=== PATIENT | female | born 1955 | race Caucasian/White ===

== ENCOUNTER 2020-12-01 11:06 | Outpatient (REF) | payer MEDICARE, SELFPAY ==
--- NOTE | ~2020-12-01 | XR_ITS ---
EXAMINATION: XR CHEST CLINICAL INFORMATION: Cough. Left chest pain. Evaluate for lesion. COMPARISON: Previous chest x-ray most recent April 2019 TECHNIQUE: 2 views of the chest were obtained. FINDINGS: The cardiac and mediastinal contours are normal. The lungs are clear. There is no pleural effusion or pneumothorax. There are degenerative changes of the thoracic spine. XR/XR chest 2V IMPRESSION: No evidence for acute disease in the chest.
[2020-12-01 11:52] LABS: MANUAL DIFF FLAG NO
[2020-12-01 12:10] LABS: Basophils Percent Auto 0.7 % (0-2); Eosinophils Absolute Auto 0.2 X10*3/uL (0.0-0.4); Hematocrit 41.2 % (37-47); Hemoglobin 13.5 g/dl (12.0-16.0); Imm Gran Abs Auto 0.01 X10*3/uL (0.00-0.03); Imm Gran Pct Auto 0.2 % (0.0-0.4); Lymphocytes Absolute Auto 1.9 X10*3/uL (1.2-4.9); Lymphocytes Percent Auto 31.1 % (20-40); Mean Corpuscular HGB Conc 32.8 g/dl (31.0-35.0); Mean Corpuscular Volume 94.7 fL (80-98); Mean Platelet Volume 9.8 fL (9.4-12.3); Monocytes Absolute Auto 0.5 X10*3/uL (0.1-1.2); Monocytes Percent Auto 7.9 % (2-11); Neutrophils Absolute Auto 3.4 X10*3/uL (2.0-8.3); Neutrophils Percent Auto 57.1 % (45-73); Platelet Count 232 X10*3/uL (160-400); Red Blood Count 4.35 X10*6/uL (4.20-5.50); Red Cell Distribution Width 12.3 % (11.0-16.0); White Blood Count 5.9 X10*3/uL (4.8-10.8)
[2020-12-01 12:24] LABS: Alanine Aminotransferase 16 U/L (0-31); Albumin Level 4.3 g/dL (3.5-5.0); Alkaline Phosphatase 58 U/L (39-117); Anion Gap 10 (12-20); Aspartate Amino Transferase 20 U/L (5-31); Bilirubin Total 0.4 mg/dL (0.0-1.0); Blood Urea Nitrogen 13 mg/dL (9-16); C Reactive Protein 0.11 mg/dL (< or = 0.50); Calcium 8.9 mg/dL (8.4-10.2); Carbon Dioxide 29 mmol/L (22-29); Chloride 105 mmol/L (96-108); Estimated Glomerular Filt Rate 54; Glucose Random 92 mg/dL (60-115); Potassium 4.8 mmol/L (3.3-5.1); Sodium 139 mmol/L (135-145); Total Protein 6.4 g/dL (6.5-8.0)
== END 2020-12-01 11:07 | disposition home or self-care (01) ==
LOC: HO.LAB 11:06
PROVIDERS: PCP Internal Medicine; Visit Provider Internal Medicine
DX: R05 Cough (principal); J44.9 Chronic obstructive pulmonary disease, unspecified; N18.9 Chronic kidney disease, unspecified
CPT/HCPCS: 36415; 71046; 80053; 82550; 85025; 86140

== ENCOUNTER 2021-03-11 11:31 | Outpatient (REF) | payer MEDICARE, SELFPAY ==
[2021-03-11 13:48] LABS: Anion Gap 12 (12-20); Blood Urea Nitrogen 12 mg/dL (9-16); Carbon Dioxide 29 mmol/L (22-29); Chloride 105 mmol/L (96-108); Estimated Glomerular Filt Rate > 60; Glucose Random 71 mg/dL (60-115); Potassium 4.6 mmol/L (3.3-5.1); Sodium 141 mmol/L (135-145)
[2021-03-11 14:11] LABS: Vitamin D 25-OH Total 35.1 ng/mL (>30)
== END 2021-03-11 11:32 | disposition home or self-care (01) ==
LOC: HO.10HDL 11:31
PROVIDERS: PCP Internal Medicine; Visit Provider Internal Medicine
DX: J44.9 Chronic obstructive pulmonary disease, unspecified (principal); N18.9 Chronic kidney disease, unspecified; M85.80 Other specified disorders of bone density and structure, unspecified site
CPT/HCPCS: 36415; 80048; 82306

== ENCOUNTER 2021-04-26 10:28 | Outpatient (REF) | payer MEDICARE, SELFPAY ==
--- NOTE | ~2021-04-26 | MM_ITS ---
EXAMINATION: MM SCREENING DIGITAL BREAST TOMOSYNTHESIS, BILATERAL CLINICAL INFORMATION: Screening. Asymptomatic. The lifetime risk of breast cancer based on the Tyrer-Cuzick Model is 8%. COMPARISON: Mammography: 04/04/2020, 07/03/2018, 01/18/2017 TECHNIQUE: Digital breast tomosynthesis is performed in both the craniocaudal and mediolateral oblique views along with computer-aided detection (CAD). Synthesized 2D images are generated from the tomosynthesis. FINDINGS: The breasts are heterogeneously dense, which may obscure small masses (ACR BI-RADS breast composition Category c). There are no significant masses, abnormal calcifications, or other abnormalities. Parenchymal pattern is similar to prior studies. The axilla and skin contours are unremarkable. MM/MM tomosynthesis screening BI IMPRESSION: No mammographic evidence of malignancy. ASSESSMENT: BI-RADS 1: Negative RECOMMENDATION: Routine annual mammography screening. This patient's information was entered into a reminder system with a target due date for their next mammogram.
== END 2021-04-26 10:29 | disposition home or self-care (01) ==
LOC: HO.MAMMO 10:28
PROVIDERS: PCP Internal Medicine; Visit Provider Internal Medicine
DX: Z12.31 Encounter for screening mammogram for malignant neoplasm of breast (principal)
CPT/HCPCS: 77063; 77067

== ENCOUNTER 2021-05-20 11:51 | Outpatient (REF) | payer MEDICARE, SELFPAY ==
[2021-05-20 13:28] LABS: MANUAL DIFF FLAG NO
[2021-05-20 13:35] LABS: Basophils Percent Auto 0.3 % (0-2); Eosinophils Absolute Auto 0.1 X10*3/uL (0.0-0.4); Eosinophils Percent Auto 1.6 % (0-4); Hematocrit 41.4 % (37-47); Hemoglobin 13.2 g/dl (12.0-16.0); Imm Gran Abs Auto 0.03 X10*3/uL (0.00-0.03); Imm Gran Pct Auto 0.3 % (0.0-0.4); Lymphocytes Absolute Auto 1.8 X10*3/uL (1.2-4.9); Lymphocytes Percent Auto 20.4 % (20-40); Mean Corpuscular HGB Conc 31.9 g/dl (31.0-35.0); Mean Corpuscular Hemoglobin 31.1 pg (27.0-33.0); Mean Corpuscular Volume 97.6 fL (80-98); Mean Platelet Volume 9.5 fL (9.4-12.3); Monocytes Absolute Auto 0.7 X10*3/uL (0.1-1.2); Monocytes Percent Auto 7.7 % (2-11); Neutrophils Absolute Auto 6.2 X10*3/uL (2.0-8.3); Neutrophils Percent Auto 69.7 % (45-73); Platelet Count 201 X10*3/uL (160-400); Red Blood Count 4.24 X10*6/uL (4.20-5.50); Red Cell Distribution Width 13.2 % (11.0-16.0)
[2021-05-20 14:09] LABS: Alanine Aminotransferase 22 U/L (0-31); Albumin Level 4.2 g/dL (3.5-5.0); Alkaline Phosphatase 61 U/L (39-117); Anion Gap 12 (12-20); Aspartate Amino Transferase 24 U/L (5-31); Bilirubin Total 0.4 mg/dL (0.0-1.0); Blood Urea Nitrogen 14 mg/dL (9-16); Calcium 9.3 mg/dL (8.4-10.2); Carbon Dioxide 31 mmol/L (22-29); Chloride 103 mmol/L (96-108); Estimated Glomerular Filt Rate > 60; Glucose Random 53 mg/dL (60-115); Potassium 4.5 mmol/L (3.3-5.1); Sodium 141 mmol/L (135-145); Total Protein 6.4 g/dL (6.5-8.0)
== END 2021-05-20 11:52 | disposition home or self-care (01) ==
LOC: HO.10HDL 11:51
PROVIDERS: PCP Internal Medicine; Visit Provider Internal Medicine
DX: J44.9 Chronic obstructive pulmonary disease, unspecified (principal); N18.9 Chronic kidney disease, unspecified
CPT/HCPCS: 36415; 80053; 85025

== ENCOUNTER 2021-11-11 10:57 | Outpatient (REF) | payer MEDICARE, SELFPAY ==
[2021-11-11 13:59] LABS: MANUAL DIFF FLAG NO
[2021-11-11 14:05] LABS: Basophils Percent Auto 0.3 % (0-2); Eosinophils Absolute Auto 0.1 X10*3/uL (0.0-0.4); Eosinophils Percent Auto 0.6 % (0-4); Hematocrit 42.8 % (37.0-47.0); Imm Gran Abs Auto 0.03 X10*3/uL (0.00-0.03); Imm Gran Pct Auto 0.3 % (0.0-0.4); Lymphocytes Absolute Auto 1.5 X10*3/uL (1.2-4.9); Lymphocytes Percent Auto 13.9 % (20-40); Mean Corpuscular HGB Conc 32.7 g/dl (31.0-35.0); Mean Corpuscular Hemoglobin 32.9 pg (27.0-33.0); Mean Corpuscular Volume 100.7 fL (80.0-98.0); Mean Platelet Volume 9.7 fL (9.4-12.3); Monocytes Absolute Auto 0.7 X10*3/uL (0.1-1.2); Monocytes Percent Auto 6.3 % (2-11); Neutrophils Absolute Auto 8.4 x10*3/uL (2.0-8.3); Neutrophils Percent Auto 78.6 % (45-73); Platelet Count 233 X10*3/uL (160-400); Red Blood Count 4.25 X10*6/uL (4.20-5.50); Red Cell Distribution Width 13.2 % (11.0-16.0); White Blood Count 10.6 X10*3/uL (4.8-10.8)
[2021-11-11 14:38] LABS: Anion Gap 12 (12-20); Blood Urea Nitrogen 15 mg/dL (9-16); Calcium 9.4 mg/dL (8.4-10.2); Carbon Dioxide 28 mmol/L (22-29); Chloride 104 mmol/L (96-108); Estimated Glomerular Filt Rate 59; Free T4 (Free Thyroxine) 0.99 ng/dL (0.71-1.85); Glucose Random 166 mg/dL (60-115); Potassium 4.2 mmol/L (3.3-5.1); Sodium 140 mmol/L (135-145); Thyroid Stimulating Hormone 1.27 uIU/mL (0.32-4.0)
[2021-11-11 14:41] LABS: Vitamin B12 > 2000 pg/mL (200-900)
== END 2021-11-11 10:58 | disposition home or self-care (01) ==
LOC: HO.10HDL 10:57
PROVIDERS: Visit Provider Internal Medicine
DX: Z01.818 Encounter for other preprocedural examination (principal); R53.83 Other fatigue; J44.9 Chronic obstructive pulmonary disease, unspecified
CPT/HCPCS: 36415; 80048; 82306; 82607; 84439; 84443; 85025

== ENCOUNTER 2021-11-24 11:07 | Outpatient (REF) | payer MEDICARE, SELFPAY ==
[2021-11-24 14:15] LABS: Estimated Average Glucose 111 mg/dL; Hemoglobin A1c % 5.5 %
[2021-11-24 14:25] LABS: Alanine Aminotransferase 19 U/L (0-31); Albumin Level 4.5 g/dL (3.5-5.0); Alkaline Phosphatase 54 U/L (39-117); Anion Gap 11 (12-20); Aspartate Amino Transferase 26 U/L (5-31); Bilirubin Total 0.4 mg/dL (0.0-1.0); Blood Urea Nitrogen 16 mg/dL (9-16); C Reactive Protein 0.04 mg/dL (< or = 0.50); Calcium 9.5 mg/dL (8.4-10.2); Carbon Dioxide 29 mmol/L (22-29); Chloride 103 mmol/L (96-108); Estimated Glomerular Filt Rate > 60; Glucose Random 76 mg/dL (60-115); Potassium 4.4 mmol/L (3.3-5.1); Sodium 139 mmol/L (135-145); Total Protein 6.8 g/dL (6.5-8.0)
== END 2021-11-24 11:08 | disposition home or self-care (01) ==
LOC: HO.10HDL 11:07
PROVIDERS: Visit Provider Internal Medicine
DX: R53.83 Other fatigue (principal); J44.9 Chronic obstructive pulmonary disease, unspecified; R73.9 Hyperglycemia, unspecified
CPT/HCPCS: 36415; 80053; 83036; 86140

== ENCOUNTER 2022-02-07 10:09 | Outpatient (REF) | payer MEDICARE, SELFPAY ==
--- NOTE | ~2022-02-07 | XR_ITS ---
EXAMINATION: XR CHEST CLINICAL INFORMATION: COPD COMPARISON: Previous chest x-ray November 2020 TECHNIQUE: 2 views of the chest were obtained. FINDINGS: The cardiac and mediastinal contours are stable. The lungs are clear. There is no pleural effusion or pneumothorax. There are degenerative changes of the spine. XR/XR chest 2V IMPRESSION: No evidence for acute disease in the chest.
== END 2022-02-07 10:10 | disposition home or self-care (01) ==
LOC: HO.XRAY 10:09
PROVIDERS: PCP Internal Medicine; Visit Provider Internal Medicine
DX: R53.83 Other fatigue (principal); J44.9 Chronic obstructive pulmonary disease, unspecified; Z72.0 Tobacco use
CPT/HCPCS: 71046

== ENCOUNTER 2022-04-26 12:04 | Outpatient (REF) | payer MEDICARE, SELFPAY ==
[2022-04-26 13:41] LABS: MANUAL DIFF FLAG NO
[2022-04-26 13:44] LABS: Basophils Absolute Auto 0.1 X10*3/uL (0.0-0.2); Basophils Percent Auto 0.7 % (0-2); Eosinophils Absolute Auto 0.1 X10*3/uL (0.0-0.4); Eosinophils Percent Auto 0.7 % (0-4); Hematocrit 42.2 % (37.0-47.0); Hemoglobin 13.9 g/dl (12.0-16.0); Imm Gran Abs Auto 0.02 X10*3/uL (0.00-0.03); Imm Gran Pct Auto 0.3 % (0.0-0.4); Lymphocytes Absolute Auto 1.8 X10*3/uL (1.2-4.9); Lymphocytes Percent Auto 24.2 % (20-40); Mean Corpuscular HGB Conc 32.9 g/dl (31.0-35.0); Mean Platelet Volume 9.5 fL (9.4-12.3); Monocytes Absolute Auto 0.5 X10*3/uL (0.1-1.2); Monocytes Percent Auto 6.8 % (2-11); Neutrophils Percent Auto 67.3 % (45-73); Platelet Count 181 X10*3/uL (160-400); Red Blood Count 4.35 X10*6/uL (4.20-5.50); White Blood Count 7.4 X10*3/uL (4.8-10.8)
[2022-04-26 14:14] LABS: Alanine Aminotransferase 16 U/L (0-31); Albumin Level 4.2 g/dL (3.5-5.0); Alkaline Phosphatase 54 U/L (39-117); Anion Gap 11 (12-20); Aspartate Amino Transferase 20 U/L (5-31); Bilirubin Total 0.3 mg/dL (0.0-1.0); Blood Urea Nitrogen 15 mg/dL (9-16); C Reactive Protein 0.15 mg/dL (< or = 0.50); Carbon Dioxide 29 mmol/L (22-29); Chloride 105 mmol/L (96-108); Estimated Glomerular Filt Rate > 60; Glucose Random 71 mg/dL (60-115); Potassium 4.8 mmol/L (3.3-5.1); Sodium 140 mmol/L (135-145); Total Protein 6.4 g/dL (6.5-8.0)
[2022-04-26 14:30] LABS: Thyroid Stimulating Hormone 1.07 uIU/mL (0.32-4.0)
== END 2022-04-26 12:05 | disposition home or self-care (01) ==
LOC: HO.10HDL 12:04
PROVIDERS: Visit Provider Internal Medicine
DX: R53.83 Other fatigue (principal); J44.9 Chronic obstructive pulmonary disease, unspecified; R25.1 Tremor, unspecified
CPT/HCPCS: 36415; 80053; 84439; 84443; 85025; 86140

== ENCOUNTER 2022-05-02 09:31 | Outpatient (REF) | payer MEDICARE, SELFPAY ==
--- NOTE | ~2022-05-02 | MM_ITS ---
EXAMINATION: MM SCREENING DIGITAL BREAST TOMOSYNTHESIS, BILATERAL CLINICAL INFORMATION: Screening. Asymptomatic. The lifetime risk of breast cancer based on the Tyrer-Cuzick Model is 10%. COMPARISON: Mammography: 04/26/2021, 04/04/2020, 07/03/2018 TECHNIQUE: Digital breast tomosynthesis is performed in both the craniocaudal and mediolateral oblique views along with computer-aided detection (CAD). Synthesized 2D images are generated from the tomosynthesis. FINDINGS: The breasts are heterogeneously dense, which may obscure small masses (ACR BI-RADS breast composition Category c). There are no significant masses, abnormal calcifications, or other abnormalities. Parenchymal pattern is similar to prior studies. There is no developing density or architectural abnormality. The axilla and skin contours are unremarkable. No significant changes. MM/MM tomosynthesis screening BI IMPRESSION: No mammographic evidence of malignancy. ASSESSMENT: BI-RADS 1: Negative RECOMMENDATION: Routine annual mammography screening. This patient's information was entered into a reminder system with a target due date for their next mammogram.
== END 2022-05-02 09:32 | disposition home or self-care (01) ==
LOC: HO.MAMMO 09:31
PROVIDERS: PCP Internal Medicine; Visit Provider Internal Medicine
DX: Z12.31 Encounter for screening mammogram for malignant neoplasm of breast (principal)
CPT/HCPCS: 77063; 77067

== ENCOUNTER 2022-07-14 11:16 | Outpatient (REF) | payer MEDICARE, SELFPAY ==
[2022-07-14 13:30] LABS: MANUAL DIFF FLAG NO
[2022-07-14 13:34] LABS: Basophils Percent Auto 0.4 % (0-2); Eosinophils Absolute Auto 0.1 X10*3/uL (0.0-0.4); Eosinophils Percent Auto 1.4 % (0-4); Hemoglobin 13.8 g/dl (12.0-16.0); Imm Gran Abs Auto 0.02 X10*3/uL (0.00-0.03); Imm Gran Pct Auto 0.3 % (0.0-0.4); Lymphocytes Absolute Auto 1.3 X10*3/uL (1.2-4.9); Lymphocytes Percent Auto 19.3 % (20-40); Mean Corpuscular HGB Conc 32.9 g/dl (31.0-35.0); Mean Corpuscular Hemoglobin 30.7 pg (27.0-33.0); Mean Corpuscular Volume 93.3 fL (80.0-98.0); Monocytes Absolute Auto 0.6 X10*3/uL (0.1-1.2); Monocytes Percent Auto 8.9 % (2-11); Neutrophils Absolute Auto 4.8 x10*3/uL (2.0-8.3); Neutrophils Percent Auto 69.7 % (45-73); Platelet Count 214 X10*3/uL (160-400); Red Cell Distribution Width 12.2 % (11.0-16.0)
[2022-07-14 14:38] LABS: Vitamin B12 > 2000 pg/mL (200-900)
== END 2022-07-14 11:17 | disposition home or self-care (01) ==
LOC: HO.10HDL 11:16
PROVIDERS: Visit Provider Internal Medicine Medical Oncology
DX: R74.8 Abnormal levels of other serum enzymes (principal)
CPT/HCPCS: 36415; 82607; 85025

== ENCOUNTER 2022-08-24 11:30 | Outpatient (REF) | payer MEDICARE, SELFPAY ==
--- NOTE | ~2022-08-24 | XR_ITS ---
EXAMINATION: XR CHEST CLINICAL INFORMATION: Shortness of breath, COPD COMPARISON: Chest radiographs 02/07/2022, 12/01/2020 TECHNIQUE: 2 views of the chest were obtained. FINDINGS: There is subtle fullness left hilum with subsegmental atelectasis anterior left upper lobe and fine perihilar reticulonodular opacities representing change from prior exams. No effusion. The costophrenic sulci are clear. The heart is normal in size. The vascularity is normal. Right lung is unremarkable. Right hilum and visualized mediastinal contours are unremarkable. No acute bony abnormality. XR/XR chest 2V IMPRESSION: 1. Subsegmental atelectasis anterior left upper lobe with subtle fullness left hilum. 2. Fine perihilar reticulonodular opacities representing change from prior exams. No effusion. 3. Recommend CT chest with contrast for further evaluation.
== END 2022-08-24 11:31 | disposition home or self-care (01) ==
LOC: HO.XRAY 11:30
PROVIDERS: PCP Internal Medicine; Visit Provider Internal Medicine
DX: J44.9 Chronic obstructive pulmonary disease, unspecified (principal); R06.02 Shortness of breath
CPT/HCPCS: 71046

== ENCOUNTER 2022-09-06 14:10 | Outpatient (REF) | payer MEDICARE, SELFPAY ==
[2022-09-06 15:03] LABS: Anion Gap 15 (12-20); Blood Urea Nitrogen 12 mg/dL (9-16); Calcium 9.4 mg/dL (8.4-10.2); Carbon Dioxide 28 mmol/L (22-29); Chloride 98 mmol/L (96-108); Estimated Glomerular Filt Rate > 60; Glucose Random 190 mg/dL (60-115); Potassium 4.3 mmol/L (3.3-5.1); Sodium 137 mmol/L (135-145)
== END 2022-09-06 14:11 | disposition home or self-care (01) ==
LOC: HO.LAB 14:10
PROVIDERS: PCP Internal Medicine; Referring Provider Internal Medicine Medical Oncology; Visit Provider Internal Medicine
DX: J44.9 Chronic obstructive pulmonary disease, unspecified (principal)
CPT/HCPCS: 36415; 80048

== ENCOUNTER 2022-09-07 12:15 | Outpatient (REF) | payer MEDICARE, SELFPAY ==
[2022-09-07 13:38] LABS: Hematocrit 40.9 % (37.0-47.0); Mean Corpuscular HGB Conc 31.8 g/dl (31.0-35.0); Mean Corpuscular Hemoglobin 29.4 pg (27.0-33.0); Mean Corpuscular Volume 92.5 fL (80.0-98.0); Mean Platelet Volume 9.6 fL (9.4-12.3); NRBC Pct Auto 0.2 /100WBC (0.0-0.2); Platelet Count 229 X10*3/uL (160-400); Red Blood Count 4.42 X10*6/uL (4.20-5.50); Red Cell Distribution Width 12.3 % (11.0-16.0); White Blood Count 18.7 X10*3/uL (4.8-10.8)
[2022-09-07 14:06] LABS: Atypical Lymph Absolute Manual 0.2 x10*3/uL; Atypical Lymphs Percent Manual 1 % (0-6); Band Neutrophils Percent 8 % (3-5); Basophils Abs Manual 0.2 X10*3/uL (0.0-0.2); Basophils Percent Manual 1 % (0-2); Lymphocytes Absolute Manual 1.3 X10*3/uL (1.2-4.9); Lymphocytes Percent Manual 7 % (20-40); Metamyelocytes Absolute 0.4 X10*3/uL; Metamyelocytes Percent 2 %; Monocytes Absolute Manual 0.6 X10*3/uL (0.1-1.2); Monocytes Percent Manual 3 % (2-11); Neutrophils Absolute Manual 16.1 X10*3/uL (2.0-8.3); Neutrophils Percent Manual 78 % (45-73)
[2022-09-07 14:07] LABS: Platelet Estimate NORMAL (NORMAL); Platelet Morphology Comment NORMAL; RBC Morphology NORMAL
[2022-09-07 14:11] LABS: Alanine Aminotransferase 23 U/L (0-31); Albumin Level 3.4 g/dL (3.5-5.0); Alkaline Phosphatase 66 U/L (39-117); Anion Gap 15 (12-20); Aspartate Amino Transferase 50 U/L (5-31); Bilirubin Total 0.4 mg/dL (0.0-1.0); Blood Urea Nitrogen 13 mg/dL (9-16); C Reactive Protein 16.31 mg/dL (< or = 0.50); Calcium 9.6 mg/dL (8.4-10.2); Carbon Dioxide 30 mmol/L (22-29); Chloride 97 mmol/L (96-108); Estimated Glomerular Filt Rate > 60; Free T4 (Free Thyroxine) 1.05 ng/dL (0.71-1.85); Glucose Random 89 mg/dL (60-115); Lipase 18 U/L (8-78); Potassium 4.3 mmol/L (3.3-5.1); Sodium 138 mmol/L (135-145); Thyroid Stimulating Hormone 0.85 uIU/mL (0.32-4.0)
== END 2022-09-07 12:16 | disposition home or self-care (01) ==
LOC: HO.10HDL 12:15
PROVIDERS: Visit Provider Internal Medicine
DX: R53.83 Other fatigue (principal); J44.9 Chronic obstructive pulmonary disease, unspecified; K21.9 Gastro-esophageal reflux disease without esophagitis; R63.4 Abnormal weight loss
CPT/HCPCS: 36415; 80053; 83690; 84439; 84443; 85007; 85027; 86140

== ENCOUNTER 2022-09-07 12:45 | Outpatient (REF) | payer MEDICARE, SELFPAY ==
--- NOTE | ~2022-09-07 | CT_ITS ---
EXAMINATION: CT CHEST WITHOUT AND WITH CONTRAST CLINICAL INFORMATION: Shortness of breath, abnormal chest x-ray and fullness of the left hilum. COMPARISON: None. TECHNIQUE: Multidetector volumetric CT imaging of the chest was obtained before and after the administration of 50 mL of Omnipaque 350 intravenous contrast without immediate adverse reactions. Axial MIP volume rendering provided. Sagittal and coronal reformatted images were obtained. This CT examination was performed using dose optimization techniques as appropriate, variously including the following: *Automated exposure control *Adjustment of mA and/or kV according to patient size (this includes techniques or standardized protocols for targeted exams where dose is matched to indication/reason for exam; i.e. extremities or head) *Use of iterative reconstruction technique DLP: 140 mGy-cm FINDINGS: The exam is limited due to lack of IV contrast. TERRAZZO ROLLER: Well-inflated lungs. There is mild haziness in the left upper lungs. LUNGS: There is bilateral emphysematous changes of both lungs. There is a dense left upper lobe consolidation/atelectasis with slight ipsilateral mediastinal shift. The left upper lobe bronchus has a soft tissue mass or debris and is best visualized on axial image 24/4 through 26/4. An Intrabronchial lesion is suspected. No metastatic pulmonary nodules visualized. There is plate-like atelectasis in the right upper lobe medially. MEDIASTINUM: The heart size and the great vessels are normal caliber. The thyroid lobes are symmetric and normal. The central trachea and the right bronchus are widely patent. The left proximal bronchus is patent. There is calcification of left mid bronchus with soft tissue mass or secretions. There is abnormal subcarinal soft tissue mass/lymph node measuring 2.6 x 3.8 cm. Prominent left hilar lymph nodes are seen. CORONARY ARTERY CALCIFICATION: None visualized on this study. PLEURA: Tiny left pleural effusion is noted. No pleural calcification or pneumothorax seen. AXILLA: Small shotty lymph nodes in the axilla, nonspecific. The chest wall is unremarkable. UPPER ABDOMEN: Visualized liver, spleen, pancreas and bilateral adrenal glands are unremarkable. OSSEOUS STRUCTURES: No aggressive lytic or sclerotic process seen. There is moderate ventral spondylosis in the mid and lower dorsal spine. CT/CT chest wo/w IV con IMPRESSION: Large left upper lobe consolidation/atelectasis most likely secondary to obstructive mass, lesion or debris in the left upper lobe bronchus. There is abnormal left hilar and mediastinal adenopathy. Recommend bronchoscopy for further evaluation. Diffuse emphysema without any underlying metastatic lung nodules. Minimal plate-like atelectasis of the right upper lobe. Fleischner guidelines were followed.
[2022-09-07] MEDS: iohexoL 350 MG/ML 100 ML INFUS..BTL IV (13:35)
== END 2022-09-07 12:46 | disposition home or self-care (01) ==
LOC: HO.CT 12:45
PROVIDERS: PCP Internal Medicine; Visit Provider Internal Medicine
DX: R06.02 Shortness of breath (principal); R94.31 Abnormal electrocardiogram [ECG] [EKG]
CPT/HCPCS: 71270; Q9967

== ENCOUNTER → 2022-09-09 08:16 | Outpatient (BNVA) | payer MEDICARE, SELFPAY | PROVIDERS: PCP Internal Medicine; Visit Provider Surgery | DX: J98.11 Atelectasis (principal); R59.0 Localized enlarged lymph nodes | CPT/HCPCS: 99202 ==

== ENCOUNTER 2022-09-12 09:22 | Day surgery (SDC) | payer MEDICARE, SELFPAY ==
[2022-09-12] VITALS (11 sets, daily range): BP systolic 92–126; BP diastolic 56–81; PULSE 90–114; RESP 18–23; TEMP 36.7–37.3; O2SAT 87–95; BMI 21.9
--- NOTE | 2022-09-12 08:18 | MHC.SHP ---
Pre-Procedural Eval Section A Date of Service: 09/12/22 The patient is an INPATIENT: No The History & Physical has been completed within 30 days and I have reviewed it.: No Section B Chief Complaint: Pneumonia, unspecified organism Details of Present Illness: 67-year-old woman current smoker currently smoking 4-5 cigarettes per day but previously was 1-1 and half packs per day starting at age 14 presented to her primary care with progressively worsening shortness of breath. A chest x-ray was done which showed a mass versus collapse of the left upper lobe and this was followed quite appropriately with a CT scan of the chest which was reviewed interpreted by me directly and discussed at our multidisciplinary conference. This CT scan was done on 09/07/2022 which shows a totally obstructed left upper lobe with the left upper lobe bronchus obstructed at the origin with either mass or mucus/foreign body. In addition, there is significant mediastinal lymphadenopathy including AP window, prevascular, and subcarinal lymph nodes all measuring up to 2 cm in size. Relevant Family History (Specify if Yes): No Relevant Social History: Tobacco Use Present Medications: see Short Stay Collaborative assessment Medical History: No relevant PMH History of Previous Operations: No relevant previous surgery Allergies: Allergies Allergy/AdvReac Type Severity Reaction Status Date / Time Penicillins [PENICILLINS] Allergy Unknown UNKNOWN Unverified 09/09/22 08:48 Review of Systems Sugical H&P ROS: Negative: Constitution, Cardiovascular, Neurological, Psychiatric, Hem-Onc, Allergic/Immunologic, Gastrointestinal, Musculoskeletal and Integumentary and Yes, Specify: Respiratory (cough, Dyspnea) Exam Surgical H&P Exam: Normal: HEENT, Normal: Heart, Normal: Extremities, Normal: Abdomen, Normal: Skin and Normal: Neurological and Significant Findings: Lungs (dimished) Plan Diagnosis/Plan: Change (EBUS and bronchoscopy) I have reviewed the history and physical and performed a pertinent physical examination on my patient. No changes have occurred unless specified.
[2022-09-12] MEDS: Albuterol Sulfate (0.083%) 2.5 MG/3 ML VIAL.NEB INHALE (10:30)
--- NOTE | 2022-09-12 11:15 | HO.ANESPROP2 ---
HPI - Anesthesia Eval Consult details Narrative: 67 F for EBUS and broncoscopy PMFSH Active Problems Active Problems: All Active Problems (Updated 09/12/22 @ 09:42 by Senait Flores RN) Collapse of left lung (Acute) Mediastinal lymphadenopathy (Acute) Past Medical History Medical History (Updated 09/12/22 @ 11:18 by Senait Flores RN) Anxiety COPD (chronic obstructive pulmonary disease) Depression Hip pain, right Family History Family history of problems with anesthesia: No Surgical History Surgical History (Updated 09/12/22 @ 09:40 by Senait Flores RN) History of colonoscopy Hx of tonsillectomy History of Problems with Anesthesia: No Social History Social History Patient Tobacco Use Status: Current everyday Tobacco user Tobacco use type: Cigarette Cigarette Packs Per Day: 0.5 Cigarettes Per Day: 4 Years Smoked: 50 Use of substances other than those prescribed or required for medical reasons: No Substance Use Type Other:: former percocet Are you DNR?: No Advance Directives: No Advance Directives Information Provided: Yes Meds Allergies Allergy/AdvReac Type Severity Reaction Status Date / Time Penicillins [PENICILLINS] Allergy Unknown Rash Verified 09/12/22 09:38 bee pollen [bee stings] Allergy Anaphylaxis Verified 09/12/22 09:38 Home Medications Medication Instructions Recorded Confirmed Last Taken Type alprazolam 0.25 mg tablet (Xanax) 0.25 mg PO BID PRN Anxiety 09/09/22 09/12/22 09/12/22 01:30 History buspirone 10 mg tablet 10 mg PO DAILY 09/09/22 09/12/22 09/12/22 06:30 History clonidine HCl 0.1 mg tablet 0.05 mg PO BID 09/09/22 09/12/22 Unknown History fluoxetine 20 mg capsule 20 mg PO BID 09/09/22 09/12/22 09/12/22 06:30 History fluticasone 250 mcg-salmeterol 50 1 inh inhalation BID 09/09/22 09/12/22 09/12/22 06:30 History mcg/dose blistr powdr for inhalation (Wixela Inhub) methadone 5 mg tablet 5 mg PO DAILY 09/09/22 09/12/22 09/12/22 07:30 History albuterol sulfate 2.5 mg/3 mL 1 vial inhalation Q4H PRN 09/12/22 09/12/22 Unknown History (0.083 %) solution for nebulization Shortness Of Breath Or Wheezing Exam Exam Date and Time: September 12, 2022 1115 Height,Weight and Vital Signs: Height 5 ft Weight 50.802 kg Last Vital Signs Temp 98.9 F 09/12/22 09:54 Pulse 96 09/12/22 09:54 Resp 20 09/12/22 09:54 BP 126/72 09/12/22 09:54 Pulse Ox 87 L 09/12/22 09:54 O2 Del Method 09/12/22 09:54 Airway Mallampati Class: III TM Dist: >3cm Denture: Upper and Lower Loose/Missing/Broken Teeth: Yes Heart: S1,S2 Lungs: diminished breath sounds Assessment and Plan Assessment Anesthesia Assessment: Anesthesia Plan Discussed and Chart Reviewed Final Anesthetic Review Family History of Problems with Anesthesia: No History of Problems with Anesthesia: No NPO: Yes ASA Class: III (urgent ) Final Preanesthetic Review: Meds/Allgs Chart Reviewed, Consent Obtained/Reviewed and Anes Risks/Benef Reviewed Patient Risk: High Procedure Risk: Intermediate Anesthetic Plan Anesthetic Plan: GA Disposition: Standard PACU
--- NOTE | 2022-09-12 13:33 | PM.OP ---
Brief Operative Note Date of Service: 09/12/22 Pre-op diagnosis: atelectasis, lymphadenopathy Post-op diagnosis: other (lung cancer, post obstructive pneumonia) Procedure: EBUS with TBNA, bronchoscopy with biopsy Implants: Surgeon: Pb Levine MD Anesthesia: GETA Was an Field Marketing Specialist used for this Procedure?: No Estimated blood loss (mL): 1 Pathology: other (DARLENE biopsy, stsation 7 tbna) Condition: stable Disposition: same day
--- NOTE | 2022-09-20 03:26 | OP_ITS ---
SURGEON: Pb Levine MD PREOPERATIVE DIAGNOSIS: POSTOPERATIVE DIAGNOSIS: PROCEDURE PERFORMED: Endobronchial ultrasound, bronchoscopy with transbronchial needle aspiration, bronchoscopy with biopsy. ESTIMATED BLOOD LOSS: COMPLICATIONS: ANESTHESIA: General endotracheal intubation. ASSISTANTS: SPECIMENS: PREOPERATIVE DIAGNOSES: Lymphadenopathy and atelectasis. POSTOPERATIVE DIAGNOSES: Lung cancer, postobstructive pneumonia, and lymphadenopathy. SURVEILLANCE SENSOR OPERATOR: None. DESCRIPTION OF PROCEDURE: After the patient was adequately sedated, the flexible digital bronchoscope was inserted over the ET tube to the level of the main briana. Using the endobronchial ultrasound, the lymph node stations were evaluated. The patient had a large station 7 lymph node. No significant paratracheal lymph node noted. Using ultrasound guidance, real-time transbronchial needle aspirations were collected. There were positive lymphocytes in the fluid, small cells suggesting good sampling. Although, malignancy could not be ruled in. After collecting 6 passes on the lymph node, EBUS was removed and replaced with the regular bronchoscope. The bronchoscope was navigated to the entire tracheobronchial tree. There was, however, what appeared to be a fungating mass obstructing the left upper lobe bronchus. It was also friable in nature. Please refer to . Using forceps, endobronchial biopsies were collected of the left upper lobe mass-like density. Specimens sent to pathology. Bronchial washings are also collected. The patient did have purulent secretions from the small opening of the left upper lobe. Those were rinsed and collected and sent to microbiology. Epinephrine was used with good hemostasis. No evidence of any bleeding afterwards. The patient was on oxygen prior to the procedure and she also required the same amount of oxygen after the procedure. The procedure completed. The total endoscopic time approximately half an hour. No apparent complications. INTERPRETATION: 1. Endobronchial ultrasound bronchoscopy with TBNA, 1 station, station 7. 2. Endobronchial biopsies of the left upper lobe. 3. Bronchial washings from the left upper lobe. Pb Levine MD MR/MODL / [id number]
== END 2022-09-12 15:46 | disposition home or self-care (01) ==
PROVIDERS: PCP Internal Medicine; Visit Provider Hospitalist
PROC: (CPT 31625; principal; 2022-09-12 11:00)
DX: C34.12 Malignant neoplasm of upper lobe, left bronchus or lung (principal); J98.11 Atelectasis; R59.0 Localized enlarged lymph nodes; J44.0 Chronic obstructive pulmonary disease with (acute) lower respiratory infection; J18.9 Pneumonia, unspecified organism; F17.210 Nicotine dependence, cigarettes, uncomplicated; Z79.51 Long term (current) use of inhaled steroids; Z79.899 Other long term (current) drug therapy; Z88.0 Allergy status to penicillin
CPT/HCPCS: 31625; 31652; 31623; 87070; 87077; 87186; 87205; 88112; 88172; 88173; 88177; 88305; 88341; 88342; J0171; J2250; J3010

== ENCOUNTER → 2022-09-14 10:18 | Outpatient (BNVA) | payer MEDICARE, SELFPAY | PROVIDERS: PCP Internal Medicine; Visit Provider Hospitalist | DX: C34.90 Malignant neoplasm of unspecified part of unspecified bronchus or lung (principal); J96.20 Acute and chronic respiratory failure, unspecified whether with hypoxia or hypercapnia; J18.9 Pneumonia, unspecified organism; J44.9 Chronic obstructive pulmonary disease, unspecified; J98.11 Atelectasis; R59.0 Localized enlarged lymph nodes; F17.210 Nicotine dependence, cigarettes, uncomplicated; Z99.81 Dependence on supplemental oxygen | CPT/HCPCS: 99202 ==

== ENCOUNTER 2022-09-20 09:36 | Outpatient (REF) | payer MEDICARE, SELFPAY ==
--- NOTE | ~2022-09-20 | XR_ITS ---
EXAMINATION: XR CHEST CLINICAL INFORMATION: Chest x-ray 08/24/[address] chest 09/07/2022 COMPARISON: None TECHNIQUE: 2 views of the chest were obtained. FINDINGS: The right lung is expanded and clear. There is haziness seen throughout the left lung with loss of left lung volume and mild upward tilting of left diaphragm. There is a soft tissue density/mass overlying the left hilar and suprahilar region more obvious in the present exam. Heart size is likely normal. Pulmonary vascularity is normal. No gross bony abnormality. XR/XR chest 2V IMPRESSION: 1. Left hilar and suprahilar soft tissue mass with loss of left lung volume and upward tilting of left diaphragm. 2. The right lung is expanded and clear. 3. No major change compared to previous chest x-ray 08/24/2022.
== END 2022-09-20 09:37 | disposition home or self-care (01) ==
LOC: HO.XRAY 09:36
PROVIDERS: Visit Provider Internal Medicine Medical Oncology
DX: J18.9 Pneumonia, unspecified organism (principal)
CPT/HCPCS: 71046

== ENCOUNTER 2022-10-05 11:52 | Outpatient (REF) | payer MEDICARE, SELFPAY | END 2022-10-05 11:53 | disposition home or self-care (01) | LOC: HO.CT 11:52 | PROVIDERS: PCP Internal Medicine; Visit Provider Internal Medicine | DX: Z13.89 Encounter for screening for other disorder (principal) ==

== ENCOUNTER 2022-10-06 11:49 | Outpatient (REF) | payer MEDICARE, SELFPAY ==
--- NOTE | ~2022-10-06 | CT_ITS ---
EXAMINATION: CT ABDOMEN AND PELVIS WITH CONTRAST CLINICAL INFORMATION: Staging small cell lung cancer. COMPARISON: 01/31/2017. TECHNIQUE: Multidetector volumetric images were obtained from the superior aspect of the liver through the pubic symphysis following administration 85 mL of Omnipaque 350 intravenous contrast. Sagittal and coronal reformatted images were obtained on the technologist's workstation. Oral contrast: Yes This CT examination was performed using dose optimization techniques as appropriate, variously including the following: *Automated exposure control *Adjustment of mA and/or kV according to patient size (this includes techniques or standardized protocols for targeted exams where dose is matched to indication/reason for exam; i.e. extremities or head) *Use of iterative reconstruction technique DLP: 190 mGy-cm FINDINGS: LUNG BASES: There are changes of centrilobular emphysema present. There is some bronchial wall thickening seen without bronchiectasis. There is some airspace consolidation seen within the lingula. No pleural or pericardial effusion. LIVER, GALLBLADDER, AND BILIARY TREE: There is a 3 mm low-density lesion seen within segment 2 of the liver. This may represent a cyst. No intrahepatic bile duct dilatation is present. The gallbladder is contracted and not well evaluated. There is a 3 mm calcification adjacent to the common bile duct. PANCREAS: There is some fatty atrophy of the head of the pancreas. About the junctions of the head and body of the pancreas is question of a 1.1 cm low-density lesion. No definite pancreatic duct dilatation distal to this is appreciated. No peripancreatic inflammatory changes seen. This could possibly represent a serous cystic neoplasm or a mucinous cystic neoplasm. SPLEEN: Unremarkable. ADRENAL GLANDS: Unremarkable. KIDNEYS AND URETERS: The kidneys are normal in size, shape, and attenuation. No hydronephrosis, hydroureter, or calculi seen. No perinephric stranding. There is a 6 mm low-density lesions seen within the interpolar region of the left kidney, which may be cystic or solid in nature. There is a 4 mm low-density lesion seen within the posterior interpolar region of the right kidney, which was noted on previous ultrasound study of 01/31/2017. BLADDER: Unremarkable. GASTROINTESTINAL TRACT: No dilated loops of large or small bowel are evident. No free air or free fluid is seen. The appendix is not identified. No pericolonic inflammatory changes seen. ABDOMINAL WALL: No significant hernia is appreciated. LYMPH NODES: No lymphadenopathy is appreciated. VASCULAR: Unremarkable. Portal vein is patent. Hepatic veins are patent. Visceral vessels are patent. No abdominal aortic aneurysm. PELVIC VISCERA: Unremarkable. OSSEOUS STRUCTURES: No suspicious destructive bony lesion identified. There is degenerative disc disease seen L4-S1 with grade 1 spondylolisthesis L4-L5. There is a grade 1 spondylolisthesis at the L1-L2 level with some disc space disease seen in the lower thoracic spine. CT/CT abdomen pelvis w IV con IMPRESSION: Question pancreatic lesion, which may be related to a serous cystic neoplasm or mucinous cystic neoplasm. Small low-density lesions within the liver and kidneys as described with right renal abnormality identified on previous ultrasound study of 01/31/2017. These may represent small cysts but are too small to definitely characterize and continued follow-up is recommended. Fleischner guidelines were followed.
[2022-10-06] MEDS: iohexoL 350 MG/ML 100 ML INFUS..BTL 85 ML IV (15:10)
[2022-10-06] MEDS: Barium Sulfate Oral (Mocha) 450 ML ORAL.SUSP 900 ML PO (15:11)
== END 2022-10-06 11:50 | disposition home or self-care (01) ==
LOC: HO.CT 11:49
PROVIDERS: PCP Internal Medicine; Visit Provider Internal Medicine
DX: C34.90 Malignant neoplasm of unspecified part of unspecified bronchus or lung (principal)
CPT/HCPCS: 74177; Q9967

== ENCOUNTER 2022-10-13 09:40 | Outpatient (RCR) | payer MEDICARE, SELFPAY ==
[2022-09-20 08:41] VITALS: BP 155/88; PULSE 110; RESP 14; TEMP 36.2; O2SAT 94
--- NOTE | 2022-09-20 08:48 | PM.HEMONCCN ---
Subjective - Subjective Chief complaint: Consult for: Small cell carcinoma of the lung. Patient: new to practice Consult date: 09/20/22 Requesting Physician: Rosana. Primary Care Provider: Festus Quinones MD Medical Summary: DIAGNOSIS: SMALL CELL LUNG CANCER. HPI - Consult Narrative Reason for consult: Consult for: Small cell carcinoma of the lung. Narrative: Isabella Luz is a 67 year old lady, referred by Dr. Quinones on account of recent diagnosis of small cell carcinoma of the lung. She tells me she has been fatigued for a couple of years now. She has history of COPD. A couple of weeks ago she went to [facility] and complained about her pulmonary symptoms. She was prescribed a nebulizer. It did not work too well. Subsequently a chest x-ray was ordered which revealed: 1. Subsegmental atelectasis anterior left upper lobe with subtle fullness left hilum. 2. Fine perihilar reticulonodular opacities representing change from prior exams. No effusion. 3. Recommend CT chest with contrast for further evaluation. CT scan of the chest from 09/07: Large left upper lobe consolidation/atelectasis most likely secondary to obstructive mass, lesion or debris in the left upper lobe bronchus. There is abnormal left hilar and mediastinal adenopathy. Recommend bronchoscopy for further evaluation. Diffuse emphysema without any underlying metastatic lung nodules. Minimal plate-like atelectasis of the right upper lobe. She has significant mediastinal lymph nodes measuring 3-4 cm in size. In addition to that she had endobronchial disease primarily in the distal left mainstem bronchus. She underwent endobronchial ultrasound bronchoscopy with bronchoscopy. The patient did undergo EBUS transbronchial needle aspiration biopsies. Findings consistent with small cell lung cancer. She also had positive cultures for strep pneumo. The patient has a postobstructive pneumonia. She was started on antibiotics and also given prednisone. She also was placed on 3 3 L of oxygen. The patient is having hard time with her breathing. I did recommend she get admitted to the hospital for postobstructive pneumonia and acute on chronic respiratory failure. However, the patient does not want to stay in the hospital she wants to go home. FAMILY HISTORY: No known malignancy. 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 She is . Has no children. She smoked a pack-a-day for 40 years. She used to drink heavily in the past. ROS: She does feel rather fatigued. Denies fever nor chills. Appetite is not so good. She has lost weight. No headache no dizziness. She has chest pain in the mid chest over sternum. She complains of shortness of breath. She has had a cough. It hurts in the mid chest upon coughing. She has yellow some phlegm. Denies any abdominal pain nausea vomiting heartburn indigestion. Bowels are working without any gross blood in it. Denies any dysuria or hematuria. She has back pain. In she sprained her SI ligament periods since then she gets back pain from time to time. She denies any focal weakness. She does complain of depression. She has been on fluoxetine for 6 years. Denies any skin rashes no pruritus. Review of Systems - Constitutional Reports system reviewed and no additional complaints, except as documented, Reports fatigue, Reports weakness, Reports weight loss, Denies fever(s) - Eyes Reports system reviewed and no additional complaints, except as documented, Denies blurry vision - ENT Reports system reviewed and no additional complaints, except as documented - Cardiovascular Reports system reviewed and no additional complaints, except as documented, Reports chest pain, Reports chest pain at rest, Reports shortness of breath - Respiratory Reports no additional respiratory complaints, Reports chest congestion, Reports cough, Reports wheezing, Denies hemoptysis - Gastrointestinal Reports system reviewed and no additional complaints, except as documented, Denies abdominal pain, Denies nausea - Genitourinary Reports no additional female genitourinary complaints - Musculoskeletal Reports system reviewed and no additional complaints, except as documented - Integumentary/Breasts Skin/Breast: Reports no additional skin complaints - Neurologic Reports system reviewed and no additional complaints, except as documented - Psychiatric Reports system reviewed and no additional complaints, except as documented - Endocrine Reports no additional endocrine complaints - Hematologic/Lymphatic Reports system reviewed and no additional complaints, except as documented - Allergic/Immunologic Reports system reviewed and no additional complaints, except as documented Oncology Screenings - ECOG Performance Status ECOG Performance Status: 0 [facility] Medical History: Medical History (Last Reviewed 10/20/22 @ 13:14 by TRIPP Miller) Anxiety COPD (chronic obstructive pulmonary disease) COPD (chronic obstructive pulmonary disease) Depression Hip pain, right Nicotine dependence, cigarettes, uncomplicated Osteopenia Onset Date: ~2015 Pneumonia Small cell lung cancer Onset Date: ~2021 Family History: Family History (Last Reviewed 10/20/22 @ 13:14 by TRIPP Miller) Other No family history of cancer Surgical History: Surgical History (Last Reviewed 10/20/22 @ 13:14 by TRIPP Miller) H/O tooth extraction History of bronchoscopy History of colonoscopy History of tonsillectomy Social History: Social History (Last Reviewed 10/20/22 @ 13:14 by TRIPP Miller) Living Situation History: Household Members: Spouse Housing: House Housing Other:: mobile home Are you a primary critical care specialist to a significant other at home: No Do you presently have visiting nurse or other home services: Do you presently have visiting nurse or other home services comment: unknown Tobacco History: Patient Tobacco Use Status: Never used Tobacco Tobacco use type: Cigarette Years Smoked: 50 Occupation Assessmet: [email or web address] service: No Current occupational status: retired Home Medications and Allergies Home Medications Medication Instructions Recorded Confirmed Type alprazolam 0.25 mg tablet (Xanax) 0.25 mg PO BID PRN Anxiety 09/09/22 10/20/22 History buspirone 10 mg tablet 10 mg PO BID 09/09/22 10/20/22 History clonidine HCl 0.1 mg tablet 0.1 mg PO QID 09/09/22 10/20/22 History fluoxetine 20 mg capsule 20 mg PO DAILY 09/09/22 10/20/22 History fluticasone 250 mcg-salmeterol 50 1 inh inhalation BID 09/09/22 10/20/22 History mcg/dose blistr powdr for inhalation (Wixela Inhub) methadone 5 mg tablet 5 mg PO DAILY 09/09/22 10/13/22 History albuterol sulfate 2.5 mg/3 mL 1 vial inhalation Q4H PRN 09/12/22 10/20/22 History (0.083 %) solution for nebulization Shortness Of Breath Or Wheezing Oxygen Home Use 09/14/22 10/13/22 History albuterol sulfate 90 mcg/actuation 2 puff inhalation Q6H PRN 09/14/22 10/20/22 History aerosol inhaler (ProAir HFA) Shortness Of Breath Or Wheezing nebulizers 09/14/22 10/13/22 History prochlorperazine maleate 10 mg 10 mg PO BID PRN Nausea And 09/14/22 10/20/22 History tablet Vomiting ascorbic acid (vitamin C) 500 mg 500 mg PO DAILY 10/20/22 10/20/22 History tablet (Vitamin C) cholecalciferol (vitamin D3) 25 25 mcg PO DAILY 10/20/22 10/20/22 History mcg (1,000 unit) tablet (Vitamin D3) magnesium oxide 250 mg PO DAILY 10/20/22 10/20/22 History omega 1-anr-bro-fish oil 1,000 mg 1 cap PO DAILY 10/20/22 10/20/22 History (120 mg-180 mg) capsule (Fish Oil) vitamin E 400 unit tablet 180 mg PO DAILY 10/20/22 10/20/22 History Allergies Allergy/AdvReac Type Severity Reaction Status Date / Time Penicillins [PENICILLINS] Allergy Unknown Rash Verified 10/17/22 10:39 bee pollen [bee stings] Allergy Anaphylaxis Verified 10/17/22 10:39 Physical Exam Vital signs: Vital Signs Temp 97.1 F 09/20/22 08:41 Pulse 110 H 09/20/22 08:41 Resp 14 09/20/22 08:41 BP 155/88 H 09/20/22 08:41 Pulse Ox 94 09/20/22 08:41 O2 Del Method 09/20/22 08:41 Intake & Output 09/19/22 09/20/22 09/20/22 18:59 06:59 18:59 Other: Weight 46.6 kg [place] Weight in Grams 08302 Weight 46.6 kg - Constitutional Present: moderate distress - Routine HEENT Exam Head: Present: normal inspection, normocephalic Eye: Present: normal appearance ENT: Present: mucous membranes moist - Routine Respiratory Exam Present: decreased breath sounds, prolonged expiratory phase - Routine Cardiovascular Exam Cardiovascular: Present: S1, S2 - Routine Abdominal Exam Present: normal bowel sounds, nontender. Absent: organomegaly - Routine Extremities Exam Present: nontender Hem/Onc Consult Result - Labs CBC & Chem 7: 10/13/22 10:37 10/13/22 10:37 Assessment and Plan Patient Active problem list reviewed?: Yes (1) Small cell lung cancer Status: Acute Assessment and plan: This is a pleasant 67-year-old lady with 40 pack years of smoking, with recent diagnosis of small cell carcinoma of the lung. She had symptoms of easy fatigability, anorexia weight loss chest pain and shortness of breath. CT scan of the chest from 09/07: Large left upper lobe consolidation/atelectasis most likely secondary to obstructive mass, lesion or debris in the left upper lobe bronchus. There is abnormal left hilar and mediastinal adenopathy. Recommend bronchoscopy for further evaluation. Diffuse emphysema without any underlying metastatic lung nodules. Minimal plate-like atelectasis of the right upper lobe. She has significant mediastinal lymph nodes measuring 3-4 cm in size. In addition to that she had endobronchial disease primarily in the distal left mainstem bronchus. She underwent endobronchial ultrasound bronchoscopy with bronchoscopy. The patient did undergo EBUS transbronchial needle aspiration biopsies. Findings consistent with small cell lung cancer. She also had positive cultures for strep pneumo. She was diagnosed with postobstructive pneumonia. She was started on antibiotics and also given prednisone. She also was placed on 3 3 L of oxygen. Transbronchial biopsy of the left upper lobe: Small cell carcinoma of the lung. FNA of station 7 lymph node: Small cell carcinoma. Bronchial washings were positive for small cell carcinoma. PLAN: To proceed with with the staging workup. Will proceed with a PET scan for initial staging. Get MRI of the brain, since small cell travels frequently to the brain. Will check baseline labs. Will get her chest x-ray to follow-up on the pneumonia. Will make further treatment decisions based upon the staging workup. Will treat with Carboplatin/Etoposide/Atezolizumab, for extensive stage disease. Meanwhile, she was advised to use oxygen 24/7. All her and her 's questions were answered to their satisfaction. She will return in a couple of weeks for a follow-up. Thanks, CC: - Time Spent With Patient Time Spent with Patient (in minutes): 30
[2022-09-20 09:48] LABS: Hemoglobin 12.1 g/dl (12.0-16.0); Mean Corpuscular HGB Conc 32.7 g/dl (31.0-35.0); Mean Corpuscular Hemoglobin 29.7 pg (27.0-33.0); Mean Corpuscular Volume 90.7 fL (80.0-98.0); Mean Platelet Volume 9.5 fL (9.4-12.3); NRBC Pct Auto 0.6 /100WBC (0.0-0.2); Platelet Count 158 X10*3/uL (160-400); Red Blood Count 4.08 X10*6/uL (4.20-5.50); Red Cell Distribution Width 12.7 % (11.0-16.0); White Blood Count 19.4 X10*3/uL (4.8-10.8)
[2022-09-20 10:22] LABS: Alanine Aminotransferase 33 U/L (0-31); Albumin Level 3.5 g/dL (3.5-5.0); Alkaline Phosphatase 155 U/L (39-117); Anion Gap 16 (12-20); Aspartate Amino Transferase 100 U/L (5-31); Blood Urea Nitrogen 22 mg/dL (9-16); Calcium 9.7 mg/dL (8.4-10.2); Carbon Dioxide 27 mmol/L (22-29); Chloride 102 mmol/L (96-108); Creatinine Clr Calc Pharmacy 43.9; Estimated Glomerular Filt Rate > 60; Glucose Random 99 mg/dL (60-115); Potassium 4.3 mmol/L (3.3-5.1); Sodium 141 mmol/L (135-145); Total Protein 6.1 g/dL (6.5-8.0)
[2022-09-20 10:36] LABS: Bilirubin Total 0.4 mg/dL (0.0-1.0); Lactate Dehydrogenase 2045 U/L (122-220)
--- NOTE | 2022-09-20 10:38 | MHC.HEMONC ---
I met with patient following her Consultation with Dr Greene for newly diagnosed lung cancer. She was accompanied by her . Patient is on continuous O2. She has a longstanding history of back pain and is on methadone. She has been seen by Kade Levine and Rosana. EBUS was done, path pending. Dr Greene had labs drawn today and she will be scheduled for PET and brain MRI. She is claustrophobic and so I have requested open MRI be scheduled. Namita has both orders. Pt will be having CXR today and she will f/u with Dr Phillips in [address] Greene is on vacation.
[2022-09-20 10:39] LABS: Band Neutrophils Percent 12 % (3-5); Lymphocytes Absolute Manual 2.3 X10*3/uL (1.2-4.9); Lymphocytes Percent Manual 12 % (20-40); Metamyelocytes Absolute 0.4 X10*3/uL; Metamyelocytes Percent 2 %; Monocytes Absolute Manual 0.2 X10*3/uL (0.1-1.2); Monocytes Percent Manual 1 % (2-11); Myelocytes Absolute 0.6 X10*/uL; Myelocytes Percent 3 %; Neutrophils Absolute Manual 15.9 X10*3/uL (2.0-8.3); Neutrophils Percent Manual 70 % (45-73)
[2022-09-20 10:40] LABS: Platelet Estimate NORMAL (NORMAL); Platelet Morphology Comment NORMAL; RBC Morphology NORMAL
--- NOTE | 2022-09-20 12:10 | MHC.HEMONCMA ---
Pt was in for consult. Clinical summary reviewed and updated, VSS. Labs were drawn. Pt to return in 2 weeks. Pet scan was given to Namita, MRI was placed in [place].
--- NOTE | 2022-09-29 12:15 | HO.HEMONCSCH ---
Appt request info. for open MRI faxed to [facility] in [place]
[2022-10-04 08:48] VITALS: BP 122/70; PULSE 97; RESP 16; TEMP 36.3; O2SAT 97
--- NOTE | 2022-10-04 08:48 | MHC.HEMONC ---
Addendum entered by Anita Quevedo RN 10/04/22 08:50: MRI of brain is at [facility] not PET. Original Note: PET is at open [facility] ([facility]) on 10/11/22 at 11 a.m.
--- NOTE | 2022-10-04 08:54 | MHC.HEMONC ---
Nicole given order for PET.
[2022-10-04 09:06] LABS: Hematocrit 31.5 % (37.0-47.0); Mean Corpuscular HGB Conc 31.7 g/dl (31.0-35.0); Mean Corpuscular Hemoglobin 29.2 pg (27.0-33.0); Mean Corpuscular Volume 92.1 fL (80.0-98.0); Mean Platelet Volume 9.8 fL (9.4-12.3); Red Blood Count 3.42 X10*6/uL (4.20-5.50); Red Cell Distribution Width 13.1 % (11.0-16.0); White Blood Count 11.2 X10*3/uL (4.8-10.8)
[2022-10-04 09:10] LABS: NRBC Pct Auto 3.5 /100WBC (0.0-0.2)
[2022-10-04 09:24] LABS: Alanine Aminotransferase 45 U/L (0-31); Albumin Level 3.2 g/dL (3.5-5.0); Alkaline Phosphatase 185 U/L (39-117); Anion Gap 15 (12-20); Aspartate Amino Transferase 82 U/L (5-31); Bilirubin Total 0.7 mg/dL (0.0-1.0); Blood Urea Nitrogen 23 mg/dL (9-16); Calcium 9.6 mg/dL (8.4-10.2); Carbon Dioxide 31 mmol/L (22-29); Chloride 100 mmol/L (96-108); Creatinine Clr Calc Pharmacy 44.4; Estimated Glomerular Filt Rate > 60; Glucose Random 114 mg/dL (60-115); Lactate Dehydrogenase 1552 U/L (122-220); Potassium 4.5 mmol/L (3.3-5.1); Sodium 141 mmol/L (135-145); Total Protein 5.4 g/dL (6.5-8.0)
--- NOTE | 2022-10-04 09:27 | PM.HEMONCPN ---
Medical Summary - Medical Summary Date of Service: 10/04/22 Chief complaint: Follow-up Medical Summary: DIAGNOSIS: SMALL CELL LUNG CANCER. CT scan of the chest from 09/07/22: Large left upper lobe consolidation/atelectasis most likely secondary to obstructive mass, lesion or debris in the left upper lobe bronchus. There is abnormal left hilar and mediastinal adenopathy. Recommend bronchoscopy for further evaluation. Diffuse emphysema without any underlying metastatic lung nodules. Minimal plate-like atelectasis of the right upper lobe. She has significant mediastinal lymph nodes measuring 3-4 cm in size. In addition to that she had endobronchial disease primarily in the distal left mainstem bronchus. She underwent endobronchial ultrasound bronchoscopy with bronchoscopy. The patient did undergo EBUS transbronchial needle aspiration biopsies. Findings consistent with small cell lung cancer. She also had positive cultures for strep pneumo. The patient has a postobstructive pneumonia. She was started on antibiotics and also given prednisone. Interval History Interval history: Patient is here in follow-up, she is accompanied by her . She continues to gradually decline in overall health although she is able to perform some activities of daily living. She needs help bathing and cooking. She is able to walk short distances. She is using oxygen. Unfortunately, she has not yet had any of her scans. Her appetite remains poor, she is trying to eat. She denies fever, chills, chest pain or hemoptysis. She is chronically short of breath. Review of Systems - Constitutional Reports as per HPI, Reports fatigue, Reports poor appetite, Reports weakness, Reports weight loss - Cardiovascular Reports no additional cardiovascular complaints - Respiratory Reports no additional respiratory complaints - Neurologic Reports no additional neurologic complaints, Reports weakness ON LICENSE OF [facility] Medical History: Medical History (Last Reviewed 10/04/22 @ 08:51 by Ariana Pedroza) Anxiety COPD (chronic obstructive pulmonary disease) COPD (chronic obstructive pulmonary disease) Depression Hip pain, right Nicotine dependence, cigarettes, uncomplicated Osteopenia Onset Date: ~2015 Pneumonia Small cell lung cancer Onset Date: ~2021 Family History: Family History (Last Reviewed 10/04/22 @ 08:51 by Ariana Pedroza) Other No family history of cancer Surgical History: Surgical History (Last Reviewed 10/04/22 @ 08:51 by Ariana Pedroza) H/O tooth extraction History of bronchoscopy History of colonoscopy History of tonsillectomy Social History: Social History (Last Reviewed 10/04/22 @ 08:51 by Ariana Pedroza) Living Situation History: Household Members: Spouse Housing: Other Housing Other:: mobile home Are you a primary respiratory care technician to a significant other at home: No Do you presently have visiting nurse or other home services: No Alcohol History Details: 1. How often do you have a drink containing alcohol?: a. Never Tobacco History: Patient Tobacco Use Status: Current everyday Tobacco Tobacco use type: Cigarette Years Smoked: 50 Substance Use History: Use of substances other than those prescribed or required for medical reasons: No Domestic Abuse History: Have you been hit, kicked, punched, or otherwise hurt by someone within the past year? If so, by whom?: No Do you feel safe in your current relationship?: Yes Homicidal Assessment: Do you have thoughts of harming others: None Do you have a plan to hurt others: No Plan Do you have the means to hurt others: No Nutrition Assessment: Recently lost weight without trying: No Eating poorly because of decreased appetite: Yes Occupation Assessmet: service: No Current occupational status: retired Oncology Screenings - ECOG Performance Status ECOG Performance Status: 2 Home Medications and Allergies Home Medications Medication Instructions Recorded Confirmed Type alprazolam 0.25 mg tablet (Xanax) 0.25 mg PO BID PRN Anxiety 09/09/22 10/04/22 History buspirone 10 mg tablet 10 mg PO DAILY 09/09/22 10/04/22 History clonidine HCl 0.1 mg tablet 0.05 mg PO BID 09/09/22 10/04/22 History fluoxetine 20 mg capsule 20 mg PO BID 09/09/22 10/04/22 History fluticasone 250 mcg-salmeterol 50 1 inh inhalation BID 09/09/22 10/04/22 History mcg/dose blistr powdr for inhalation (Wixela Inhub) methadone 5 mg tablet 5 mg PO DAILY 09/09/22 10/04/22 History albuterol sulfate 2.5 mg/3 mL 1 vial inhalation Q4H PRN 09/12/22 10/04/22 History (0.083 %) solution for nebulization Shortness Of Breath Or Wheezing Oxygen Home Use 09/14/22 10/04/22 History albuterol sulfate 90 mcg/actuation 2 puff inhalation Q6H PRN 09/14/22 10/04/22 History aerosol inhaler (ProAir HFA) Shortness Of Breath Or Wheezing nebulizers 09/14/22 10/04/22 History prochlorperazine maleate 10 mg 10 mg PO DAILY 09/14/22 10/04/22 History tablet Allergies Allergy/AdvReac Type Severity Reaction Status Date / Time Penicillins [PENICILLINS] Allergy Unknown Rash Verified 09/20/22 08:48 bee pollen [bee stings] Allergy Anaphylaxis Verified 09/20/22 08:48 Exam Vital signs: Vital Signs Temp 97.4 F 10/04/22 08:48 Pulse 97 10/04/22 08:48 Resp 16 10/04/22 08:48 BP 122/70 10/04/22 08:48 Pulse Ox 97 10/04/22 08:48 O2 Del Method 10/04/22 08:48 Weight 46.6 kg BMI result Body Mass Index 20.0 - Constitutional Present: moderate distress - Routine HEENT Exam Head: Present: normal inspection, normocephalic - Routine Respiratory Exam Present: decreased breath sounds, prolonged expiratory phase - Routine Cardiovascular Exam Cardiovascular: Present: S1, S2 - Routine Abdominal Exam Present: normal bowel sounds, nontender. Absent: organomegaly - Routine Extremities Exam Present: nontender Data - Labs CBC & Chem 7: 10/04/22 08:42 10/04/22 08:42 Labs: 09/20/22 09:35 Complete Blood Count Man Dif Stat Comprehensive Met. Panel Stat LDH [Lactate Dehydrogenase] Routine 10/04/22 08:42 Comprehensive Met. Panel Routine LDH [Lactate Dehydrogenase] Routine Laboratory Last Values WBC 11.2 X10*3/uL (4.8-10.8) H 10/04/22 08:42 RBC 3.42 X10*6/uL (4.20-5.50) L 10/04/22 08:42 Hgb 10.0 g/dl (12.0-16.0) L 10/04/22 08:42 Hct 31.5 % (37.0-47.0) L 10/04/22 08:42 MCV 92.1 fL (80.0-98.0) 10/04/22 08:42 MCH 29.2 pg (27.0-33.0) 10/04/22 08:42 MCHC 31.7 g/dl (31.0-35.0) 10/04/22 08:42 RDW 13.1 % (11.0-16.0) 10/04/22 08:42 Plt Count 158 X10*3/uL (160-400) L D 09/20/22 09:35 MPV 9.8 fL (9.4-12.3) 10/04/22 08:42 Immature Gran % (Auto) Cancelled 10/04/22 08:42 Neut % (Auto) Cancelled 10/04/22 08:42 Lymph % (Auto) Cancelled 10/04/22 08:42 [place] % (Auto) Cancelled 10/04/22 08:42 Eos % (Auto) Cancelled 10/04/22 08:42 Baso % (Auto) Cancelled 10/04/22 08:42 Lymph # (Auto) Cancelled 10/04/22 08:42 [place] # (Auto) Cancelled 10/04/22 08:42 Eos # (Auto) Cancelled 10/04/22 08:42 Baso # (Auto) Cancelled 10/04/22 08:42 Abs Immat Gran (auto) Cancelled 10/04/22 08:42 Absolute Neuts (auto) Cancelled 10/04/22 08:42 Absolute Nucleated RBC 0.390 X10*3/uL (0.0-0.012) H 10/04/22 08:42 Nucleated RBC % (auto) 3.5 /100WBC (0.0-0.2) H 10/04/22 08:42 Neutrophils % (Manual) 70 % (45-73) 09/20/22 09:35 Band Neutrophils % 12 % (3-5) H 09/20/22 09:35 Lymphocytes % (Manual) 12 % (20-40) L 09/20/22 09:35 Monocytes % (Manual) 1 % (2-11) L 09/20/22 09:35 Metamyelocytes % 2 % 09/20/22 09:35 Myelocytes % 3 % 09/20/22 09:35 Abs Neuts (Manual) 15.9 X10*3/uL (2.0-8.3) H 09/20/22 09:35 Lymphocytes # (Manual) 2.3 X10*3/uL (1.2-4.9) 09/20/22 09:35 Monocytes # (Manual) 0.2 X10*3/uL (0.1-1.2) 09/20/22 09:35 Metamyelocytes # 0.4 X10*3/uL 09/20/22 09:35 Myelocytes # 0.6 X10*/uL 09/20/22 09:35 Platelet Estimate NORMAL (NORMAL) 09/20/22 09:35 Plt Morphology Comment NORMAL 09/20/22 09:35 RBC Morphology NORMAL 09/20/22 09:35 Sodium 141 mmol/L (135-145) 10/04/22 08:42 Potassium 4.5 mmol/L (3.3-5.1) 10/04/22 08:42 Chloride 100 mmol/L (96-108) 10/04/22 08:42 Carbon Dioxide 31 mmol/L (22-29) H 10/04/22 08:42 Anion Gap 15 (12-20) 10/04/22 08:42 BUN 23 mg/dL (9-16) H 10/04/22 08:42 Creatinine 0.87 mg/dL (0.5-1.4) 10/04/22 08:42 Estim Creat Clear Calc 44.4 10/04/22 08:42 Estimated GFR > 60 10/04/22 08:42 Random Glucose 114 mg/dL (60-115) 10/04/22 08:42 Calcium 9.6 mg/dL (8.4-10.2) 10/04/22 08:42 Total Bilirubin 0.7 mg/dL (0.0-1.0) 10/04/22 08:42 AST 82 U/L (5-31) H 10/04/22 08:42 ALT 45 U/L (0-31) H 10/04/22 08:42 Alkaline Phosphatase 185 U/L (39-117) H 10/04/22 08:42 Lactate Dehydrogenase 1552 U/L (122-220) H 10/04/22 08:42 Total Protein 5.4 g/dL (6.5-8.0) L 10/04/22 08:42 Albumin 3.2 g/dL (3.5-5.0) L 10/04/22 08:42 Assessment and Plan Patient Active problem list reviewed?: Yes (1) Small cell lung cancer Status: Acute Assessment and plan: This is a pleasant 67-year-old lady with probable extensive stage small cell carcinoma of the lung. Transbronchial biopsy of the left upper lobe: Small cell carcinoma of the lung. FNA of station 7 lymph node:Small cell carcinoma. Bronchial washings were positive for small cell carcinoma. She has extensive involvement of mediastinal lymph nodes. She had staging MRI and PET scan ordered but could not be performed yet. She has a waiting for insurance prior authorization for PET-CT and brain MRI has been scheduled for next week, she needs open MRI. LDH is quite elevated. I discussed chemotherapy which is the primary treatment of small cell lung cancer. For extensive stage disease, combination chemotherapy with carboplatin, etoposide and atezolizumab was discussed. Possible side effects such as hair loss, gastrointestinal side effects cytopenias and risk of infection were discussed. When patient heard about hair loss, she began to say that she would absolutely not receive any chemotherapy that would cause hair loss. She will discuss this with Dr. Greene next week. In the meantime, I have ordered CT abdomen/ pelvis with contrast urgently for this week since PET-CT has not been approved yet. - Time Spent With Patient Time Spent with Patient (in minutes): 25
[2022-10-04 09:36] LABS: Band Neutrophils Percent 5 % (3-5); Lymphocytes Absolute Manual 2.8 X10*3/uL (1.2-4.9); Lymphocytes Percent Manual 25 % (20-40); Monocytes Absolute Manual 0.2 X10*3/uL (0.1-1.2); Monocytes Percent Manual 2 % (2-11); Neutrophils Absolute Manual 8.2 X10*3/uL (2.0-8.3); Neutrophils Percent Manual 68 % (45-73)
[2022-10-04 09:37] LABS: Nucleated Red Blood Cells 3 /100WBC (0-0)
[2022-10-04 09:38] LABS: RBC Morphology NOTED
[2022-10-04 09:39] LABS: Hypochromasia 1+ (5-14) /OIF; Ovalocytes 1+ (5-14) /OIF
[2022-10-04 09:41] LABS: Platelet Estimate DECREASED (NORMAL); Platelet Morphology Comment NORMAL
[2022-10-04 09:42] LABS: Platelet Count 83 X10*3/uL (160-400)
--- NOTE | 2022-10-04 10:39 | MHC.HEMONCMA ---
patient seen today for small cell ca of lung, VSS, labs, ct ab/pelvis with con ordered and stat, doing auth phillip, follow up TBD.
--- NOTE | 2022-10-04 11:59 | MHC.HEMONCMA ---
Entered stat ct abd/pelvis with con in [place] and porsche to auth.
--- NOTE | 2022-10-04 13:31 | HO.HEMONCPA ---
RECEIVED STAT PA ORDER FROM ANNIA FOR ([id number]) CT ABDOMEN PELVIS W/IV CON .PA HAS BEEN APPROVED CASE#[id number] AUTH#[id number] DOS-10/04/22 TO 12/03/22 . I NOTIFIED ANNIA AND MORGAN OF THIS PA WELL .
--- NOTE | 2022-10-04 13:36 | HO.HEMONCPA ---
PA FOR PET CT IS REQUIRED (41545) PA HAS BEEN APPROVED . AUTH#[id number] DOS -10/04/22 TO 12/03/22 REP NAME : JIM Sanches
--- NOTE | 2022-10-04 13:46 | MHC.HEMONC ---
I met with patient and her following appt with Dr Phillips (covering Dr Greene). Patient is still awaiting appt for PET. Has MRI on 10/11 at [facility] ([facility]). Nicole got auth for PET and this will be scheduled. I attempted to do education on Atezolizumab, Carboplatin, Etoposide per Dr Phillips based on the fact we know what her path is but patient was adamant she does not want chemo if it causes hair loss. Her was upset saying so you want to ? . I informed her about places to get wigs and that this was the treatment for small cell and that it was a very aggressive cancer and that we really need to start lauren to give her the best chances of controlling her cancer. She said no . I did review the medications and plan and told her to call me today after she talked with her at home. Later in the afternoon her left message saying she said yes to the treatment and to book it. Whe I asked to speak to her, she said no - I do not want it . I told her it is her decision and she appears to understand all of the implications. I also advised there would be a whole process that would have to ensue for any legal changes to her competency. They will call back with decision. I have informed Dr Phillips.
--- NOTE | 2022-10-04 14:44 | MHC.HEMONCMA ---
informed patient and of ct abd/pelvis with con for 10/05/22 at 2:30 but arrive at 12:15 to register, drink contrast at 12:30, nothing to eat or drink after 11am. they are both in agreement.
--- NOTE | 2022-10-05 08:07 | HO.HEMONCPA ---
SENT CLINICAL INFORMATION TO [facility] , AWAITING APPT DATE & TIME.
--- NOTE | 2022-10-05 15:21 | MHC.HEMONCMA ---
Ct Dept called office to let us know that patient arrived for CT abd/pelvis and drank 1 contrast dye and left, did not want to stay for duration of testing.
--- NOTE | 2022-10-11 13:16 | MHC.HEMONC ---
I gave Namita information for PA. Pt is to start c1d1 Atezolizumab/Carbo/Etoposide on Monday10/17/22. Pt is aware of 9 am appt.
--- NOTE | 2022-10-12 14:43 | HO.HEMONCPA ---
NO PA REQUIRED FOR CARBOPLATIN,ETOPOSIDE & EMEND PER [facility] CS REP CRYSTAL.M. CALL REF #[id number] ON 10/12/22 at 2:47pm EST. PA FOR Atezolizumab APPROVED FOR 9 visits. AUTH#[id number]. DOS 10/17/22 to 04/14/2023 PA FOR NEULASTA APPROVED FOR 6 VISITS. AUTH# [id number]. DOS -10/17/22 to 02/13/23 ALL DOCUMENTS SCANNED IN THE CHART.
--- NOTE | 2022-10-12 17:08 | MHC.HEMONC ---
Nurse took t/c from Sharifa at [facility], to report a critical MRI result of intracranial bleed from pt's MRI performed yesterday, on 10/11/22. Nurse requested copy of report by fax, showed to covering provider Dr. Phillips, who said no immediate intervention needed at this time, but to have pt book appt to meet w/ Dr. Jc HARRIS tomorrow morning, also to have pt hold any ASA or blood thinners. Nurse called pt, spoke w/ she and her , confirmed they understood not to take any aspirin, and pt does not take any blood thinners. Nurse rescheduled pt's Oncology appt to be tomorrow morning, 10/13/22 at 09:30. Nurse left copy of MRI report for scanning.
[2022-10-13 09:45] VITALS: BP 160/80; PULSE 121; RESP 14; TEMP 36.6; O2SAT 96; BMI 18.8
[2022-10-13 10:44] LABS: Hematocrit 26.2 % (37.0-47.0); Hemoglobin 8.6 g/dl (12.0-16.0); Mean Corpuscular HGB Conc 32.8 g/dl (31.0-35.0); Mean Corpuscular Hemoglobin 29.4 pg (27.0-33.0); Mean Corpuscular Volume 89.4 fL (80.0-98.0); Mean Platelet Volume 9.7 fL (9.4-12.3); Red Blood Count 2.93 X10*6/uL (4.20-5.50); Red Cell Distribution Width 13.6 % (11.0-16.0); White Blood Count 12.7 X10*3/uL (4.8-10.8)
[2022-10-13 10:47] LABS: NRBC Pct Auto 3.2 /100WBC (0.0-0.2); Platelet Count 62 X10*3/uL (160-400)
[2022-10-13 11:06] LABS: Alanine Aminotransferase 81 U/L (0-31); Albumin Level 3.6 g/dL (3.5-5.0); Alkaline Phosphatase 158 U/L (39-117); Anion Gap 15 (12-20); Aspartate Amino Transferase 166 U/L (5-31); Bilirubin Total 1.1 mg/dL (0.0-1.0); Blood Urea Nitrogen 24 mg/dL (9-16); Calcium 9.1 mg/dL (8.4-10.2); Carbon Dioxide 31 mmol/L (22-29); Chloride 103 mmol/L (96-108); Creatinine Clr Calc Pharmacy 44.7; Estimated Glomerular Filt Rate > 60; Glucose Random 105 mg/dL (60-115); Potassium 3.6 mmol/L (3.3-5.1); Sodium 145 mmol/L (135-145); Total Protein 5.6 g/dL (6.5-8.0)
[2022-10-13 11:11] LABS: Band Neutrophils Percent 10 % (3-5); Lymphocytes Absolute Manual 2.8 X10*3/uL (1.2-4.9); Lymphocytes Percent Manual 22 % (20-40); Monocytes Absolute Manual 0.4 X10*3/uL (0.1-1.2); Monocytes Percent Manual 3 % (2-11); Neutrophils Absolute Manual 9.5 X10*3/uL (2.0-8.3); Neutrophils Percent Manual 65 % (45-73); Nucleated Red Blood Cells 3 /100WBC (0-0)
[2022-10-13 11:18] LABS: Acanthocytes 1+ (0-2) /OIF; Ovalocytes 1+ (5-14) /OIF; Platelet Estimate DECREASED (NORMAL); Platelet Morphology Comment NORMAL; RBC Morphology NOTED; Schistocytes 1+ (0-2) /OIF
[2022-10-13 11:19] LABS: Basophilic Stippling 1+ (0-2) /OIF; Macrocytosis 1+ (5-14) /OIF; Polychromasia 1+ (0-2) /OIF
--- NOTE | 2022-10-13 11:55 | HE.ONCSEC ---
PATIENT IS SCHEDULED FOR PET CT 10/18/22 AT 9:15AM
--- NOTE | 2022-10-13 14:51 | HO.HEMONCPA ---
JUST RECIEVED A STAT MRI ORDER FROM ANNIA THE [facility] , I CALLED PTS INSURANCE AND OBTAINED PA . PA HAS BEEN APPROVED [facility]#[id number] DOS-10/13/22 TO 12/12/22 REFERENCE-GREGORIO Sanches REF#[id number] . I WILL NOTIFY ANNIA OF THE APPROVAL .
--- NOTE | 2022-10-13 14:58 | HO.HEMONCPA ---
I PUT INFORMATION IN ORDER HISTOPATHOLOGY TECHNICIAN , ANNIA WILL CALL MRI
--- NOTE | 2022-10-13 15:21 | MHC.HEMONC ---
Pt called and notified of date of first chemotherapy treatment on 10/19/22
--- NOTE | 2022-10-13 15:27 | MHC.HEMONCMA ---
Pt was in for follow up. Clinical summary reviewed and updated, VSS. Labs were drawn. Pt to return in 1 week.
[2022-10-13 20:03] LABS: Lactate Dehydrogenase 1813 U/L (122-220)
[2022-10-14 09:08] LABS: HBc Num1 0.42 S/CO (0.00-0.79); HBsAGNum1 0.29 S/CO (0.00-0.99); Hepatitis B Core Antibody Nonreactive (Nonreactive); Hepatitis B Surface Antigen Negative (Negative); ~Hepatitis B Surface Antibody NONREACTIVE (Nonreactive)
--- NOTE | 2022-10-14 09:53 | HO.HEMONCPA ---
TRIPP GAMINO APPROVED for 6 DOSES. AUTH# [id number]. DOS- 10/17/22 to 02/13/2023. DOCUMENT SCANNED IN THE CHART.
--- NOTE | 2022-10-17 11:37 | HO.HEMONCPA ---
JUST RECIEVED FAX FROM [facility] PT CANCELLED PET CT
--- NOTE | 2022-10-17 14:41 | MHC.HEMONC ---
PET will be calling pt with time for tomorrow as I spoke with her and she is willing to have it. She does seem confused as to what is going on. I repeated the plan to her.
[2022-10-18 08:54] LABS: Carbohydrate Antigen 19-9 22 U/mL (<34)
--- NOTE | 2022-10-19 11:30 | MHC.HEMONC ---
Pt called to say that pt was unable to come for treatment today because he couldn't get her going . I inquired further and it sounds like she is confused (I could hear her in the background). They were yelling back and forth. She said she wanted chemo but tomorrow. I explained it is a three day treatment. According to her , she is not really presenting new symptoms but her legs are weak. She said her stomach hurt. She is eating. I advised that she could come in late today but must be before 10 am. He said he would try to bring her. I re-called him at 11 am and he said she's not coming but will come for 1 pm tomorrow. I scheduled pt f/u with Dr Greene at 10:30 and canceled chemo for today, and Monday. It does not appear that the patient wants or could tolerate treatment and they do need help in the home. Will discuss with Dr Greene tomorrow and see what we could do to help the patient. Her is aware that he could have her transported to ER if her condition changes.
== END 2022-10-25 | disposition home or self-care (01) ==
LOC: HO.ONC 09:40
PROVIDERS: PCP Internal Medicine; Referring Provider Hospitalist; Visit Provider Internal Medicine Medical Oncology
DX: C34.12 Malignant neoplasm of upper lobe, left bronchus or lung (principal); C77.9 Secondary and unspecified malignant neoplasm of lymph node, unspecified; K86.89 Other specified diseases of pancreas; J44.9 Chronic obstructive pulmonary disease, unspecified; F17.210 Nicotine dependence, cigarettes, uncomplicated; Z99.81 Dependence on supplemental oxygen
CPT/HCPCS: 36415; 80053; 83615; 85007; 85027; 86301; 86704; 86706; 87340; 99204; 99215

== ENCOUNTER 2022-10-14 08:00 | Outpatient (REF) | payer MEDICARE, SELFPAY ==
--- NOTE | ~2022-10-14 | MR_ITS ---
EXAMINATION: MR ABDOMEN WITHOUT AND WITH CONTRAST CLINICAL INFORMATION: Pancreatic head mass seen on the CT of the abdomen. COMPARISON: CT from 10/06/2022 TECHNIQUE: MR abdomen was performed without and with use of 5 mL intravenous Gadavist gadolinium contrast. Postcontrast images are performed in multiphase dynamic sequences. Imaging was performed in 3 planes. FINDINGS: Motion limited examination. LUNG BASES: The visualized lung bases are unremarkable. LIVER, GALLBLADDER, AND BILIARY TREE: The liver is normal in size, smooth in contour, and normal in signal. No biliary ductal dilatation. There are 2 T2 bright lesion posteriorly in the right lobe of the liver measuring up to 0.8 cm. These are non the [id number] of the postcontrast imaging, as this was a pancreatic protocol study. These are not seen on the previous CT.. The gallbladder is unremarkable with no evidence of gallbladder wall thickening, or obvious pericholecystic inflammatory changes. PANCREAS: The pancreatic parenchyma is somewhat atrophic. The MRCP sequence is suboptimal due to motion. There is a T2 bright 1.1 cm lesion in the region of the pancreatic neck. No pancreatic ductal dilatation. No additional pancreatic lesion identified. SPLEEN: Normal. ADRENAL GLANDS: Normal. KIDNEYS AND URETERS: The kidneys are normal in size, shape, and enhance symmetrically. No hydronephrosis. No perinephric stranding. GASTROINTESTINAL TRACT: No bowel obstruction. No ascites or fluid collection. ABDOMINAL WALL: No significant hernia is appreciated. LYMPH NODES: No lymphadenopathy. VASCULAR: Unremarkable. OSSEOUS STRUCTURES: Marrow signal normal. Degenerative change throughout the spine. MR/MR abdomen wo/w con IMPRESSION: 1. Motion limited examination. 2. T2 bright 1.1 cm lesion in the region of the pancreatic neck. No pancreatic ductal dilatation. This may represent a small cyst or side branch IPMN. This likely corresponds to the finding on prior CT. Given the limitations of this study, consider follow-up pancreatic protocol CT in 6-12 months. 3. Two T2 bright lesion in the right lobe of the liver measuring up to 0.8 cm. These are non the [id number] of the postcontrast imaging, as this was a pancreatic protocol study. These are not seen on the previous CT. It is possible these are artifactual given the limitations of this study. Attention can be given on follow-up.
== END 2022-10-14 08:01 | disposition home or self-care (01) ==
LOC: HO.MRI 08:00
PROVIDERS: Visit Provider Internal Medicine Medical Oncology
DX: K86.89 Other specified diseases of pancreas (principal)
CPT/HCPCS: 74183; A9585

== ENCOUNTER → 2022-10-17 10:29 | Outpatient (BNVA) | payer MEDICARE, SELFPAY | PROVIDERS: PCP Internal Medicine; Visit Provider Hospitalist | DX: J96.20 Acute and chronic respiratory failure, unspecified whether with hypoxia or hypercapnia (principal); C34.90 Malignant neoplasm of unspecified part of unspecified bronchus or lung; J18.9 Pneumonia, unspecified organism; J44.9 Chronic obstructive pulmonary disease, unspecified; J98.11 Atelectasis; R59.0 Localized enlarged lymph nodes; F17.210 Nicotine dependence, cigarettes, uncomplicated | CPT/HCPCS: 99212 ==

== ENCOUNTER 2022-10-19 22:09 | Inpatient (IN) | payer MEDICARE, SELFPAY ==
--- NOTE | ~2022-10-19 | XR_ITS ---
EXAMINATION: XR CHEST CLINICAL INFORMATION: Shortness of breath. Small cell lung cancer. COMPARISON: Chest x-ray 09/20/2022 TECHNIQUE: Frontal view of the chest was obtained. FINDINGS: Interval development of complete opacification of the left hemithorax. There is significant volume loss left hemithorax with leftward mediastinal and tracheal shift and some suspected elevation left hemidiaphragm. The right lung is mildly hyperexpanded and appears clear. Limited assessment of the cardiomediastinal silhouette. No evidence of pulmonary edema in the right lung. No acute osseous injury identified. XR/XR chest 1V IMPRESSION: 1. Interval complete opacification left hemithorax with significant volume loss suggesting a large component of atelectasis. The patient's left hilar lung mass as well as the mediastinum are obscured. 2. Cannot exclude superimposed postobstructive pneumonia or component of pleural fluid.
--- NOTE | ~2022-10-19 | CT_ITS ---
EXAMINATION: CT ANGIOGRAM OF THE CHEST WITH AND WITHOUT CONTRAST (CT PULMONARY ANGIOGRAM FOR PE) CLINICAL INFORMATION: Reason for Exam hypoxic COMPARISON: 09/07/2022. Chest radiograph from 23 TECHNIQUE: Prior to contrast administration, noncontrast localization images were obtained. Subsequently, multidetector volumetric imaging was performed from the thoracic inlet to below the diaphragms following the administration of 65 mL Omnipaque 350 intravenous contrast. No contrast reaction reported Sagittal, coronal, and MIP oblique sagittal reformatted images were obtained on the CT workstation, uploaded to PACS, and reviewed. This CT examination was performed using dose optimization techniques as appropriate, variously including the following: *Automated exposure control *Adjustment of mA and/or kV according to patient size (this includes techniques or standardized protocols for targeted exams where dose is matched to indication/reason for exam; i.e. extremities or head) *Use of iterative reconstruction technique Total exam dose-length product 166 mGy-cm FINDINGS: QUALITY OF STUDY/CONTRAST BOLUS: Satisfactory. PULMONARY ARTERIES: No central or segmental pulmonary emboli. THORACIC AORTA: No aneurysm or dissection. LUNG: Left mainstem bronchus occlusion. This is progressive from 09/07/2022. Complete collapse of the left lung with small associated pleural effusion. There is severe emphysema throughout the right lung. Dependent atelectasis along the fissure. No right-sided nodule identified. No pneumothorax. MEDIASTINUM: Normal heart size. No pericardial effusion. Leftward shift of the mediastinum due to the volume loss. Prominent mediastinal lymph nodes. For instance there is an AP window node measuring 1.1 cm. Precarinal node measures 1.7 cm. Subcarinal node measures 2.6 cm . This lymphadenopathy is increased from previous.. No evidence of septal bowing or right heart strain. CORONARY ARTERY CALCIFICATION: None visualized on this study. CHEST WALL/AXILLA: No axillary or internal mammary lymphadenopathy. OSSEOUS STRUCTURES: No acute or suspicious osseous abnormality. Degenerative changes throughout the spine. UPPER ABDOMEN: Unremarkable. No reflux of contrast into the hepatic veins to suggest elevated right heart pressures. CT/CT angio chest PE protocol IMPRESSION: 1. No pulmonary embolism. 2. Complete collapse of the left lung. Left mainstem bronchus occlusion. This is progressive from 09/07/2022. Underlying mass cannot be evaluated with this appearance. 3. Mediastinal lymphadenopathy, increased from previous, consistent with metastatic disease. VTE: negative
--- NOTE | ~2022-10-19 | CT_ITS ---
EXAMINATION: CT HEAD WITHOUT CONTRAST CLINICAL INFORMATION: Altered mental status. History of small cell lung cancer. COMPARISON: None. TECHNIQUE: Contiguous axial imaging was performed from the skull base to vertex without intravenous contrast. This CT examination was performed using dose optimization techniques as appropriate, variously including the following: * Automated exposure control * Adjustment of mA and/or kV according to patient size (this includes techniques or standardized protocols for targeted exams where dose is matched to indication/reason for exam; i.e. extremities or head) Use of iterative reconstruction technique DLP: 608 mGy-cm. FINDINGS: There is no evidence of acute intracranial hemorrhage or territorial infarction. No abnormal mass effect or midline shift is seen. Chavez to white matter differentiation is well preserved. No extra-axial fluid collections are identified. No hydrocephalus. No significant volume loss. There is no abnormal attenuation within the brain parenchyma. The osseous structures and soft tissues are normal. The mastoid air cells and visualized portions of the paranasal sinuses are well aerated. CT/CT head/brain wo IV con IMPRESSION: No acute intracranial pathology.
[2022-10-19 22:21] VITALS: BP 117/82; BP 119/81; PULSE 98; RESP 12; TEMP 36.8; O2SAT 94; O2SAT 95; BMI 18.8
--- NOTE | 2022-10-19 22:24 | ECG_ITS ---
Test Reason : AMS Blood Pressure : / mmHG Vent. Rate : 089 BPM Atrial Rate : 089 BPM P-R Int : 108 ms QRS Dur : 064 ms QT Int : 340 ms P-R-T Axes : 069 016 083 degrees QTc Int : 413 ms Sinus rhythm with short DE Nonspecific T wave abnormality Abnormal ECG No previous ECGs available Referred By: Eli Cruz Electronically Signed By:Wally Martins
[2022-10-19] MEDS: Albuterol Sulfate (0.083%) 2.5 MG/3 ML VIAL.NEB 5 MG INHALE (22:43)
--- NOTE | 2022-10-19 22:44 | PC.NURSE ---
Patient is alert and oriented x1. Does not appear to be in pain. Patient skin is dry and warm. Pt is sleeping peacefully with the call seymour in reach. Safety maintained.
[2022-10-19 22:48] VITALS: PULSE 95; RESP 12; O2SAT 95
[2022-10-19 23:05] LABS: MANUAL DIFF FLAG NO
[2022-10-19 23:07] LABS: Basophils Absolute Auto 0.1 X10*3/uL (0.0-0.2); Basophils Percent Auto 0.5 % (0-2); Eosinophils Percent Auto 0.2 % (0-4); Hematocrit 24.7 % (37.0-47.0); Hemoglobin 7.9 g/dl (12.0-16.0); Imm Gran Abs Auto 0.45 X10*3/uL (0.00-0.03); Imm Gran Pct Auto 4.6 % (0.0-0.4); Lymphocytes Absolute Auto 2.2 X10*3/uL (1.2-4.9); Lymphocytes Percent Auto 22.6 % (20-40); Mean Corpuscular Hemoglobin 28.9 pg (27.0-33.0); Mean Corpuscular Volume 90.5 fL (80.0-98.0); Mean Platelet Volume 10.7 fL (9.4-12.3); Monocytes Absolute Auto 0.8 X10*3/uL (0.1-1.2); Monocytes Percent Auto 8.4 % (2-11); NRBC Pct Auto 2.5 /100WBC (0.0-0.2); Neutrophils Absolute Auto 6.2 x10*3/uL (2.0-8.3); Neutrophils Percent Auto 63.7 % (45-73); Red Blood Count 2.73 X10*6/uL (4.20-5.50); Red Cell Distribution Width 14.6 % (11.0-16.0); White Blood Count 9.7 X10*3/uL (4.8-10.8)
[2022-10-19 23:08] LABS: Platelet Count 39 X10*3/uL (160-400)
[2022-10-19 23:12] LABS: INTERNATIONAL NORM RATIO 1.4 (0.9-1.1); Prothrombin Time 16.7 SEC (10.0-13.1)
[2022-10-19 23:15] LABS: VBG Base Excess 19.1 mmol/L; VBG HCO3 43 mmol/L (22-26); VBG pCO2 52 mmHg; VBG pH 7.53 (7.32-7.43); VBG pO2 47 mmHg
[2022-10-19 23:17] LABS: Ammonia 47 umol/L (13-55)
[2022-10-19 23:24] LABS: Alanine Aminotransferase 98 U/L (0-31); Albumin Level 3.4 g/dL (3.5-5.0); Alkaline Phosphatase 166 U/L (39-117); Anion Gap 13 (12-20); Aspartate Amino Transferase 177 U/L (5-31); Bilirubin Direct 1.3 mg/dL (0.0-0.5); Bilirubin Total 2.2 mg/dL (0.0-1.0); Blood Urea Nitrogen 31 mg/dL (9-16); Calcium 9.2 mg/dL (8.4-10.2); Carbon Dioxide 36 mmol/L (22-29); Chloride 101 mmol/L (96-108); Creatinine Clr Calc Pharmacy 48.8; Estimated Glomerular Filt Rate > 60; Glucose Random 175 mg/dL (60-115); Magnesium 2.6 mg/dL (1.6-2.6); Potassium 3.1 mmol/L (3.3-5.1); Sodium 147 mmol/L (135-145); Total Protein 5.5 g/dL (6.5-8.0)
--- NOTE | 2022-10-19 23:24 | ED_ITS ---
HPI - General Adult General Chief complaint: Altered Mental Status Stated complaint: AMS Time Seen by Provider: 10/19/22 22:14 Source: patient and EMS Mode of arrival: EMS Limitations: altered mental status ([id number]) History of Present Illness HPI narrative: Patient comes to the emergency room via EMS from home. EMS reports that the patient's called because the patient has been a bit altered for the last 4 days. EMS reports that when they arrived to the [facility] resident, she was hypoxic, in the low 70s. However, EMS explains that patient is supposed to be on 4 L and she was on room air. Patient had an appointment with her full decator operator, Dr. Levine, 2 days ago. Patient was recently diagnosed with small cell lung cancer, patient is to start chemotherapy next week. Patient has an appointment with Oncology in 2 days. Also, patient was noted to be hypoxic in the clinic, patient was started on oxygen at 3 L. Patient was also diagnosed with postobstructive pneumonia, started on p.o. antibiotics and steroids. Dr. Levine asked the patient to come to the emergency room for admission to the hospital but patient declined. Over last 2 days, seems that she has been getting more confused and short of breath. When patient arrived to emergency room, she was on 3 L saturating 85%, oxygen was increased to 5 L, saturating in the low 90s. Related Data Home Medications Medication Instructions Recorded Confirmed alprazolam 0.25 mg tablet (Xanax) 0.25 mg PO BID PRN Anxiety 09/09/22 10/13/22 buspirone 10 mg tablet 10 mg PO DAILY 09/09/22 10/13/22 clonidine HCl 0.1 mg tablet 0.05 mg PO BID 09/09/22 10/13/22 fluoxetine 20 mg capsule 20 mg PO BID 09/09/22 10/13/22 fluticasone 250 mcg-salmeterol 50 1 inh inhalation BID 09/09/22 10/13/22 mcg/dose blistr powdr for inhalation (Wixela Inhub) methadone 5 mg tablet 5 mg PO DAILY 09/09/22 10/13/22 albuterol sulfate 2.5 mg/3 mL 1 vial inhalation Q4H PRN 09/12/22 10/13/22 (0.083 %) solution for nebulization Shortness Of Breath Or Wheezing Oxygen Home Use 09/14/22 10/13/22 albuterol sulfate 90 mcg/actuation 2 puff inhalation Q6H PRN 09/14/22 10/13/22 aerosol inhaler (ProAir HFA) Shortness Of Breath Or Wheezing nebulizers 09/14/22 10/13/22 prochlorperazine maleate 10 mg 10 mg PO DAILY 09/14/22 10/13/22 tablet Previous Rx's Medication Instructions Recorded doxycycline monohydrate 100 mg 100 mg PO BID 14 days #28 tabs 09/14/22 tablet dexamethasone 4 mg tablet 4 mg PO BID #60 tabs 10/13/22 ondansetron 8 mg disintegrating 8 mg PO Q8H PRN Nausea And 10/13/22 tablet Vomiting #50 tabs Allergies Allergy/AdvReac Type Severity Reaction Status Date / Time Penicillins [PENICILLINS] Allergy Unknown Rash Verified 10/17/22 10:39 bee pollen [bee stings] Allergy Anaphylaxis Verified 10/17/22 10:39 Review of Systems Review of Systems: Constitutional : No Weight loss, No Fever, No Chills, No Night Sweats, complaining of feeling very weak ENT/Mouth : No Hearing loss, No Ear Pain, No Nasal Congestion, No Sinus Pain, No Hoarseness, No sore throat, No Rhinorrhea, No Swallowing Difficulty Eyes: No Eye Pain, No Swelling, No Redness, No Foreign Body, No Discharge, No Vision Changes Cardiovascular : No Chest Pain, chronic dyspnea on exertion, no orthopnea, no palpitations Respiratory : No Cough, No Sputum, No Wheezing, No Smoke Exposure, complaining of feeling more short of breath than usual Gastrointestinal : No Nausea, No Vomiting, No Diarrhea, No Constipation, No abdominal Pain, No Hematochezia, No Melena Genitourinary : no irregular bleeding, No Dysuria, No Urinary Frequency, No Hematuria, No Urinary Incontinence, No Urgency, No Flank Pain, No Urinary Flow Changes, No Hesitancy Musculoskeletal : No joint pain, No Myalgias, No Joint Swelling Skin : No Skin Lesions, No rash Neuro : No Weakness, No Numbness, No Paresthesias, No Loss of Consciousness, No Dizziness, No Headache Psych : No Anxiety/Panic, No Depression, No SI/HI/AH/VH, No Social Issues, Heme/Lymph: No Bruising, No Bleeding,No Lymphadenopathy Endocrine : No Polyuria, No Polydipsia, No Temperature Intolerance [facility] Past Medical History Medical History Anxiety COPD (chronic obstructive pulmonary disease) COPD (chronic obstructive pulmonary disease) Depression Hip pain, right Nicotine dependence, cigarettes, uncomplicated Osteopenia (~2015) Pneumonia Small cell lung cancer (~2021) Surgical History H/O tooth extraction History of bronchoscopy History of colonoscopy History of tonsillectomy Family History Family History Other No family history of cancer Social History Social History Household Members: Spouse Housing: Other Housing Other:: mobile home Are you a primary care center manager to a significant other at home: No Do you presently have visiting nurse or other home services: No Patient Tobacco Use Status: Current everyday Tobacco user Tobacco use type: Cigarette Years Smoked: 50 Advance Directives: No service: No Current occupational status: retired Physical Exam ED Vital Signs: Vital Signs - 24 hr 10/19/22 22:21 10/19/22 22:48 10/20/22 01:29 Temperature 98.2 F Pulse Rate 98 95 115 H Respiratory Rate 12 12 20 Blood Pressure 119/81 130/82 Pulse Oximetry 95 45 L Oxygen Delivery Method Nasal Cannula High Flow Nasal Cannula Oxygen Flow Rate 60 Fraction of Inspired Oxygen 10/20/22 01:28 10/20/22 02:57 10/20/22 03:34 Temperature 98.8 F Pulse Rate 115 H 95 Respiratory Rate 24 H 123 H 22 H Blood Pressure 130/82 Pulse Oximetry 94 97 Oxygen Delivery Method High Flow Nasal Cannula Nasal Cannula Oxygen Flow Rate 60 Fraction of Inspired Oxygen 10/20/22 05:28 10/20/22 04:51 10/20/22 02:13 Temperature Pulse Rate 113 H 110 H 96 Respiratory Rate 16 23 H 20 Blood Pressure 124/67 139/79 122/80 Pulse Oximetry 93 90 L 93 Oxygen Delivery Method High Flow Nasal Cannula High Flow Nasal Cannula High Flow Nasal Cannula Oxygen Flow Rate 60 60 60 Fraction of Inspired Oxygen 45 45 10/20/22 02:57 10/20/22 03:13 10/20/22 03:28 Temperature Pulse Rate 95 86 96 Respiratory Rate 18 15 18 Blood Pressure 139/80 129/75 133/66 Pulse Oximetry 95 96 96 Oxygen Delivery Method High Flow Nasal Cannula High Flow Nasal Cannula High Flow Nasal Cannula Oxygen Flow Rate 60 60 60 Fraction of Inspired Oxygen 10/20/22 05:55 10/20/22 06:09 10/20/22 06:15 Temperature 98.8 F 98.9 F 98.8 F Pulse Rate 114 H 104 H 118 H Respiratory Rate 20 16 18 Blood Pressure 131/84 138/85 142/85 H Pulse Oximetry 95 Oxygen Delivery Method High Flow Nasal Cannula Oxygen Flow Rate 60 Fraction of Inspired Oxygen 45 10/20/22 06:18 Temperature Pulse Rate Respiratory Rate 16 Blood Pressure Pulse Oximetry Oxygen Delivery Method Oxygen Flow Rate Fraction of Inspired Oxygen BMI result Body Mass Index 18.8 Const Other: Appearance: Alert. Oriented X2, ill-appearing, cachectic Eyes: Pupils equal, round and reactive to light. ENT: Pharynx normal. Dry oropharynx Neck: Normal inspection. Neck supple. No lymph nodes noted. No crepitus CVS: Normal heart rate and rhythm. Pulses normal. Normal S1 and S2 Respiratory: Patient's oxygen saturation 85% on 2 L, increased to 5 L to oxygen jes at 92%. There were no breath sounds audible on the left side Abdomen: Soft and nontender. No rigidity. No distention. Skin: Skin warm and dry. Normal skin color. Normal skin turgor. Extremities: No lower extremity edema. No Lacerations. No Rash Neuro: Oriented X 3. No motor deficit. No sensory deficit. Moving all extremities. No slurred speech. CN 2 through 12 grossly intact Psych: calm, cooperative, normal affect Course Course Course Narrative: Patient is ill-appearing, Reviewing patient's medical records from pneumonia allergy from her appointment 2 days ago, given the size of the mass and the lung collapse, it is very difficult to assess if patient has postobstructive pneumonia. Patient treated empirically Patient is being giving IV fluids, Zosyn. All Of patient's labs and imaging pending I was informed by the patient's nurse at 03:37 that the antibiotic had not be given because patient has across reaction to penicillins. This order was entered at 22:30. Medications Administered Discontinued Medications Generic Name Dose Route Start Last Admin Trade Name Freq PRN Reason Stop Dose Admin Albuterol Sulfate 5 mg 10/19/22 22:30 10/19/22 22:43 Albuterol Sulfate (0.083%) 2.5 Mg/3 Ml Vial.Neb INHALE 10/19/22 22:31 5 mg ONCE ONE Administration Sodium Chloride 2,000 mls @ 999 mls/hr 10/19/22 22:24 10/20/22 05:23 Ns IVCONT 10/20/22 00:24 Infused .Q2H1M ONE Infusion Piperacillin Sod/Tazobactam 100 mls @ 200 mls/hr 10/19/22 22:30 10/19/22 23:52 Sod 4.5 gm/ Sodium Chloride IV 10/19/22 22:59 Not Given ONCE ONE Potassium Chloride 10 meq in 100 mls @ 100 mls/hr 10/20/22 00:45 10/20/22 04:50 Potassium Chloride/H20 IV 10/20/22 04:44 100 mls/hr Q1H ABEL Administration Levofloxacin 500 mg in 100 mls @ 100 mls/hr 10/20/22 03:38 10/20/22 04:00 Levaquin IV 10/20/22 04:37 100 mls/hr ONCE ONE Administration Iohexol 65 ml 10/20/22 03:46 10/20/22 03:47 Iohexol 350 Mg/Ml 100 Ml Infus..Btl IV 10/20/22 03:47 65 ml ONCE ONE Administration Methylprednisolone Sodium Succinate 125 mg 10/19/22 22:30 10/19/22 23:53 Methylprednisolone Sod Succ 125 Mg/2 Ml Vial IVPUSH 10/19/22 22:31 125 mg ONCE ONE Administration Morphine Sulfate 2 mg 10/20/22 05:51 10/20/22 06:18 Morphine Sulfate 2 Mg/Ml Cartridge IVPUSH 10/20/22 05:52 2 mg ONCE ONE Administration Protocol Potassium Chloride 40 meq 10/20/22 00:08 10/20/22 00:21 Potassium Chloride Packet 20 Meq Packet PO 10/20/22 00:09 40 meq ONCE ONE Administration Medical Decision Making Medical Decision Making MDM Narrative: Patient's x-ray shows complete opacification of the left hemithorax with signi ficant volume loss suggesting a large component of atelectasis Possible post obstructive pneumonia could not be ruled out. However, patient was already treated with IV fluids and antibiotics. -patient is very sick. I discussed code status with the patient's who is at the bedside, patient is to be full code. Patient's oxygen saturation droppes to 87-89% on 6L. We attempted CPAP not as r escue but to help with the atelectasis, but patient did not tolerate the CPAP mask. We will switch the patient to high-flow Head CT and CTA for pulmonary embolism are pending. Patient's LFTs are elevated which is new. Patient had an MRI 6 days ago, there was no abnormality in the liver or gallbladder. Patient has gradually been getting anemic for the last couple of months. Guaiac stool test is negative. Given the patient's significant deconditioning on symptoms, I unit of packed red blood cells would be beneficial for her. I discussed the risks versus benefits of a blood transfusion. Patient's was at bedside and had this conversation with him as well. The patient agreed to the blood transfusion. However, she is altered and unclear if she actually understood. The patient's is agreeable to the blood transfusion. By the time I came back with the blood transfusion consent, the patient had already left, patient is too confused to sign. Patient been taking for CT scans CT scan for pulmonary embolism negative for PE. As noted before, patient has complete collapse of the left lung/atelectasis. Likely postobstructive pneumonia. Head CT negative for masses. Patient's oxygen saturation remained in the high 80s on 5-6 L of oxygen. We attempted switching the patient to CPAP but the patient did not tolerated. Patient is now on high-flow, oxygen saturation in the mid to high 90s, tolerating high-flow well. Patient is at this time, 640am much more awake, alert, conversing with her nurses. Patient is still altered but she is doing much better than when patient 1st arrived to the emergency room I discussed the patient with Dr. Rothman, pt being admitted by the hospitalist service. Lab Data 10/19/22 22:58 10/19/22 22:58 Labs: Lab Results 10/19/22 10/19/22 10/19/22 Range/Units 22:58 22:58 22:58 WBC 9.7 (4.8-10.8) X10*3/uL RBC 2.73 L (4.20-5.50) X10*6/uL Hgb 7.9 L (12.0-16.0) g/dl Hct 24.7 L (37.0-47.0) % MCV 90.5 (80.0-98.0) fL MCH 28.9 (27.0-33.0) pg MCHC 32.0 (31.0-35.0) g/dl RDW 14.6 (11.0-16.0) % Plt Count 39 L D (160-400) X10*3/uL MPV 10.7 (9.4-12.3) fL Immature Gran % (Auto) 4.6 H (0.0-0.4) % Neut % (Auto) 63.7 (45-73) % Lymph % (Auto) 22.6 (20-40) % [place] % (Auto) 8.4 (2-11) % Eos % (Auto) 0.2 (0-4) % Baso % (Auto) 0.5 (0-2) % Lymph # (Auto) 2.2 (1.2-4.9) X10*3/uL [place] # (Auto) 0.8 (0.1-1.2) X10*3/uL Eos # (Auto) 0.0 (0.0-0.4) X10*3/uL Baso # (Auto) 0.1 (0.0-0.2) X10*3/uL Abs Immat Gran (auto) 0.45 H (0.00-0.03) X10*3/uL Absolute Neuts (auto) 6.2 (2.0-8.3) x10*3/uL Absolute Nucleated RBC 0.240 H (0.0-0.012) X10*3/uL Nucleated RBC % (auto) 2.5 H (0.0-0.2) /100WBC PT 16.7 H (10.0-13.1) SEC INR 1.4 H (0.9-1.1) VBG pH (7.32-7.43) VBG pCO2 mmHg VBG pO2 mmHg VBG HCO3 (22-26) mmol/L VBG O2 Saturation % VBG Base Excess mmol/L Sodium 147 H (135-145) mmol/L Potassium 3.1 L (3.3-5.1) mmol/L Chloride 101 (96-108) mmol/L Carbon Dioxide 36 H (22-29) mmol/L Anion Gap 13 (12-20) BUN 31 H (9-16) mg/dL Creatinine 0.79 (0.5-1.4) mg/dL Estim Creat Clear Calc 48.8 Estimated GFR > 60 Random Glucose 175 H (60-115) mg/dL Lactic Acid (0.5-2.0) mmol/L Lactic Acid F/U @ 2Hr (0.5-2.0) mmol/L Lactic Acid F/U @ 4Hr (0.5-2.0) mmol/L Calcium 9.2 (8.4-10.2) mg/dL Magnesium 2.6 (1.6-2.6) mg/dL Total Bilirubin 2.2 H (0.0-1.0) mg/dL Direct Bilirubin 1.3 H (0.0-0.5) mg/dL AST 177 H (5-31) U/L ALT 98 H (0-31) U/L Alkaline Phosphatase 166 H (39-117) U/L Ammonia (13-55) umol/L Troponin I High Sens (<3.5-17.0) ng/L B-Natriuretic Peptide (<100) pg/mL Total Protein 5.5 L (6.5-8.0) g/dL Albumin 3.4 L (3.5-5.0) g/dL TSH (0.32-4.0) uIU/mL Urine Color Urine Appearance Urine pH (5.0-9.0) Ur Specific [place] (1.005-1.025) Urine Protein (Neg-Trace) mg/dL Urine Glucose (UA) (Negative) mg/dL Urine Ketones (Negative) mg/dL Urine Blood (Negative) Urine Nitrite (Negative) Ur Leukocyte Esterase (Negative) Stool Occult Blood (NEGATIVE) Urine Opiates Screen (Not Detect) Urine Fentanyl Screen (Not Detect) Ur Barbiturates Screen (Not Detect) Ur Phencyclidine Scrn (Not Detect) Ur Amphetamines Screen (Not Detect) U Benzodiazepines Scrn (Not Detect) Urine Cocaine Screen (Not Detect) U Marijuana (THC) Screen (Not Detect) COVID-19 (RONNIE) (Negative) COVID-19 Clin Com Blood Type Antibody Screen Crossmatch 10/19/22 10/19/22 10/19/22 Range/Units 22:59 22:59 22:59 WBC (4.8-10.8) X10*3/uL RBC (4.20-5.50) X10*6/uL Hgb (12.0-16.0) g/dl Hct (37.0-47.0) % MCV (80.0-98.0) fL MCH (27.0-33.0) pg MCHC (31.0-35.0) g/dl RDW (11.0-16.0) % Plt Count (160-400) X10*3/uL MPV (9.4-12.3) fL Immature Gran % (Auto) (0.0-0.4) % Neut % (Auto) (45-73) % Lymph % (Auto) (20-40) % [place] % (Auto) (2-11) % Eos % (Auto) (0-4) % Baso % (Auto) (0-2) % Lymph # (Auto) (1.2-4.9) X10*3/uL [place] # (Auto) (0.1-1.2) X10*3/uL Eos # (Auto) (0.0-0.4) X10*3/uL Baso # (Auto) (0.0-0.2) X10*3/uL Abs Immat Gran (auto) (0.00-0.03) X10*3/uL Absolute Neuts (auto) (2.0-8.3) x10*3/uL Absolute Nucleated RBC (0.0-0.012) X10*3/uL Nucleated RBC % (auto) (0.0-0.2) /100WBC PT (10.0-13.1) SEC INR (0.9-1.1) VBG pH (7.32-7.43) VBG pCO2 mmHg VBG pO2 mmHg VBG HCO3 (22-26) mmol/L VBG O2 Saturation % VBG Base Excess mmol/L Sodium (135-145) mmol/L Potassium (3.3-5.1) mmol/L Chloride (96-108) mmol/L Carbon Dioxide (22-29) mmol/L Anion Gap (12-20) BUN (9-16) mg/dL Creatinine (0.5-1.4) mg/dL Estim Creat Clear Calc Estimated GFR Random Glucose (60-115) mg/dL Lactic Acid 2.5 H* (0.5-2.0) mmol/L Lactic Acid F/U @ 2Hr (0.5-2.0) mmol/L Lactic Acid F/U @ 4Hr (0.5-2.0) mmol/L Calcium (8.4-10.2) mg/dL Magnesium (1.6-2.6) mg/dL Total Bilirubin (0.0-1.0) mg/dL Direct Bilirubin (0.0-0.5) mg/dL AST (5-31) U/L ALT (0-31) U/L Alkaline Phosphatase (39-117) U/L Ammonia 47 (13-55) umol/L Troponin I High Sens 35.8 H (<3.5-17.0) ng/L B-Natriuretic Peptide (<100) pg/mL Total Protein (6.5-8.0) g/dL Albumin (3.5-5.0) g/dL TSH (0.32-4.0) uIU/mL Urine Color Urine Appearance Urine pH (5.0-9.0) Ur Specific [place] (1.005-1.025) Urine Protein (Neg-Trace) mg/dL Urine Glucose (UA) (Negative) mg/dL Urine Ketones (Negative) mg/dL Urine Blood (Negative) Urine Nitrite (Negative) Ur Leukocyte Esterase (Negative) Stool Occult Blood (NEGATIVE) Urine Opiates Screen (Not Detect) Urine Fentanyl Screen (Not Detect) Ur Barbiturates Screen (Not Detect) Ur Phencyclidine Scrn (Not Detect) Ur Amphetamines Screen (Not Detect) U Benzodiazepines Scrn (Not Detect) Urine Cocaine Screen (Not Detect) U Marijuana (THC) Screen (Not Detect) COVID-19 (RONNIE) (Negative) COVID-19 Clin Com Blood Type Antibody Screen Crossmatch 10/19/22 10/19/22 10/19/22 Range/Units 22:59 22:59 23:08 WBC (4.8-10.8) X10*3/uL RBC (4.20-5.50) X10*6/uL Hgb (12.0-16.0) g/dl Hct (37.0-47.0) % MCV (80.0-98.0) fL MCH (27.0-33.0) pg MCHC (31.0-35.0) g/dl RDW (11.0-16.0) % Plt Count (160-400) X10*3/uL MPV (9.4-12.3) fL Immature Gran % (Auto) (0.0-0.4) % Neut % (Auto) (45-73) % Lymph % (Auto) (20-40) % [place] % (Auto) (2-11) % Eos % (Auto) (0-4) % Baso % (Auto) (0-2) % Lymph # (Auto) (1.2-4.9) X10*3/uL [place] # (Auto) (0.1-1.2) X10*3/uL Eos # (Auto) (0.0-0.4) X10*3/uL Baso # (Auto) (0.0-0.2) X10*3/uL Abs Immat Gran (auto) (0.00-0.03) X10*3/uL Absolute Neuts (auto) (2.0-8.3) x10*3/uL Absolute Nucleated RBC (0.0-0.012) X10*3/uL Nucleated RBC % (auto) (0.0-0.2) /100WBC PT (10.0-13.1) SEC INR (0.9-1.1) VBG pH 7.53 H (7.32-7.43) VBG pCO2 52 mmHg VBG pO2 47 mmHg VBG HCO3 43 H (22-26) mmol/L VBG O2 Saturation 76.0 % VBG Base Excess 19.1 mmol/L Sodium (135-145) mmol/L Potassium (3.3-5.1) mmol/L Chloride (96-108) mmol/L Carbon Dioxide (22-29) mmol/L Anion Gap (12-20) BUN (9-16) mg/dL Creatinine (0.5-1.4) mg/dL Estim Creat Clear Calc Estimated GFR Random Glucose (60-115) mg/dL Lactic Acid (0.5-2.0) mmol/L Lactic Acid F/U @ 2Hr (0.5-2.0) mmol/L Lactic Acid F/U @ 4Hr (0.5-2.0) mmol/L Calcium (8.4-10.2) mg/dL Magnesium (1.6-2.6) mg/dL Total Bilirubin (0.0-1.0) mg/dL Direct Bilirubin (0.0-0.5) mg/dL AST (5-31) U/L ALT (0-31) U/L Alkaline Phosphatase (39-117) U/L Ammonia (13-55) umol/L Troponin I High Sens (<3.5-17.0) ng/L B-Natriuretic Peptide 213 H (<100) pg/mL Total Protein (6.5-8.0) g/dL Albumin (3.5-5.0) g/dL TSH 0.63 (0.32-4.0) uIU/mL Urine Color Urine Appearance Urine pH (5.0-9.0) Ur Specific [place] (1.005-1.025) Urine Protein (Neg-Trace) mg/dL Urine Glucose (UA) (Negative) mg/dL Urine Ketones (Negative) mg/dL Urine Blood (Negative) Urine Nitrite (Negative) Ur Leukocyte Esterase (Negative) Stool Occult Blood (NEGATIVE) Urine Opiates Screen (Not Detect) Urine Fentanyl Screen (Not Detect) Ur Barbiturates Screen (Not Detect) Ur Phencyclidine Scrn (Not Detect) Ur Amphetamines Screen (Not Detect) U Benzodiazepines Scrn (Not Detect) Urine Cocaine Screen (Not Detect) U Marijuana (THC) Screen (Not Detect) COVID-19 (RONNIE) (Negative) COVID-19 Clin Com Blood Type Antibody Screen Crossmatch 10/19/22 10/20/22 10/20/22 Range/Units 23:10 00:35 01:41 WBC (4.8-10.8) X10*3/uL RBC (4.20-5.50) X10*6/uL Hgb (12.0-16.0) g/dl Hct (37.0-47.0) % MCV (80.0-98.0) fL MCH (27.0-33.0) pg MCHC (31.0-35.0) g/dl RDW (11.0-16.0) % Plt Count (160-400) X10*3/uL MPV (9.4-12.3) fL Immature Gran % (Auto) (0.0-0.4) % Neut % (Auto) (45-73) % Lymph % (Auto) (20-40) % [place] % (Auto) (2-11) % Eos % (Auto) (0-4) % Baso % (Auto) (0-2) % Lymph # (Auto) (1.2-4.9) X10*3/uL [place] # (Auto) (0.1-1.2) X10*3/uL Eos # (Auto) (0.0-0.4) X10*3/uL Baso # (Auto) (0.0-0.2) X10*3/uL Abs Immat Gran (auto) (0.00-0.03) X10*3/uL Absolute Neuts (auto) (2.0-8.3) x10*3/uL Absolute Nucleated RBC (0.0-0.012) X10*3/uL Nucleated RBC % (auto) (0.0-0.2) /100WBC PT (10.0-13.1) SEC INR (0.9-1.1) VBG pH (7.32-7.43) VBG pCO2 mmHg VBG pO2 mmHg VBG HCO3 (22-26) mmol/L VBG O2 Saturation % VBG Base Excess mmol/L Sodium (135-145) mmol/L Potassium (3.3-5.1) mmol/L Chloride (96-108) mmol/L Carbon Dioxide (22-29) mmol/L Anion Gap (12-20) BUN (9-16) mg/dL Creatinine (0.5-1.4) mg/dL Estim Creat Clear Calc Estimated GFR Random Glucose (60-115) mg/dL Lactic Acid (0.5-2.0) mmol/L Lactic Acid F/U @ 2Hr 2.1 H* (0.5-2.0) mmol/L Lactic Acid F/U @ 4Hr (0.5-2.0) mmol/L Calcium (8.4-10.2) mg/dL Magnesium (1.6-2.6) mg/dL Total Bilirubin (0.0-1.0) mg/dL Direct Bilirubin (0.0-0.5) mg/dL AST (5-31) U/L ALT (0-31) U/L Alkaline Phosphatase (39-117) U/L Ammonia (13-55) umol/L Troponin I High Sens (<3.5-17.0) ng/L B-Natriuretic Peptide (<100) pg/mL Total Protein (6.5-8.0) g/dL Albumin (3.5-5.0) g/dL TSH (0.32-4.0) uIU/mL Urine Color Urine Appearance Urine pH (5.0-9.0) Ur Specific [place] (1.005-1.025) Urine Protein (Neg-Trace) mg/dL Urine Glucose (UA) (Negative) mg/dL Urine Ketones (Negative) mg/dL Urine Blood (Negative) Urine Nitrite (Negative) Ur Leukocyte Esterase (Negative) Stool Occult Blood NEGATIVE (NEGATIVE) Urine Opiates Screen (Not Detect) Urine Fentanyl Screen (Not Detect) Ur Barbiturates Screen (Not Detect) Ur Phencyclidine Scrn (Not Detect) Ur Amphetamines Screen (Not Detect) U Benzodiazepines Scrn (Not Detect) Urine Cocaine Screen (Not Detect) U Marijuana (THC) Screen (Not Detect) COVID-19 (RONNIE) Negative (Negative) COVID-19 Clin Com See Note Blood Type Antibody Screen Crossmatch 10/20/22 10/20/22 10/20/22 Range/Units 01:41 04:13 04:14 WBC (4.8-10.8) X10*3/uL RBC (4.20-5.50) X10*6/uL Hgb (12.0-16.0) g/dl Hct (37.0-47.0) % MCV (80.0-98.0) fL MCH (27.0-33.0) pg MCHC (31.0-35.0) g/dl RDW (11.0-16.0) % Plt Count (160-400) X10*3/uL MPV (9.4-12.3) fL Immature Gran % (Auto) (0.0-0.4) % Neut % (Auto) (45-73) % Lymph % (Auto) (20-40) % [place] % (Auto) (2-11) % Eos % (Auto) (0-4) % Baso % (Auto) (0-2) % Lymph # (Auto) (1.2-4.9) X10*3/uL [place] # (Auto) (0.1-1.2) X10*3/uL Eos # (Auto) (0.0-0.4) X10*3/uL Baso # (Auto) (0.0-0.2) X10*3/uL Abs Immat Gran (auto) (0.00-0.03) X10*3/uL Absolute Neuts (auto) (2.0-8.3) x10*3/uL Absolute Nucleated RBC (0.0-0.012) X10*3/uL Nucleated RBC % (auto) (0.0-0.2) /100WBC PT (10.0-13.1) SEC INR (0.9-1.1) VBG pH (7.32-7.43) VBG pCO2 mmHg VBG pO2 mmHg VBG HCO3 (22-26) mmol/L VBG O2 Saturation % VBG Base Excess mmol/L Sodium (135-145) mmol/L Potassium (3.3-5.1) mmol/L Chloride (96-108) mmol/L Carbon Dioxide (22-29) mmol/L Anion Gap (12-20) BUN (9-16) mg/dL Creatinine (0.5-1.4) mg/dL Estim Creat Clear Calc Estimated GFR Random Glucose (60-115) mg/dL Lactic Acid (0.5-2.0) mmol/L Lactic Acid F/U @ 2Hr (0.5-2.0) mmol/L Lactic Acid F/U @ 4Hr (0.5-2.0) mmol/L Calcium (8.4-10.2) mg/dL Magnesium (1.6-2.6) mg/dL Total Bilirubin (0.0-1.0) mg/dL Direct Bilirubin (0.0-0.5) mg/dL AST (5-31) U/L ALT (0-31) U/L Alkaline Phosphatase (39-117) U/L Ammonia (13-55) umol/L Troponin I High Sens (<3.5-17.0) ng/L B-Natriuretic Peptide (<100) pg/mL Total Protein (6.5-8.0) g/dL Albumin (3.5-5.0) g/dL TSH (0.32-4.0) uIU/mL Urine Color DK YELLOW Urine Appearance Clear Urine pH 6.0 (5.0-9.0) Ur Specific [place] 1.025 (1.005-1.025) Urine Protein Trace (Neg-Trace) mg/dL Urine Glucose (UA) Negative (Negative) mg/dL Urine Ketones Trace (Negative) mg/dL Urine Blood Negative (Negative) Urine Nitrite Negative (Negative) Ur Leukocyte Esterase Negative (Negative) Stool Occult Blood (NEGATIVE) Urine Opiates Screen Not Detected (Not Detect) Urine Fentanyl Screen Not Detected (Not Detect) Ur Barbiturates Screen Not Detected (Not Detect) Ur Phencyclidine Scrn Not Detected (Not Detect) Ur Amphetamines Screen Not Detected (Not Detect) U Benzodiazepines Scrn Not Detected (Not Detect) Urine Cocaine Screen Not Detected (Not Detect) U Marijuana (THC) Screen Not Detected (Not Detect) COVID-19 (RONNIE) (Negative) COVID-19 Clin Com Blood Type O Positive Antibody Screen NEGATIVE Crossmatch See Detail 10/20/22 10/20/22 Range/Units 04:16 05:16 WBC (4.8-10.8) X10*3/uL RBC (4.20-5.50) X10*6/uL Hgb (12.0-16.0) g/dl Hct (37.0-47.0) % MCV (80.0-98.0) fL MCH (27.0-33.0) pg MCHC (31.0-35.0) g/dl RDW (11.0-16.0) % Plt Count (160-400) X10*3/uL MPV (9.4-12.3) fL Immature Gran % (Auto) (0.0-0.4) % Neut % (Auto) (45-73) % Lymph % (Auto) (20-40) % [place] % (Auto) (2-11) % Eos % (Auto) (0-4) % Baso % (Auto) (0-2) % Lymph # (Auto) (1.2-4.9) X10*3/uL [place] # (Auto) (0.1-1.2) X10*3/uL Eos # (Auto) (0.0-0.4) X10*3/uL Baso # (Auto) (0.0-0.2) X10*3/uL Abs Immat Gran (auto) (0.00-0.03) X10*3/uL Absolute Neuts (auto) (2.0-8.3) x10*3/uL Absolute Nucleated RBC (0.0-0.012) X10*3/uL Nucleated RBC % (auto) (0.0-0.2) /100WBC PT (10.0-13.1) SEC INR (0.9-1.1) VBG pH 7.55 H (7.32-7.43) VBG pCO2 37 mmHg VBG pO2 192 mmHg VBG HCO3 32 H (22-26) mmol/L VBG O2 Saturation 100.0 % VBG Base Excess 9.6 mmol/L Sodium (135-145) mmol/L Potassium (3.3-5.1) mmol/L Chloride (96-108) mmol/L Carbon Dioxide (22-29) mmol/L Anion Gap (12-20) BUN (9-16) mg/dL Creatinine (0.5-1.4) mg/dL Estim Creat Clear Calc Estimated GFR Random Glucose (60-115) mg/dL Lactic Acid (0.5-2.0) mmol/L Lactic Acid F/U @ 2Hr (0.5-2.0) mmol/L Lactic Acid F/U @ 4Hr 2.7 H* (0.5-2.0) mmol/L Calcium (8.4-10.2) mg/dL Magnesium (1.6-2.6) mg/dL Total Bilirubin (0.0-1.0) mg/dL Direct Bilirubin (0.0-0.5) mg/dL AST (5-31) U/L ALT (0-31) U/L Alkaline Phosphatase (39-117) U/L Ammonia (13-55) umol/L Troponin I High Sens (<3.5-17.0) ng/L B-Natriuretic Peptide (<100) pg/mL Total Protein (6.5-8.0) g/dL Albumin (3.5-5.0) g/dL TSH (0.32-4.0) uIU/mL Urine Color Urine Appearance Urine pH (5.0-9.0) Ur Specific [place] (1.005-1.025) Urine Protein (Neg-Trace) mg/dL Urine Glucose (UA) (Negative) mg/dL Urine Ketones (Negative) mg/dL Urine Blood (Negative) Urine Nitrite (Negative) Ur Leukocyte Esterase (Negative) Stool Occult Blood (NEGATIVE) Urine Opiates Screen (Not Detect) Urine Fentanyl Screen (Not Detect) Ur Barbiturates Screen (Not Detect) Ur Phencyclidine Scrn (Not Detect) Ur Amphetamines Screen (Not Detect) U Benzodiazepines Scrn (Not Detect) Urine Cocaine Screen (Not Detect) U Marijuana (THC) Screen (Not Detect) COVID-19 (RONNIE) (Negative) COVID-19 Clin Com Blood Type Antibody Screen Crossmatch Critical Care Time Critical Care Time Critical Care Time: Yes Total Critical Care Time: 120 Attestation: I have personally provided critical care time. Time includes review of lab data, radiology results, discussion with consultants, and monitoring for potential decompensation. Intervention performed as documented. Discharge Plan Discharge Clinical Impression: Postobstructive pneumonia, Respiratory failure, Anemia, Elevated LFTs, Encephalopathy Prescriptions: No Action ondansetron 8 mg Tablet,Disintegrating 8 mg PO Q8H PRN (Reason: Nausea And Vomiting) Qty: 50 5RF dexamethasone 4 mg Tablet 4 mg PO BID Qty: 60 5RF Rx Instructions: TAKE 4 MG TWICE A DAY DAY 2 AND 3 OF CHEMO EVERY 3 WEEKS. albuterol sulfate 2.5 mg /3 mL (0.083 %) solution for nebulization 1 vial inhalation Q4H PRN (Reason: Shortness Of Breath Or Wheezing) alprazolam [Xanax] 0.25 mg tablet 0.25 mg PO BID PRN (Reason: Anxiety) clonidine HCl 0.1 mg tablet 0.05 mg PO BID fluoxetine 20 mg capsule 20 mg PO BID Rx Instructions: administer in the morning and at noon/midday buspirone 10 mg tablet 10 mg PO DAILY fluticasone propion-salmeterol [Wixela Inhub] 250-50 mcg/dose blister with device 1 inh inhalation BID methadone 5 mg tablet 5 mg PO DAILY Rx Instructions: 72 mg daily as of 09/09/2022 prochlorperazine maleate 10 mg tablet 10 mg PO DAILY (DME) nebulizers Mis See Rx Instructions .ROUTE Rx Instructions: As directed (DME) Oxygen Home Use Kit See Rx Instructions .ROUTE Rx Instructions: As directed albuterol sulfate [ProAir HFA] 90 mcg/actuation HFA aerosol inhaler 2 puff inhalation Q6H PRN (Reason: Shortness Of Breath Or Wheezing) doxycycline monohydrate 100 mg tablet 100 mg PO BID 14 Days Qty: 28 0RF
[2022-10-19 23:27] LABS: Lactic Acid 2.5 mmol/L (0.5-2.0)
[2022-10-19 23:28] LABS: B Type Natriuretic Peptide 213 pg/mL (<100)
[2022-10-19 23:41] LABS: Troponin-I High Sensitivity 35.8 ng/L (<3.5-17.0)
[2022-10-19 23:41] LABS: COVID-19 Test Negative (Negative); IDNOW Serial# BCCEAD1C
[2022-10-19 23:44] LABS: TSH reflex Free T4 0.63 uIU/mL (0.32-4.0)
[2022-10-19 23:47] LABS: Venous Blood Gas Refer to POC result
[2022-10-19] MEDS: 0.9 % Sodium Chloride 2,000 ML 999 ML IVCONT (23:50)
[2022-10-19] MEDS: methylPREDNISolone Sod Succ 125 MG/2 ML VIAL IVPUSH (23:53)
[2022-10-20] VITALS (25 sets, daily range): BP systolic 122–159; BP diastolic 66–98; PULSE 74–118; RESP 12–123; TEMP 36.9–38; O2SAT 45–98
[2022-10-20] MEDS: Potassium Chloride Packet 20 MEQ PACKET 40 MEQ PO (00:21)
[2022-10-20 00:42] LABS: OBS1 NEGATIVE (NEGATIVE)
[2022-10-20 00:43] LABS: OBS Int Ctl Valid YES
[2022-10-20 01:03] LABS: Reflex Lactate? Lactic Acid Added
[2022-10-20] MEDS: Potassium Chloride/H20 10 MEQ/100 ML PIGGYBACK 100 MEQ IV ×4 (01:26→08:29)
--- NOTE | 2022-10-20 02:01 | PC.NURSE ---
Pt is alert and confused to baseline. Skin moist and warm. Pt remains to be on IV fluids, tolerating well
[2022-10-20 02:14] LABS: ~Lactic Acid-LAB USE ONLY 2.1 mmol/L (0.5-2.0)
--- NOTE | 2022-10-20 02:55 | PC.NURSE ---
Pt is resting peacefully, vitals are WNL. Skin dry and warm. No signs of resp distress
--- NOTE | 2022-10-20 03:12 | PC.NURSE ---
Patient is alert, asking to be put on a bed abrams. Pt denies to be in pain. Vitals are WNL. Sitter present
[2022-10-20 03:45] LABS: Reflex Lactate? 2 Y
[2022-10-20] MEDS: iohexoL 350 MG/ML 100 ML INFUS..BTL 65 ML IV (03:47)
[2022-10-20] MEDS: levoFLOXacin/D5W 500 MG/100 ML PIGGYBACK 100 MG IV (04:00)
[2022-10-20 04:23] LABS: Appearance Urine Clear; Color Urine DK YELLOW; Glucose Urine UA Negative (Negative); Leukocyte Esterase Urine Negative (Negative); Nitrite Urine Negative (Negative); Specific Gravity - Urine 1.025 (1.005-1.025); Urine Blood Negative (Negative); Urine Ketones Trace mg/dL (Negative); Urine Protein Trace mg/dL (Neg-Trace)
[2022-10-20 04:32] LABS: Amphetamine Screen Urine Not Detected (Not Detect); Barbiturates, Urine Not Detected (Not Detect); Benzodiazepines Screen Urine Not Detected (Not Detect); Cannabinoid Screen Urine Not Detected (Not Detect); Cocaine Screen Urine Not Detected (Not Detect); Fentanyl, urine Not Detected (Not Detect); Opiate Screen Urine Not Detected (Not Detect); Phencyclidine Screen Urine Not Detected (Not Detect)
[2022-10-20 04:38] LABS: ~Lactic Acid-LAB USE ONLY 2.7 mmol/L (0.5-2.0)
[2022-10-20 05:21] LABS: VBG Base Excess 9.6 mmol/L; VBG HCO3 32 mmol/L (22-26); VBG pCO2 37 mmHg; VBG pH 7.55 (7.32-7.43); VBG pO2 192 mmHg
[2022-10-20 05:21] LABS: Venous Blood Gas Refer to POC result
--- NOTE | 2022-10-20 05:34 | PC.NURSE ---
pt has been on high flow nc with resp at bedside. pt has been able to comunicate with staff better but is still sob. sat drop easy with the nc high flow sliding off of her head. pt size of nc changed from large to small. sat 94% at this time. pt is sitting straight upright. pt taking deep breaths at a rate of 17 to 20. left lung absent breath sounds. right clear to base but with slightly diminished thru out. dr blanc is aware of pt status and is aware of the pt code status of full code at this time. pt is aware that she has lung cancer and her wishes are to be a full code.
--- NOTE | 2022-10-20 06:08 | PC.NURSE ---
verbal order for vbg or abg to be obtained. vbg obtained due to resp unable to obtain abg at this time.
--- NOTE | 2022-10-20 06:10 | PC.NURSE ---
Pt is alert and confused to her baseline. Pt is receiving blood transfusion, vitals are WNL. Pt tolerated well
[2022-10-20] MEDS: Morphine Sulfate 2 MG/ML CARTRIDGE IVPUSH ×3 (06:18→15:39)
--- NOTE | 2022-10-20 06:31 | PC.NURSE ---
Pt is alert, easy arrousable, verbal stimuli. Pt was just medicated with Morphine and is a little vague of where she is right now. Pt breathing effort much improved.
--- NOTE | 2022-10-20 06:34 | PC.NURSE ---
Pt upper dentures are in a cup by a bed side.
--- NOTE | 2022-10-20 08:30 | PC.NURSE ---
patient only alert to self , confused . perrla . heart rate regular at 98 beats per minute . breathing labored , lungs diminished throughout . left lung little air flow noted . patient currently on 60 % high flow .skin is pink , warm and dry . abdomen is soft . patient has completed one unit RBC with no reactions noted. patient on cardiac rehab nurse . patient is confused and is easily redirected needs high flow reapplied at times other daily patients oxygen immediately decreases into 80's . patient is aware of plan of care .
--- NOTE | 2022-10-20 08:31 | PC.NURSE ---
Patient has several bruises noted on skin , left A.C from IV attempt . bruise on left buttocks . and right inner buttocks red blanchable area . patient aware of plan of care .
--- NOTE | 2022-10-20 09:18 | PHA.MEDREC ---
Pharmacy Consult ? Medication Reconciliation Pharmacy has completed the medication reconciliation. Patient's was called and confirmed meds based off RX bottles at home.
[2022-10-20] MEDS: fentaNYL citrate/PF 100 MCG/2 ML VIAL 25 MCG IVPUSH ×2 (09:56→11:06)
--- NOTE | 2022-10-20 10:04 | PC.NURSE ---
patient exhibiting signs and symptoms of increased pain and discomfort . heart rate elevated at 110-120 . patient had increased restless ness and began to yell out when being repositioned . obtained order for IVP fentynl by Dr. Aguiar . administered as ordered . 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
--- NOTE | 2022-10-20 10:20 | MHC.EDTECH ---
Wash patient ,clean linen and reposition patient.
--- NOTE | 2022-10-20 11:12 | PC.NURSE ---
Patient exhibiting signs and symptoms of discomfort increased restlessness and confusion , administered fentynal as ordered by provider . Patient continues on rn cardiac .
--- NOTE | 2022-10-20 11:20 | PM.IMHP ---
History of Present Illness Date of Service: 10/20/22 Attending physician on admission: Narinder eSnior Chief Complaint: AMS Pt is a 67-year-old female with a PMH significant for?small cell lung cancer diagnosed three months ago followed by Dr. Phillips, COPD, osteopenia, and depression who presents to the ED from home after 4 days of altered mental status and increasing difficulty breathing. According to EMS patient was found hypoxic satting in the 70s on RA. Pt was supposed to be on 4L supplemental O2. Of note, pt was recently diagnosed with small cell lung cancer and recently saw her marine scientist Dr. Levine 2 days ago. Pt has appointment with onlcology in 2 days and was set to start chemotherapy next week. Pt is alert to person only and not capable of providing an HPI. In the ED patient was satting at 85% on 3 L of O2, increased to 5 L satting in the low 90s, then became hypoxic again. O2 increased to 5-6 L without much effect. ED attempted to switch patient to CPAP but patient could not tolerate mask so placed on high-flow with O2 sats in mid to high 90s, tolerating well. Llabs were significant for worsening H&H of 7.9/24.7, worsening platelets of 39, sodium of 147, potassium 3.1, lactic acid of 2.5, 2.1, and then 2.7, total bilirubin of 2.2, direct bilirubin 1.3, AST of 177, ALT of 98, alk-phos of 166, troponin mildly elevated at 35.8, and BNP of 213. VBG showed pH of 7.53 and HC03 of 43. UA clear. EKG showed sinus rhythm with no evidence of acute ischemia. CXR showed complete opacification of the left hemithorax with significant volume loss suggesting large component of atelectasis, possible superimposed postobstructive pneumonia or pleural fluid. CTA was negative for pulmonary embolism but showed complete collapse of the left lung and increased mediastinal lymphadenopathy consistent with metastatic disease. CT of head found no acute intracranial pathology Pt was treated with IVF, Solu-Medrol, Zosyn and levofloxacin, potassium chloride, morphine and fentanyl. Pt will be admitted to the hospital acute respiratory failure in setting of obstructive pneumonia due to small cell lung cancer. Review of Systems Review of Systems: Unable to obtain due to patient's mentation [facility] Medical History Anxiety COPD (chronic obstructive pulmonary disease) COPD (chronic obstructive pulmonary disease) Depression Hip pain, right Nicotine dependence, cigarettes, uncomplicated Osteopenia (~2015) Pneumonia Small cell lung cancer (~2021) Family History Other No family history of cancer Surgical History H/O tooth extraction History of bronchoscopy History of colonoscopy History of tonsillectomy Social History Household Members: Spouse Housing: Other Housing Other:: mobile home Are you a primary point of care technician to a significant other at home: No Do you presently have visiting nurse or other home services: No Patient Tobacco Use Status: Current everyday Tobacco user Tobacco use type: Cigarette Years Smoked: 50 Advance Directives: No service: No Current occupational status: retired Meds Allergies Allergy/AdvReac Type Severity Reaction Status Date / Time Penicillins [PENICILLINS] Allergy Unknown Rash Verified 10/17/22 10:39 bee pollen [bee stings] Allergy Anaphylaxis Verified 10/17/22 10:39 Home Medications Medication Instructions Recorded Confirmed Last Taken Type alprazolam 0.25 mg tablet (Xanax) 0.25 mg PO BID PRN Anxiety 09/09/22 10/20/22 09/12/22 01:30 History buspirone 10 mg tablet 10 mg PO BID 09/09/22 10/20/22 10/19/22 History clonidine HCl 0.1 mg tablet 0.1 mg PO QID 09/09/22 10/20/22 10/19/22 History fluoxetine 20 mg capsule 20 mg PO DAILY 09/09/22 10/20/22 10/19/22 History fluticasone 250 mcg-salmeterol 50 1 inh inhalation BID 09/09/22 10/20/22 10/19/22 History mcg/dose blistr powdr for inhalation (Wixela Inhub) methadone 5 mg tablet 5 mg PO DAILY 09/09/22 10/13/22 09/12/22 07:30 History albuterol sulfate 2.5 mg/3 mL 1 vial inhalation Q4H PRN 09/12/22 10/20/22 Unknown History (0.083 %) solution for nebulization Shortness Of Breath Or Wheezing Oxygen Home Use 09/14/22 10/13/22 Unknown History albuterol sulfate 90 mcg/actuation 2 puff inhalation Q6H PRN 09/14/22 10/20/22 Unknown History aerosol inhaler (ProAir HFA) Shortness Of Breath Or Wheezing nebulizers 09/14/22 10/13/22 Unknown History prochlorperazine maleate 10 mg 10 mg PO BID PRN Nausea And 09/14/22 10/20/22 Unknown History tablet Vomiting ascorbic acid (vitamin C) 500 mg 500 mg PO DAILY 10/20/22 10/20/22 10/19/22 History tablet (Vitamin C) cholecalciferol (vitamin D3) 25 25 mcg PO DAILY 10/20/22 10/20/22 10/19/22 History mcg (1,000 unit) tablet (Vitamin D3) magnesium oxide 250 mg PO DAILY 10/20/22 10/20/22 10/19/22 History omega 7-hpn-dko-fish oil 1,000 mg 1 cap PO DAILY 10/20/22 10/20/22 10/19/22 History (120 mg-180 mg) capsule (Fish Oil) vitamin E 400 unit tablet 180 mg PO DAILY 10/20/22 10/20/22 10/19/22 History Physical Exam Vital Signs and Narrative: Vital Signs: Last Vital Signs Temp 98.5 F 10/20/22 08:33 Pulse 98 10/20/22 08:33 Resp 16 10/20/22 11:06 BP 135/80 10/20/22 08:33 Pulse Ox 95 10/20/22 06:15 O2 Del Method 10/20/22 06:15 O2 Flow Rate 60 10/20/22 06:15 FiO2 45 10/20/22 06:15 Oxygen Flow Rate 5 10/19/22 22:21 BMI result Body Mass Index 18.8 Constitutional: Alert to person only, uncomfortable and agitated. Mental Status: Oriented to person only. Eyes: Pupils are equal, round, and reactive to light. Ear, Nose, and Throat: Oropharynx clear, mucous membranes moist. Ears and nose without deformities. Trachea midline. Respiratory: Absent breath sounds on left side. Cardiovascular: S1, S2 regular. No murmurs, rubs, or gallops. Gastrointestinal: Abdomen soft, non-tender, non-distended. Normal bowel sounds. Neurologic: Cranial nerves II-XI are grossly intact. No focal neurological deficits. Moves all extremities spontaneously. Musculoskeletal: No cyanosis or clubbing. Extremities: No edema. Results Labs 10/19/22 22:58 10/19/22 22:58 Labs: Laboratory Results - last 24 hr 10/19/22 10/19/22 10/19/22 22:58 22:58 22:58 MCV 90.5 MCH 28.9 MCHC 32.0 RDW 14.6 Plt Count 39 L D MPV 10.7 Immature Gran % (Auto) 4.6 H Neut % (Auto) 63.7 Lymph % (Auto) 22.6 [place] % (Auto) 8.4 Eos % (Auto) 0.2 Baso % (Auto) 0.5 Lymph # (Auto) 2.2 [place] # (Auto) 0.8 Eos # (Auto) 0.0 Baso # (Auto) 0.1 Abs Immat Gran (auto) 0.45 H Absolute Neuts (auto) 6.2 Absolute Nucleated RBC 0.240 H Nucleated RBC % (auto) 2.5 H PT 16.7 H INR 1.4 H VBG pH VBG pCO2 VBG pO2 VBG HCO3 VBG O2 Saturation VBG Base Excess Anion Gap 13 Estim Creat Clear Calc 48.8 Estimated GFR > 60 Random Glucose 175 H Lactic Acid Lactic Acid F/U @ 2Hr Lactic Acid F/U @ 4Hr Calcium 9.2 Magnesium 2.6 Total Bilirubin 2.2 H Direct Bilirubin 1.3 H AST 177 H ALT 98 H Alkaline Phosphatase 166 H Ammonia Troponin I High Sens B-Natriuretic Peptide Total Protein 5.5 L Albumin 3.4 L TSH Urine Color Urine Appearance Urine pH Ur Specific [place] Urine Protein Urine Glucose (UA) Urine Ketones Urine Blood Urine Nitrite Ur Leukocyte Esterase Stool Occult Blood Urine Opiates Screen Urine Fentanyl Screen Ur Barbiturates Screen Ur Phencyclidine Scrn Ur Amphetamines Screen U Benzodiazepines Scrn Urine Cocaine Screen U Marijuana (THC) Screen COVID-19 (RONNIE) COVID-19 Clin Com Blood Type Antibody Screen Crossmatch 10/19/22 10/19/22 10/19/22 22:59 22:59 22:59 MCV MCH MCHC RDW Plt Count MPV Immature Gran % (Auto) Neut % (Auto) Lymph % (Auto) [place] % (Auto) Eos % (Auto) Baso % (Auto) Lymph # (Auto) [place] # (Auto) Eos # (Auto) Baso # (Auto) Abs Immat Gran (auto) Absolute Neuts (auto) Absolute Nucleated RBC Nucleated RBC % (auto) PT INR VBG pH VBG pCO2 VBG pO2 VBG HCO3 VBG O2 Saturation VBG Base Excess Anion Gap Estim Creat Clear Calc Estimated GFR Random Glucose Lactic Acid 2.5 H* Lactic Acid F/U @ 2Hr Lactic Acid F/U @ 4Hr Calcium Magnesium Total Bilirubin Direct Bilirubin AST ALT Alkaline Phosphatase Ammonia 47 Troponin I High Sens 35.8 H B-Natriuretic Peptide Total Protein Albumin TSH Urine Color Urine Appearance Urine pH Ur Specific [place] Urine Protein Urine Glucose (UA) Urine Ketones Urine Blood Urine Nitrite Ur Leukocyte Esterase Stool Occult Blood Urine Opiates Screen Urine Fentanyl Screen Ur Barbiturates Screen Ur Phencyclidine Scrn Ur Amphetamines Screen U Benzodiazepines Scrn Urine Cocaine Screen U Marijuana (THC) Screen COVID-19 (RONNIE) COVID-19 Clin Com Blood Type Antibody Screen Crossmatch 10/19/22 10/19/22 10/19/22 22:59 22:59 23:08 MCV MCH MCHC RDW Plt Count MPV Immature Gran % (Auto) Neut % (Auto) Lymph % (Auto) [place] % (Auto) Eos % (Auto) Baso % (Auto) Lymph # (Auto) [place] # (Auto) Eos # (Auto) Baso # (Auto) Abs Immat Gran (auto) Absolute Neuts (auto) Absolute Nucleated RBC Nucleated RBC % (auto) PT INR VBG pH 7.53 H VBG pCO2 52 VBG pO2 47 VBG HCO3 43 H VBG O2 Saturation 76.0 VBG Base Excess 19.1 Anion Gap Estim Creat Clear Calc Estimated GFR Random Glucose Lactic Acid Lactic Acid F/U @ 2Hr Lactic Acid F/U @ 4Hr Calcium Magnesium Total Bilirubin Direct Bilirubin AST ALT Alkaline Phosphatase Ammonia Troponin I High Sens B-Natriuretic Peptide 213 H Total Protein Albumin TSH 0.63 Urine Color Urine Appearance Urine pH Ur Specific [place] Urine Protein Urine Glucose (UA) Urine Ketones Urine Blood Urine Nitrite Ur Leukocyte Esterase Stool Occult Blood Urine Opiates Screen Urine Fentanyl Screen Ur Barbiturates Screen Ur Phencyclidine Scrn Ur Amphetamines Screen U Benzodiazepines Scrn Urine Cocaine Screen U Marijuana (THC) Screen COVID-19 (RONNIE) COVID-19 Clin Com Blood Type Antibody Screen Crossmatch 10/19/22 10/20/22 10/20/22 23:10 00:35 01:41 MCV MCH MCHC RDW Plt Count MPV Immature Gran % (Auto) Neut % (Auto) Lymph % (Auto) [place] % (Auto) Eos % (Auto) Baso % (Auto) Lymph # (Auto) [place] # (Auto) Eos # (Auto) Baso # (Auto) Abs Immat Gran (auto) Absolute Neuts (auto) Absolute Nucleated RBC Nucleated RBC % (auto) PT INR VBG pH VBG pCO2 VBG pO2 VBG HCO3 VBG O2 Saturation VBG Base Excess Anion Gap Estim Creat Clear Calc Estimated GFR Random Glucose Lactic Acid Lactic Acid F/U @ 2Hr 2.1 H* Lactic Acid F/U @ 4Hr Calcium Magnesium Total Bilirubin Direct Bilirubin AST ALT Alkaline Phosphatase Ammonia Troponin I High Sens B-Natriuretic Peptide Total Protein Albumin TSH Urine Color Urine Appearance Urine pH Ur Specific [place] Urine Protein Urine Glucose (UA) Urine Ketones Urine Blood Urine Nitrite Ur Leukocyte Esterase Stool Occult Blood NEGATIVE Urine Opiates Screen Urine Fentanyl Screen Ur Barbiturates Screen Ur Phencyclidine Scrn Ur Amphetamines Screen U Benzodiazepines Scrn Urine Cocaine Screen U Marijuana (THC) Screen COVID-19 (RONNIE) Negative COVID-19 [employer] See Note Blood Type Antibody Screen Crossmatch 10/20/22 10/20/22 10/20/22 01:41 04:13 04:14 MCV MCH MCHC RDW Plt Count MPV Immature Gran % (Auto) Neut % (Auto) Lymph % (Auto) [place] % (Auto) Eos % (Auto) Baso % (Auto) Lymph # (Auto) [place] # (Auto) Eos # (Auto) Baso # (Auto) Abs Immat Gran (auto) Absolute Neuts (auto) Absolute Nucleated RBC Nucleated RBC % (auto) PT INR VBG pH VBG pCO2 VBG pO2 VBG HCO3 VBG O2 Saturation VBG Base Excess Anion Gap Estim Creat Clear Calc Estimated GFR Random Glucose Lactic Acid Lactic Acid F/U @ 2Hr Lactic Acid F/U @ 4Hr Calcium Magnesium Total Bilirubin Direct Bilirubin AST ALT Alkaline Phosphatase Ammonia Troponin I High Sens B-Natriuretic Peptide Total Protein Albumin TSH Urine Color DK YELLOW Urine Appearance Clear Urine pH 6.0 Ur Specific [place] 1.025 Urine Protein Trace Urine Glucose (UA) Negative Urine Ketones Trace Urine Blood Negative Urine Nitrite Negative Ur Leukocyte Esterase Negative Stool Occult Blood Urine Opiates Screen Not Detected Urine Fentanyl Screen Not Detected Ur Barbiturates Screen Not Detected Ur Phencyclidine Scrn Not Detected Ur Amphetamines Screen Not Detected U Benzodiazepines Scrn Not Detected Urine Cocaine Screen Not Detected U Marijuana (THC) Screen Not Detected COVID-19 (RONNIE) COVID-19 Clin Com Blood Type O Positive Antibody Screen NEGATIVE Crossmatch See Detail 10/20/22 10/20/22 04:16 05:16 MCV MCH MCHC RDW Plt Count MPV Immature Gran % (Auto) Neut % (Auto) Lymph % (Auto) [place] % (Auto) Eos % (Auto) Baso % (Auto) Lymph # (Auto) [place] # (Auto) Eos # (Auto) Baso # (Auto) Abs Immat Gran (auto) Absolute Neuts (auto) Absolute Nucleated RBC Nucleated RBC % (auto) PT INR VBG pH 7.55 H VBG pCO2 37 VBG pO2 192 VBG HCO3 32 H VBG O2 Saturation 100.0 VBG Base Excess 9.6 Anion Gap Estim Creat Clear Calc Estimated GFR Random Glucose Lactic Acid Lactic Acid F/U @ 2Hr Lactic Acid F/U @ 4Hr 2.7 H* Calcium Magnesium Total Bilirubin Direct Bilirubin AST ALT Alkaline Phosphatase Ammonia Troponin I High Sens B-Natriuretic Peptide Total Protein Albumin TSH Urine Color Urine Appearance Urine pH Ur Specific [place] Urine Protein Urine Glucose (UA) Urine Ketones Urine Blood Urine Nitrite Ur Leukocyte Esterase Stool Occult Blood Urine Opiates Screen Urine Fentanyl Screen Ur Barbiturates Screen Ur Phencyclidine Scrn Ur Amphetamines Screen U Benzodiazepines Scrn Urine Cocaine Screen U Marijuana (THC) Screen COVID-19 (RONNIE) COVID-19 Clin Com Blood Type Antibody Screen Crossmatch Imaging Radiologist's Impressions: Impressions Chest X-Ray 10/19/22 23:38 IMPRESSION: 1. Interval complete opacification left hemithorax with significant volume loss suggesting a large component of atelectasis. The patient's left hilar lung mass as well as the mediastinum are obscured. 2. Cannot exclude superimposed postobstructive pneumonia or component of pleural fluid. Chest CTA 10/20/22 04:26 IMPRESSION: 1. No pulmonary embolism. 2. Complete collapse of the left lung. Left mainstem bronchus occlusion. This is progressive from 09/07/2022. Underlying mass cannot be evaluated with this appearance. 3. Mediastinal lymphadenopathy, increased from previous, consistent with metastatic disease. VTE: negative Head CT 10/20/22 04:26 IMPRESSION: No acute intracranial pathology. Assessment and Plan (1) Collapse of left lung: Status: Acute (2) Mediastinal lymphadenopathy: Status: Acute (3) Acute and chronic respiratory failure: Status: Acute (4) Postobstructive pneumonia: Status: Acute (5) Respiratory failure: Status: Acute (6) Small cell lung cancer: Status: Acute Plan Pt is a 67-year-old female with a PMH significant for?small cell lung cancer diagnosed three months ago followed by Dr. Phillips, COPD, osteopenia, and depression who presents to the ED from home after 4 days of altered mental status and increasing difficulty breathing. Pt will be admitted to the hospital acute respiratory failure in setting of obstructive pneumonia due to small cell lung cancer. Acute respiratory failure in the setting of obstructive pneumonia Likely secondary to small cell lung cancer CT shows complete blockage of left bronchus with complete collapse of left lung, likely secondary to small cell lung cancer Continue hi-flow IV abx: Levofloxacin 750 IV qd, vanco Solu-medrol 60mg q6 IVF Morphine 2mg q2 for pain management Altered mental status Likely secondary to respiratory failure Hold all home meds for now d/t mentation Small small lung cancer CT shows evidence of likely metastasis to mediastinal lymph nodes Followed by Dr. Phillips Postobstructive pneumonia HR and RR secondary to pneumonia, not sepsis Thrombocytopenia secondary to chemotherapy, not sepsis Diet Hold off on swallow evaluation for 24 hours, pending response to therapy Advance to clear liquids if passes swallow Anemia Patient has progressive anemia for the past month Holding off on transfusion for now d/t rapid progression of pt's cancer Consider transfusion if pt responds well to therapy DNI/DNR Attending: Dr. Blount? DVT Prophylaxis: Lovenox Pt will require a hospitalization of at least two nights for treatment of?acute respiratory failure in the setting of obstructive pneumonia likely secondary to small cell cancer. Time Spent With Patient Time: Total time managing care of this patient today ____ minutes. Quality Stroke Does the patient have a stroke diagnosis?: No VTE Prior VTE?: No VTE Risk Level:: Medical - moderate - high VTE Device Contraindication: Treatment Not Indicated VTE Drug Contraindication: N/A - Med Ordered
[2022-10-20 12:39] LABS: ABG Refer to POC result
[2022-10-20 12:42] LABS: ABG Base Excess 8.6 mmol/L; ABG HCO3 30 mmol/L (22-26); ABG pCO2 32 mmHg (32-45); ABG pH 7.59 (7.35-7.45); ABG pO2 77 mmHg (83-108)
[2022-10-20] MEDS: cloNIDine HCL 0.1 MG TABLET PO ×2 (12:43→22:07)
[2022-10-20] MEDS: Acetaminophen Supp 650 MG SUPP.RECT PR (12:43)
--- NOTE | 2022-10-20 12:56 | PC.NURSE ---
patient medicated with Tylenol suppository for temperature of 100.4 rectally and also IVP morphine as ordered PRN for restlessness . patient repositioned . patient continues on monitor . patient aware of plan of care .
[2022-10-20 14:02] LABS: Creatinine Clr Calc Pharmacy 66.5; Estimated Glomerular Filt Rate > 60
[2022-10-20] MEDS: vancomycin HCL 1,250 MG in 0.9 % Sodium Chloride 250 ML 166.67 MG IV (14:50)
[2022-10-20] MEDS: Lactated Ringers 1,000 ML 100 ML IVCONT (15:02)
[2022-10-20] MEDS: Enoxaparin Sodium 40 MG/0.4 ML SYRINGE SUBCUT (15:03)
[2022-10-20] MEDS: 0.9 % Sodium Chloride Flush 3 ML SYRINGE IVFLUSH (15:10)
--- NOTE | 2022-10-20 15:28 | PHA.PROG ---
Admission Date/Time: October 20, 2022 12:56 Indication: RESP INFECTION Weight in k.359 kg Adjusted body weight in Kg: [place] body weight in Kg: Obesity Dosing Indication % IBW: Serum Creatinine - Last 168 Hours 10/19/22 10/20/22 22:58 13:37 Creatinine 0.79 0.58 Estimated CrCl and GFR - Last 168 Hours 10/19/22 10/20/22 22:58 13:37 Estim Creat Clear Calc 48.8 66.5 Estimated GFR > 60 > 60 Vancomycin Loading Dose: 1250 MG Current Vancomycin Dosing Regimen: 1000MG Q24H Vancomycin Monitoring using AUC goal of 400 - 600 range with trough as surrogate marker: AUC 533, TROUGH 15.7 Date and Time for next Vancomycin Level to be drawn: 10/22 @1300 Pharmacist Comments on Vancomycin Plan: Vancomycin dosing will take advantage of [employer] as a clinical decision support tool that uses Bayesian modeling to calculate individual patient's pharmacokinetic parameters and forecast the patient's drug concentration time course with the target goal AUC 24 range of 400 - 600 mg/L/hr.
--- NOTE | 2022-10-20 15:42 | PC.NURSE ---
Administered 2mg of morphine IVP as ordered for increased restlessness . patient yelling and pulling at covers . patient repositioned . patient continues on monitor .
--- NOTE | 2022-10-20 22:10 | PC.NURSE ---
Pt medicated PO as ordered with no difficulty.
--- NOTE | 2022-10-20 22:35 | MHC.CM.PN ---
Addendum entered by Annabel Muniz 10/20/22 22:44: Pt was scheduled to begin chemo next week. Small cell lung CA with metastatic disease. Remains on high flow oxygen. Original Note: IMM 10/20. Reviewed with . Pt with AMS. On high flow oxygen. Advanced metastatic lung CA. Total collapse of Left lung. Now DNR/DNI. [facility] Oxygen via [employer] at 4L. No services. Had appointment with oncology in 2 days. Omnigy x4. HCP/ Carlos Elizondoignacio ([phone]). At this time, Carlos wants his to receive treatment, but nothing heroic. States he has said he goodbyes and does not think she will leave the hospital. Will be in to see in the morning. Wants her comfortable. Gently spoke with patient regarding hospice consult if his does go home. Carlos is not yet willing to consider hospice and wants to wait and see how his does in the hospital. Again he told CM that he thinks she will not go home. CM will follow for discharge needs and possible need for hospice consult.
[2022-10-21] VITALS (10 sets, daily range): BP systolic 106–133; BP diastolic 64–84; PULSE 67–100; RESP 12–98; TEMP 36.2–38.2; O2SAT 22–98; BMI 18.8
[2022-10-21] MEDS: Lactated Ringers 1,000 ML 100 ML IVCONT ×2 (00:20→13:06)
[2022-10-21] MEDS: 0.9 % Sodium Chloride Flush 3 ML SYRINGE IVFLUSH (00:21)
--- NOTE | 2022-10-21 02:02 | PC.NURSE ---
Pt sleeping at the bedside in no apparent distress. O2 sat 98% on high flow. VSS. Will continue to monitor.
--- NOTE | 2022-10-21 04:43 | PC.NURSE ---
RN to RN report given to MESERET Lamas. Pt being transferred to [facility] bed 484. Respiratory aware and will change high flow to a non-rebreather mask. Pt continues to be sleeping at the bedside in no apparent distress. VSS.
[2022-10-21] MEDS: levoFLOXacin/D5W 750 MG/150 ML PIGGYBACK 100 MG IV (05:20)
[2022-10-21 07:58] LABS: Hemoglobin 7.5 g/dl (12.0-16.0); PLT CLUMP 1; Red Cell Distribution Width 15.4 % (11.0-16.0)
[2022-10-21 08:00] LABS: Mean Corpuscular HGB Conc 32.6 g/dl (31.0-35.0); Mean Corpuscular Hemoglobin 28.6 pg (27.0-33.0); Mean Corpuscular Volume 87.8 fL (80.0-98.0); Mean Platelet Volume 10.2 fL (9.4-12.3); NRBC Pct Auto 2.4 /100WBC (0.0-0.2); Red Blood Count 2.62 X10*6/uL (4.20-5.50)
[2022-10-21 08:01] LABS: White Blood Count 6.1 X10*3/uL (4.8-10.8)
[2022-10-21 08:10] LABS: Platelet Count 18 X10*3/uL (160-400)
[2022-10-21 08:17] LABS: Creatinine Clr Calc Pharmacy 63.2; Estimated Glomerular Filt Rate > 60
[2022-10-21 08:27] LABS: Anion Gap 12 (12-20); Blood Urea Nitrogen 19 mg/dL (9-16); Carbon Dioxide 31 mmol/L (22-29); Chloride 107 mmol/L (96-108); Creatinine Clr Calc Pharmacy 64.2; Estimated Glomerular Filt Rate > 60; Glucose Random 127 mg/dL (60-115); Potassium 2.8 mmol/L (3.3-5.1); Sodium 147 mmol/L (135-145)
[2022-10-21 08:49] LABS: Calcium 8.1 mg/dL (8.4-10.2)
[2022-10-21] MEDS: cloNIDine HCL 0.1 MG TABLET PO ×4 (09:27→20:57)
[2022-10-21] MEDS: Potassium Chloride/H20 10 MEQ/100 ML PIGGYBACK 100 MEQ IV ×4 (10:55→14:53)
--- NOTE | 2022-10-21 12:10 | MHC.CLN ---
RE: CONSULT PT IS MODERATELY MALNOURISHED PT WITH MILDLY DEPLETED SUBCUTANEOUS FAT AND MUSCLE MASS, BMI 18 AND 11% SIGNIFICANT WT LOSS X 1 MONTH PT REMAINS NPO IF DIET TO ADVANCE, RECOMMEND ADDING ENSURE BID TO INCREASE KCALS SUPP TO PROVIDE 700KCALS, 40G PROTEIN FOLLOWING WITH TEAM SEE ALSO FULL CLINICAL NUTRITION ASSESSMENT
--- NOTE | 2022-10-21 14:47 | HO.PM.IMPN ---
Subjective Subjective Date of Service: 10/21/22 Interval History: More alert today. Tolerant of high-flow Review of Systems Unable to obtain due to patient's mentation Physical Exam Vital Signs: Vital Signs: Last Vital Signs Temp 100.8 F H 10/21/22 07:52 Pulse 86 10/21/22 07:52 Resp 98 H 10/21/22 11:29 BP 133/76 10/21/22 07:52 Pulse Ox 92 10/21/22 07:52 O2 Del Method 10/21/22 07:52 O2 Flow Rate 60 10/21/22 07:52 FiO2 40 10/21/22 07:52 Oxygen Flow Rate 5 10/19/22 22:21 BMI result Body Mass Index 18.8 Const: Other: Awake confused tolerant of high-flow O2 Resp: Other: Essentially absent breath sounds left lung. Diminished on right with coarse rhonchi Cardio: Other: No S4; positive S1-S2; no S3 murmurs rubs or gallops GI: Other: Soft nontender nondistended normoactive bowel sounds Extrem: Other: No edema Objective Data Active Medications Clonidine HCl (Clonidine Hcl 0.1 Mg Tablet) 0.1 mg PO QID [facility]; Protocol Last Admin: 10/21/22 09:27 Dose: 0.1 mg Documented By: ELIDIA Enoxaparin Sodium (Enoxaparin Sodium 40 Mg/0.4 Ml Syringe) 40 mg SUBCUT Q24H [facility] Last Admin: 10/20/22 15:03 Dose: 40 mg Documented By: TERRY Levofloxacin (Levaquin) 750 mg in 150 mls @ 100 mls/hr IV Q24H [facility] Last Infusion: 10/21/22 09:25 Dose: 0 mls/hr Documented By: ELIDIA Lactated Ringer's (Lr) 1,000 mls @ 100 mls/hr IVCONT .Q10H [facility] Last Admin: 10/21/22 13:06 Dose: 100 mls/hr Documented By: ELIDIA Vancomycin HCl 1,000 mg/ (Sodium Chloride) 270 mls @ 270 mls/hr IV Q24H [facility] Morphine Sulfate (Morphine Sulfate 2 Mg/Ml Cartridge) 2 mg IVPUSH Q2H PRN; Protocol PRN Reason: Restlessness Last Admin: 10/20/22 15:39 Dose: 2 mg Documented By: TERRY Pharmacy Consult (Consult Rx Vancomycin Dosing) 1 each MISCELLANE DAILY PRN PRN Reason: Consult order Sodium Chloride (0.9 % Sodium Chloride Flush 3 Ml Syringe) 3 ml IVFLUSH QSHIFT [facility] Last Admin: 10/21/22 07:11 Dose: Not Given Documented By: ELIDIA Non-Admin Reason: IV Running Labs 10/21/22 07:49 10/21/22 07:49 Labs: Laboratory Results - last 24 hr 10/21/22 10/21/22 10/21/22 07:49 07:49 07:49 MCV 87.8 MCH 28.6 MCHC 32.6 RDW 15.4 Plt Count 18 L* D MPV 10.2 Absolute Nucleated RBC 0.150 H Nucleated RBC % (auto) 2.4 H Anion Gap 12 Estim Creat Clear Calc 64.2 63.2 Estimated GFR > 60 > 60 Random Glucose 127 H Calcium 8.1 L D Microbiology Microbiology Results: Microbiology 10/19/22 23:11 Blood Culture - Preliminary Blood - Venous No growth after 24 hours. 10/19/22 22:58 Blood Culture - Preliminary Blood - Venous No growth after 24 hours. Assessment and Plan (1) Postobstructive pneumonia: Status: Acute (2) Small cell lung cancer: Status: Acute (3) Anemia: Status: Acute Plan Pt is a 67-year-old female with a PMH significant for?small cell lung cancer diagnosed three months ago followed by Dr. Phillips, COPD, osteopenia, and depression who presents to the ED from home after 4 days of altered mental status and increasing difficulty breathing. Pt will be admitted to the hospital acute respiratory failure in setting of obstructive pneumonia due to small cell lung cancer. 1.Acute respiratory failure in the setting of obstructive pneumonia -Continue hi-flow -Levofloxacin/V (2)anco -Solu-medrol 60mg q6 -IVF -Morphine 2mg q2 for pain management 2.Small small lung cancer CT shows evidence of likely metastasis to mediastinal lymph nodes... Poor prognosis Followed by Dr. Phillips 3.Anemia -responding to therapies -will discuss transfusion with Aftab torres DNI/DNR Attending: Dr. Blount? DVT Prophylaxis: Lovenox Pt will require a hospitalization of at least two nights for treatment of?acute respiratory failure in the setting of obstructive pneumonia likely secondary to small cell cancer. Time Spent With Patient Time: Total time managing care of this patient today ____ minutes. Quality Stroke Does the patient have a stroke diagnosis?: No VTE Prior VTE?: No VTE Risk Level:: Medical - moderate - high VTE Device Contraindication: Treatment Not Indicated VTE Drug Contraindication: N/A - Med Ordered
[2022-10-21] MEDS: vancomycin HCL 1,000 MG in 0.9 % Sodium Chloride 250 ML 270 MG IV (14:51)
[2022-10-21] MEDS: Enoxaparin Sodium 40 MG/0.4 ML SYRINGE SUBCUT (14:51)
--- NOTE | 2022-10-21 16:56 | MHC.SL.SWA ---
Addendum entered and electronically signed by Khadijah Park MA, [facility]-PERSONAL CARE WORKER 10/21/22 17:19: D.S. Original Note: Speech Pathologist Impression: Oropharyngeal Phase Dysphagia Risk of Aspiration Due to: Medically Fragile History of Pneumonia Reduced Cognition Dysphasia Diet Status: UPGRADE Liquid Consistency and Strategies for Safe Swallow: Liquid Intake Recommendation: Zemple Thick Liquid Intake Strategies: Small Sips No Straws Liquids by Teaspoon Only Solid Food Consistency: Dietary Recommendations: Pureed (NDD1) Oral Medication Intake: Crushed with Puree (when possible) Please contact the pharmacy regarding appropriate crushable or liquid drug formulations that are available whenever modified delivery is recommended. Compensatory Strategies and Precautions to be Taken for Safe Swallow: Sitting Upright (90 deg) No Straw Liquids from Spoon Small Bites and Sips Alternate Liquids/Solids Oral Check Supervision While Eating and Drinking for Safe Swallow: Total Assistance (1:1) Swallowing Recommended Treatments: Compens. Strategy Educat. Recommendation for Speech: Outpatient Speech Therapy Inpatient Speech Therapy Comment: Recomend pt UPGRADE to PUREED solids and NECTAR THICK liquids (via teaspoon). Larger pills crushed in puree when possible. Smaller pills whole in puree. Pt requires 1-1 assist feeding and intermittent cues to swallow. Recommend small 1/2 teaspoon bites and sips. Encourage pt to assist w/ feeding. Pt at risk for aspiration w/ HFNC. Recommend oral care routine and aspiration precautions. RN and MD updated via [employer]. Pt's diet recommendations written on white board. PERSONAL CARE WORKER to continue to follow during hospitalization. Gas Line Servicer Clinican/Clinical Fellow: Yes: Simin Freeman M.A., [facility]-PERSONAL CARE WORKER Supervisory Statement: I have reviewed and agree with the student/clinical fellow's documentation: Speech Language Pathologist:
[2022-10-22] VITALS (17 sets, daily range): BP systolic 113–158; BP diastolic 68–104; PULSE 73–103; RESP 16–22; TEMP 36.7–37.7; O2SAT 90–94
[2022-10-22] MEDS: Lactated Ringers 1,000 ML 100 ML IVCONT ×2 (02:21→12:36)
[2022-10-22] MEDS: levoFLOXacin/D5W 750 MG/150 ML PIGGYBACK 100 MG IV (05:31)
[2022-10-22 07:18] LABS: Creatinine Clr Calc Pharmacy 57.5; Estimated Glomerular Filt Rate > 60
[2022-10-22] MEDS: cloNIDine HCL 0.1 MG TABLET PO ×4 (08:10→21:12)
[2022-10-22] MEDS: 0.9 % Sodium Chloride Flush 3 ML SYRINGE IVFLUSH ×3 (08:13→23:47)
[2022-10-22 09:07] LABS: Hematocrit 22.6 % (37.0-47.0); Hemoglobin 7.5 g/dl (12.0-16.0); Mean Corpuscular HGB Conc 33.2 g/dl (31.0-35.0); Mean Corpuscular Volume 87.3 fL (80.0-98.0); Mean Platelet Volume 9.9 fL (9.4-12.3); Red Blood Count 2.59 X10*6/uL (4.20-5.50); Red Cell Distribution Width 15.3 % (11.0-16.0); White Blood Count 7.5 X10*3/uL (4.8-10.8)
[2022-10-22 09:23] LABS: NRBC Pct Auto 3.1 /100WBC (0.0-0.2); Platelet Count 17 X10*3/uL (160-400)
[2022-10-22 09:40] LABS: Band Neutrophils Percent 4 % (3-5); Eosinophils Absolute Manual 0.1 X10*3/uL (0.0-0.4); Eosinophils Percent Manual 1 % (0-4); Lymphocytes Absolute Manual 1.4 X10*3/uL (1.2-4.9); Lymphocytes Percent Manual 18 % (20-40); Metamyelocytes Absolute 0.1 X10*3/uL; Metamyelocytes Percent 1 %; Monocytes Absolute Manual 0.1 X10*3/uL (0.1-1.2); Monocytes Percent Manual 1 % (2-11); Neutrophils Absolute Manual 5.9 X10*3/uL (2.0-8.3); Neutrophils Percent Manual 75 % (45-73); Nucleated Red Blood Cells 8 /100WBC (0-0)
[2022-10-22 09:44] LABS: RBC Morphology NOTED; Schistocytes 1+ (0-2) /OIF; Spherocytes 1+ (0-2) /OIF
[2022-10-22 09:45] LABS: Burr Cells 2+ (3-5) /OIF
[2022-10-22 09:46] LABS: Platelet Estimate DECREASED (NORMAL); Platelet Morphology Comment NORMAL
[2022-10-22 09:56] LABS: Alanine Aminotransferase 83 U/L (0-31); Albumin Level 2.7 g/dL (3.5-5.0); Alkaline Phosphatase 159 U/L (39-117); Anion Gap 12 (12-20); Aspartate Amino Transferase 192 U/L (5-31); Bilirubin Total 3.5 mg/dL (0.0-1.0); Blood Urea Nitrogen 22 mg/dL (9-16); Calcium 8.4 mg/dL (8.4-10.2); Carbon Dioxide 26 mmol/L (22-29); Chloride 106 mmol/L (96-108); Creatinine Clr Calc Pharmacy 55.8; Estimated Glomerular Filt Rate > 60; Glucose Random 164 mg/dL (60-115); Potassium 3.6 mmol/L (3.3-5.1); Sodium 140 mmol/L (135-145); Total Protein 4.4 g/dL (6.5-8.0)
[2022-10-22] MEDS: Morphine Sulfate 2 MG/ML CARTRIDGE IVPUSH ×2 (10:03→12:36)
--- NOTE | 2022-10-22 12:32 | P.PNIM_ITS ---
Subjective Subjective Date of Service: 10/22/22 Interval History: More alert this a.m. however still considerable respiratory distress. Review of Systems Unable to obtain due to patient's mentation Physical Exam Vital Signs: Vital Signs: Last Vital Signs Temp 99.1 F 10/22/22 12:00 Pulse 102 H 10/22/22 12:00 Resp 16 10/22/22 12:00 BP 125/84 10/22/22 12:00 Pulse Ox 92 10/22/22 12:00 O2 Del Method 10/22/22 12:00 O2 Flow Rate 30 10/22/22 12:00 FiO2 30 10/22/22 12:00 Oxygen Flow Rate 5 10/19/22 22:21 BMI result Body Mass Index 18.8 Const: Other: Awake confused tolerant of high-flow O2 Resp: Other: Essentially absent breath sounds left lung. Diminished on right with coarse rhonchi Cardio: Other: No S4; positive S1-S2; no S3 murmurs rubs or gallops GI: Other: Soft nontender nondistended normoactive bowel sounds Extrem: Other: No edema Objective Data Active Medications Clonidine HCl (Clonidine Hcl 0.1 Mg Tablet) 0.1 mg PO QID [facility]; Protocol Last Admin: 10/22/22 08:10 Dose: 0.1 mg Documented By: JOE Enoxaparin Sodium (Enoxaparin Sodium 40 Mg/0.4 Ml Syringe) 40 mg SUBCUT Q24H [facility] Last Admin: 10/21/22 14:51 Dose: 40 mg Documented By: ELIDIA Levofloxacin (Levaquin) 750 mg in 150 mls @ 100 mls/hr IV Q24H [facility] Last Infusion: 10/22/22 07:15 Dose: 0 mls/hr Documented By: JOE Lactated Ringer's (Lr) 1,000 mls @ 100 mls/hr IVCONT .Q10H [facility] Last Admin: 10/22/22 02:21 Dose: 100 mls/hr Documented By: CLIFFORD Vancomycin HCl 1,000 mg/ (Sodium Chloride) 270 mls @ 270 mls/hr IV Q24H [facility] Last Infusion: 10/21/22 17:08 Dose: 0 mls/hr Documented By: ELIDIA Morphine Sulfate (Morphine Sulfate 2 Mg/Ml Cartridge) 2 mg IVPUSH Q2H PRN; Protocol PRN Reason: Restlessness Last Admin: 10/22/22 10:03 Dose: 2 mg Documented By: JOE Pharmacy Consult (Consult Rx Vancomycin Dosing) 1 each MISCELLANE DAILY PRN PRN Reason: Consult order Sodium Chloride (0.9 % Sodium Chloride Flush 3 Ml Syringe) 3 ml IVFLUSH QSHIFT [facility] Last Admin: 10/22/22 08:13 Dose: 3 ml Documented By: JOE Labs 10/22/22 09:00 10/22/22 09:00 Labs: Laboratory Results - last 24 hr 10/20/22 10/21/22 10/22/22 01:41 07:49 05:59 MCV MCH MCHC RDW Plt Count MPV Immature Gran % (Auto) Neut % (Auto) Lymph % (Auto) [place] % (Auto) Eos % (Auto) Baso % (Auto) Lymph # (Auto) [place] # (Auto) Eos # (Auto) Baso # (Auto) Abs Immat Gran (auto) Absolute Neuts (auto) Absolute Nucleated RBC Nucleated RBC % (auto) Neutrophils % (Manual) Band Neutrophils % Lymphocytes % (Manual) Monocytes % (Manual) Eosinophils % (Manual) Metamyelocytes % Abs Neuts (Manual) Lymphocytes # (Manual) Monocytes # (Manual) Eosinophils # (Manual) Metamyelocytes # Nucleated RBCs Platelet Estimate Plt Morphology Comment RBC Morphology Spherocytes Aneta Cells Schistocytes Smear Path Review Cancelled Anion Gap Estim Creat Clear Calc 57.5 Estimated GFR > 60 Random Glucose Calcium Total Bilirubin AST ALT Alkaline Phosphatase Total Protein Albumin Blood Type O Positive Antibody Screen NEGATIVE Crossmatch See Detail 10/22/22 10/22/22 09:00 09:00 MCV 87.3 MCH 29.0 MCHC 33.2 RDW 15.3 Plt Count 17 L* MPV 9.9 Immature Gran % (Auto) Cancelled Neut % (Auto) Cancelled Lymph % (Auto) Cancelled [place] % (Auto) Cancelled Eos % (Auto) Cancelled Baso % (Auto) Cancelled Lymph # (Auto) Cancelled [place] # (Auto) Cancelled Eos # (Auto) Cancelled Baso # (Auto) Cancelled Abs Immat Gran (auto) Cancelled Absolute Neuts (auto) Cancelled Absolute Nucleated RBC 0.230 H Nucleated RBC % (auto) 3.1 H Neutrophils % (Manual) 75 H Band Neutrophils % 4 Lymphocytes % (Manual) 18 L Monocytes % (Manual) 1 L Eosinophils % (Manual) 1 Metamyelocytes % 1 Abs Neuts (Manual) 5.9 Lymphocytes # (Manual) 1.4 Monocytes # (Manual) 0.1 Eosinophils # (Manual) 0.1 Metamyelocytes # 0.1 Nucleated RBCs 8 H Platelet Estimate DECREASED Plt Morphology Comment NORMAL RBC Morphology NOTED Spherocytes 1+ (0-2) Aneta Cells 2+ (3-5) Schistocytes 1+ (0-2) Smear Path Review Anion Gap 12 Estim Creat Clear Calc 55.8 Estimated GFR > 60 Random Glucose 164 H Calcium 8.4 Total Bilirubin 3.5 H AST 192 H ALT 83 H Alkaline Phosphatase 159 H Total Protein 4.4 L Albumin 2.7 L Blood Type Antibody Screen Crossmatch Microbiology Microbiology Results: Microbiology 10/19/22 23:11 Blood Culture - Preliminary Blood - Venous No growth after 48 hours. 10/19/22 22:58 Blood Culture - Preliminary Blood - Venous No growth after 48 hours. Assessment and Plan (1) Acute and chronic respiratory failure: Status: Acute (2) Small cell lung cancer: Status: Acute (3) Anemia: Status: Acute Plan Pt is a 67-year-old female with a PMH significant for?small cell lung cancer diagnosed three months ago followed by Dr. Phillips, COPD, osteopenia, and depression who presents to the ED from home after 4 days of altered mental status and increasing difficulty breathing. Pt will be admitted to the hospital acute respiratory failure in setting of obstructive pneumonia due to small cell lung cancer. 1.Acute respiratory failure in the setting of obstructive pneumonia -Continue hi-flow -Levofloxacin/Vanco (3) -Solu-medrol 60mg q6 -IVF -Morphine 2mg q2 for pain management 2.Small small lung cancer -CT shows evidence of likely metastasis to mediastinal lymph nodes... Poor prognosis -responding to therapies. 3.Anemia -transfuse 2 units packed red cells DNI/DNR Attending: Dr. Blount? DVT Prophylaxis: Lovenox Pt will require a hospitalization of at least two nights for treatment of?acute respiratory failure in the setting of obstructive pneumonia likely secondary to small cell cancer. Time Spent With Patient Time: Total time managing care of this patient today ____ minutes. Quality Stroke Does the patient have a stroke diagnosis?: No VTE Prior VTE?: No VTE Risk Level:: Medical - moderate - high VTE Device Contraindication: Treatment Not Indicated VTE Drug Contraindication: N/A - Med Ordered
[2022-10-22] MEDS: Enoxaparin Sodium 40 MG/0.4 ML SYRINGE SUBCUT (13:00)
[2022-10-22 13:32] LABS: Vancomycin Random 9.8 mcg/mL (15-20)
--- NOTE | 2022-10-22 13:39 | HE.PHANOTE ---
Vancomycin Dosing Addendum continue with current regimen... vancomycin level 9.8 after 2 doses. next level 10/23/22 @1300
[2022-10-22] MEDS: vancomycin HCL 1,000 MG in 0.9 % Sodium Chloride 250 ML 270 MG IV (15:25)
[2022-10-23] VITALS (18 sets, daily range): BP systolic 136–158; BP diastolic 80–97; PULSE 64–91; RESP 15–28; TEMP 36.7–37.2; O2SAT 90–94
[2022-10-23] MEDS: levoFLOXacin/D5W 750 MG/150 ML PIGGYBACK 100 MG IV (05:14)
[2022-10-23] MEDS: Morphine Sulfate 2 MG/ML CARTRIDGE IVPUSH ×5 (05:38→22:05)
[2022-10-23 06:48] LABS: Creatinine Clr Calc Pharmacy 55.8; Estimated Glomerular Filt Rate > 60
[2022-10-23 08:26] LABS: Alanine Aminotransferase 87 U/L (0-31); Albumin Level 2.6 g/dL (3.5-5.0); Alkaline Phosphatase 166 U/L (39-117); Anion Gap 15 (12-20); Aspartate Amino Transferase 176 U/L (5-31); Bilirubin Total 3.7 mg/dL (0.0-1.0); Blood Urea Nitrogen 23 mg/dL (9-16); Calcium 8.2 mg/dL (8.4-10.2); Carbon Dioxide 24 mmol/L (22-29); Chloride 108 mmol/L (96-108); Creatinine Clr Calc Pharmacy 56.7; Estimated Glomerular Filt Rate > 60; Glucose Random 156 mg/dL (60-115); Potassium 3.3 mmol/L (3.3-5.1); Sodium 144 mmol/L (135-145); Total Protein 4.3 g/dL (6.5-8.0)
[2022-10-23] MEDS: cloNIDine HCL 0.1 MG TABLET PO ×4 (10:29→21:04)
[2022-10-23] MEDS: Lactated Ringers 1,000 ML 100 ML IVCONT ×2 (10:29→18:46)
[2022-10-23] MEDS: 0.9 % Sodium Chloride Flush 3 ML SYRINGE IVFLUSH ×3 (10:29→21:05)
[2022-10-23 13:23] LABS: Vancomycin Trough 11.6 mcg/mL (10.0-20.0)
--- NOTE | 2022-10-23 13:36 | P.PNIM_ITS ---
Subjective Subjective Date of Service: 10/23/22 Interval History: Initially improved somewhat with therapies however today respiratory rate creeping up requiring morphine Review of Systems Unable to obtain due to patient's mentation Physical Exam Vital Signs: Vital Signs: Last Vital Signs Temp 99.0 F 10/23/22 11:24 Pulse 82 10/23/22 11:24 Resp 28 H 10/23/22 11:24 BP 146/91 H 10/23/22 11:24 Pulse Ox 93 10/23/22 11:24 O2 Del Method 10/23/22 11:24 O2 Flow Rate 30 10/23/22 02:57 FiO2 30 10/23/22 02:57 Oxygen Flow Rate 5 10/19/22 22:21 BMI result Body Mass Index 18.8 Const: Other: Awake confused tolerant of high-flow O2 Resp: Other: Essentially absent breath sounds left lung. Diminished on right with coarse rhonchi Cardio: Other: No S4; positive S1-S2; no S3 murmurs rubs or gallops GI: Other: Soft nontender nondistended normoactive bowel sounds Extrem: Other: No edema Objective Data Active Medications Clonidine HCl (Clonidine Hcl 0.1 Mg Tablet) 0.1 mg PO QID [facility]; Protocol Last Admin: 10/23/22 10:29 Dose: 0.1 mg Documented By: OMERO Enoxaparin Sodium (Enoxaparin Sodium 40 Mg/0.4 Ml Syringe) 40 mg SUBCUT Q24H [facility] Last Admin: 10/22/22 13:00 Dose: 40 mg Documented By: JOE Levofloxacin (Levaquin) 750 mg in 150 mls @ 100 mls/hr IV Q24H [facility] Last Infusion: 10/23/22 06:48 Dose: 0 mls/hr Documented By: ATA Vancomycin HCl 1,000 mg/ (Sodium Chloride) 270 mls @ 270 mls/hr IV Q24H [facility] Last Infusion: 10/22/22 16:34 Dose: 0 mls/hr Documented By: WESLY Lactated Ringer's (Lr) 1,000 mls @ 100 mls/hr IVCONT .Q10H [facility] Last Admin: 10/23/22 10:29 Dose: 100 mls/hr Documented By: OMERO Morphine Sulfate (Morphine Sulfate 2 Mg/Ml Cartridge) 2 mg IVPUSH Q2H PRN; Protocol PRN Reason: Restlessness Last Admin: 10/23/22 10:28 Dose: 2 mg Documented By: OMERO Pharmacy Consult (Consult Rx Vancomycin Dosing) 1 each MISCELLANE DAILY PRN PRN Reason: Consult order Sodium Chloride (0.9 % Sodium Chloride Flush 3 Ml Syringe) 3 ml IVFLUSH QSHIFT [facility] Last Admin: 10/23/22 10:29 Dose: 3 ml Documented By: OMERO Labs 10/22/22 09:00 10/23/22 07:49 Labs: Laboratory Results - last 24 hr 10/20/22 10/23/22 10/23/22 01:41 05:50 07:49 Anion Gap 15 Estim Creat Clear Calc 55.8 56.7 Estimated GFR > 60 > 60 Random Glucose 156 H Calcium 8.2 L Total Bilirubin 3.7 H AST 176 H ALT 87 H Alkaline Phosphatase 166 H Total Protein 4.3 L Albumin 2.6 L Vancomycin Trough Blood Type O Positive Antibody Screen NEGATIVE Crossmatch See Detail 10/23/22 12:54 Anion Gap Estim Creat Clear Calc Estimated GFR Random Glucose Calcium Total Bilirubin AST ALT Alkaline Phosphatase Total Protein Albumin Vancomycin Trough 11.6 Blood Type Antibody Screen Crossmatch Assessment and Plan (1) Acute and chronic respiratory failure: Status: Acute (2) Postobstructive pneumonia: Status: Acute (3) Small cell lung cancer: Status: Acute (4) Anemia: Status: Acute Plan Pt is a 67-year-old female with a PMH significant for?small cell lung cancer diagnosed three months ago followed by Dr. Phillips, COPD, osteopenia, and depression who presents to the ED from home after 4 days of altered mental status and increasing difficulty breathing. Pt will be admitted to the hospital acute respiratory failure in setting of obstructive pneumonia due to small cell lung cancer. 1.Acute respiratory failure in the setting of obstructive pneumonia -Continue hi-flow -Levofloxacin/Vanco (4) -Solu-medrol 60mg q6 -IVF -Morphine 2mg q2 for pain management... 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 Poor prognosis 3.Anemia -good response to blood -follow clinically DNI/DNR Attending: Dr. Blount? DVT Prophylaxis: Lovenox Pt will require a hospitalization for treatment of?acute respiratory failure in the setting of obstructive pneumonia likely secondary to small cell cancer. Time Spent With Patient Time: Total time managing care of this patient today ____ minutes. Quality Stroke Does the patient have a stroke diagnosis?: No VTE Prior VTE?: No VTE Risk Level:: Medical - moderate - high VTE Device Contraindication: Treatment Not Indicated VTE Drug Contraindication: N/A - Med Ordered
[2022-10-23] MEDS: Enoxaparin Sodium 40 MG/0.4 ML SYRINGE SUBCUT (14:10)
[2022-10-23] MEDS: vancomycin HCL 1,000 MG in 0.9 % Sodium Chloride 250 ML 270 MG IV (15:24)
[2022-10-23] MEDS: LORazepam 2 MG/ML VIAL 1 MG IVPUSH (22:41)
[2022-10-23] MEDS: HYDROmorphone HCl 2 MG/ML VIAL 1 MG IVPUSH (22:41)
--- NOTE | 2022-10-23 23:17 | PM.EVENT ---
Event Note Date of Service: 10/23/22 Event Note: I was asked by nurse to see pt as she was requesting to be made comfortable. i went and spoke to the pt, she is alert, oriented to self place and situation. she states that she feels like she is drowning and wants me to help her be comfortable. I explained extensively the temr comfort and the pt reports that she does not want any further treatment and just wants to pass peacefully but comfortablly. I spoke to and explained her wishes. 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 Time Spent With Patient Time: Total time managing care of this patient today ____ minutes.
--- NOTE | 2022-10-23 23:22 | PC.NURSE ---
Upon assessment patient axox3. Patient DNR/DNI. Satting 88-90% on high flow. Patient stating I want to someone help me please. I am choking and suffering. Dr. Gusman notified, came to bedside to assess. Patient alert and oriented enough to make her own decisions per hospitalist. Dr. Gusman explained to patient what COCKTAIL SERVER means, patient verbalized understanding and stated that is what she wants. Hospitalist ordered comfort medications. Dr. Gusman notified . Will notify if there are any changes in patient status.
[2022-10-24] VITALS (11 sets, daily range): BP systolic 120; BP diastolic 69; PULSE 62–102; RESP 16–25; TEMP 36.8; O2SAT 90–94
--- NOTE | 2022-10-24 04:18 | PC.NURSE ---
Patient resting comfortably, unresponsive to name or touch. No restlessness or facial grimacing. Last dose of dilaudid 1mg given at 2241. Dr. Gusman ordered to hold all PRNs unless patient starts waking up. All vitals stable.
[2022-10-24] MEDS: Morphine Sulfate 2 MG/ML CARTRIDGE IVPUSH (06:29)
[2022-10-24] MEDS: LORazepam 2 MG/ML VIAL 0.5 MG IVPUSH (06:34)
--- NOTE | 2022-10-24 07:30 | PC.NURSE ---
Assumed care of patient at this time. Patient resting comfortably. See assessments for futher details.
[2022-10-24] MEDS: 0.9 % Sodium Chloride Flush 3 ML SYRINGE IVFLUSH ×3 (07:42→23:40)
--- NOTE | 2022-10-24 07:48 | P.CDIC_ITS ---
CDI Concurrent Query Documentation Clarification: PHYSICIAN'S DOCUMENTATION REQUEST Date of Query: 10/24/22 0749 Patient Name: Isabella Luz Admit Date: 10/20/22 Dear Doctor, A review of the medical record indicates additional documentation may be needed. Please review below and update the documentation accordingly. Clinical Indicators: Business Intelligence Architect documentation includes the diagnosis of malnutrition. Can you please confirm or rule out this diagnosis based on the findings below: Risk Factors/Clinical Indicators/Treatments Per production counter consult on 10/21: PT IS MODERATELY MALNOURISHED PT WITH MILDLY DEPLETED SUBCUTANEOUS FAT AND MUSCLE MASS, BMI 18 AND 11% SIGNIFICANT WT LOSS X 1 MONTH Per ED note on 10/20: complaining of feeling very weak BMI: 18.9 Weight: 45.359kg Height: 5ft 1in If possible, please provide in your progress notes, additional specificity regarding the severity of the malnutrition using the above information: * Moderate * Severe * Other (please specify) * Unable to determine Use of terms such as suspected, likely, concern for, or probable (associated with a specific diagnosis that is being evaluated, monitored, or treated as if it exists) are acceptable and can be coded in the inpatient setting, when documented at the time of discharge. Thank you, Kaylee Hoff MS, RN, CCRN Extension: [phone] Please use your independent medical judgment in providing your response. THIS QUERY IS PART OF THE PERMANENT MEDICAL RECORD
--- NOTE | 2022-10-24 07:54 | P.CDIC_ITS ---
CDI Concurrent Query Documentation Clarification: PHYSICIAN'S DOCUMENTATION REQUEST Date of Query: 10/24/22 0754 Patient Name: Isabella Luz Admit Date: 10/20/22 Dear Doctor, A review of the medical record indicates additional documentation may be needed. Please review below and update the documentation accordingly. Clinical Indicators: A diagnosis of anemia (unspecified) was made on 10/19/22 but lacks specificity. Is there further clarification/specificity that correlates with the findings below: Risk Factors/Clinical Indicators/Treatments Per provider H&P on 10/20: Anemia Patient has progressive anemia for the past month Per provider progress note on 10/22: Anemia -transfuse 2 units packed red cells Other indicators: -PMH of anemia -Patient received 2 units of RBCs no 10/09 4 & 1 unit of RBCs on 10/20 -10/19: Hgb/Hct - 7.9/24.7 -10/21: Hgb/Hct - 7.5/23.0 -10/22: Hgb/Hct/Plts - 7.5/22.6/17 Based on the above, could you clarify in the Progress Notes which of the following is the most likely type of anemia you are evaluating, treating, and/or monitoring? * Acute blood loss anemia with baseline chronic anemia (specify type) * Acute blood loss anemia * Other ? please specify * Unable to determine Use of terms such as suspected, likely, concern for, or probable (associated with a specific diagnosis that is being evaluated, monitored, or treated as if it exists) are acceptable and can be coded in the inpatient setting, when documented at the time of discharge. Thank you, Kaylee Hoff MS, RN, CCRN Extension: [phone] Please use your independent medical judgment in providing your response. 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
--- NOTE | 2022-10-24 08:04 | P.CDIC_ITS ---
CDI Concurrent Query Documentation Clarification: PHYSICIAN'S DOCUMENTATION REQUEST Date of Query: 10/24/22 0804 Patient Name: Isabella Luz Admit Date: 10/20/22 Dear Doctor, A review of the medical record indicates additional documentation may be needed. Please review below and update the documentation accordingly. Clinical Indicators: A diagnosis of respiratory failure was made on 10/20/22 but lacks subsequent d ocumentation and specificity. Is there further clarification/specificity that correlates with the findings below: Risk Factors/Clinical Indicators/Treatments Per provider H&P on 10/20/22: Patient was found hypoxic satting in the 70s on RA. Patient was satting at 85% on 3 L of O2, increased to 5L satting in the low 90s, then became hypoxic again.?O2 increased to 5-6 L without much effect. Per provider progress notes: Acute respiratory failure -Continue hi-flow -Levofloxacin/Vanco (4) -Solu-medrol 60mg q6 Other indicators: -Patient with tachypnea -Patient with frequent espisodes of low 02 sat -Patient O2 needs increasing -Blood gas on 10/20: pH: 7.59 CO2: 32 O2: 77 HCO3: 30 Clarify which of the following accurately represents the patient's respiratory status: * Acute respiratory failure * Acute on chronic respiratory failure * Other (please specify) * Unable to determine Please include type if known: * Hypoxic * Hypercapnic * Hypoxic and hypercapnic * Unable to determine Use of terms such as suspected, likely, concern for, or probable (associated with a specific diagnosis that is being evaluated, monitored, or treated as if it exists) are acceptable and can be coded in the inpatient setting, when documented at the time of discharge. Thank you, Kaylee Hoff MS, RN, CCRN Extension: [phone] Please use your independent medical judgment in providing your response. THIS QUERY IS PART OF THE PERMANENT MEDICAL RECORD
--- NOTE | 2022-10-24 08:20 | P.CDIC_ITS ---
CDI Concurrent Query Documentation Clarification: PHYSICIAN'S DOCUMENTATION REQUEST Date of Query: 10/24/22 08 Patient Name: Isabella Luz Admit Date: 10/20/22 Dear Doctor, A review of the medical record indicates additional documentation may be needed. Please review below and update the documentation accordingly. Clinical Indicators: Is there a diagnosis that correlates with the findings below: Risk Factors/Clinical Indicators/Treatments Per provider H&P on 10/20/22: Patient's oxygen saturation dropped to 87-89% on 6L.? We attempted CPAP not as rescue but to help with the atelectasis, but patient did not tolerate the CPAP mask Per provider progress notes: Acute respiratory failure -Continue hi-flow -Levofloxacin/Vanco (4) -Solu-medrol 60mg q6 Other indicators: -Patient with tachypnea -Patient with frequent espisodes of low 02 sat -Patient O2 needs increasing -Blood gas on 10/20: pH: 7.59 CO2: 32 O2: 77 HCO3: 30 Clarify which of the following accurately represents the patient's respiratory status: * Alkalosis (please specify type- metabolic, respiratory, etc.) * Other (please specify) * Unable to determine Use of terms such as suspected, likely, concern for, or probable (associated with a specific diagnosis that is being evaluated, monitored, or treated as if it exists) are acceptable and can be coded in the inpatient setting, when documented at the time of discharge. Thank you, Kaylee Hoff MS, RN, CCRN Extension: [phone] Please use your independent medical judgment in providing your response. THIS QUERY IS PART OF THE PERMANENT MEDICAL RECORD
--- NOTE | 2022-10-24 08:26 | MHC.CDI.CONC ---
CDI Concurrent Query Documentation Clarification: PHYSICIAN'S DOCUMENTATION REQUEST Date of Query: 10/24/22 0827 Patient Name: Isabella Luz Admit Date: 10/20/22 Dear Doctor, A review of the medical record indicates additional documentation may be needed. Please review below and update the documentation accordingly. Clinical Indicators: Is there a diagnosis that correlates with the findings below: Risk Factors/Clinical Indicators/Treatments POA/RESOLVED/TREAT/RULE OUT Per ED note on 10/19: Clinical impression: Encephalopathy Patient seems that she has been getting more confused and short of breath Per provider H&P on 10/20: Altered mental status Alert to person only, uncomfortable and agitated. Per RN shift assessments: Patient disoriented to place, time, & situation & is confused & vague Other indicators: -Patient with electrolyte imbalances -Patient being treated for PNA & ARF Based on the above, could you clarify in the Progress Notes which, if any of the following, is the most likely etiology of the confusion/altered mental status? Encephalopathy - indicate type such as metabolic, toxic, etc. was present on admission and is now resolved Encephalopathy - indicate type such as metabolic, toxic, etc. was present on admission and is still being monitored, evaluated, or treated Encephalopathy - indicate type such as metabolic, toxic, etc. is still a likely, suspected, probable diagnosis Encephalopathy - indicate type such as metabolic, toxic, etc. was ruled out Other etiology (please specify) Unable to determine Use of terms such as suspected, likely, concern for, or probable (associated with a specific diagnosis that is being evaluated, monitored, or treated as if it exists) are acceptable and can be coded in the inpatient setting, when documented at the time of discharge. Thank you, Kaylee Hoff, MS, RN, CCRN Extension: [phone] Please use your independent medical judgment in providing your response. 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
--- NOTE | 2022-10-24 08:42 | P.CDIC_ITS ---
CDI Concurrent Query Documentation Clarification: PHYSICIAN'S DOCUMENTATION REQUEST Date of Query: 10/24/22 0842 Patient Name: Isabella Luz Admit Date: 10/20/22 Dear Doctor, A review of the medical record indicates additional documentation may be needed. Please review below and update the documentation accordingly. Clinical Indicators: Risk Factors/Clinical Indicators/Treatments Clarify which of the following accurately represents the patient's respiratory status: * COPD exacerbation * Other (please specify) * Unable to determine Use of terms such as suspected, likely, concern for, or probable (associated with a specific diagnosis that is being evaluated, monitored, or treated as if it exists) are acceptable and can be coded in the inpatient setting, when documented at the time of discharge. Thank you, Kaylee Hoff MS, RN, CCRN Extension: [phone] Please use your independent medical judgment in providing your response. THIS QUERY IS PART OF THE PERMANENT MEDICAL RECORD
[2022-10-24] MEDS: Morphine Sulfate 4 MG/ML CARTRIDGE IVPUSH (10:22)
--- NOTE | 2022-10-24 11:10 | MHC.CM.PN ---
Per ROUNDS discussion, Patient became PERFUMER as of last night; CM will follow.
--- NOTE | 2022-10-24 11:11 | P.PNIM_ITS ---
Subjective Subjective Date of Service: 10/24/22 Interval History: transitioned to CHEMISTRY LABORATORY TECHNICIAN care overnight at bedside, updated Review of Systems Review of Systems: Yes Unobtainable due to mental status Physical Exam Vital Signs: Vital Signs: Last Vital Signs Temp 98.3 F 10/24/22 04:17 Pulse 62 10/24/22 07:36 Resp 17 10/24/22 07:36 BP 120/69 10/24/22 04:17 Pulse Ox 94 10/24/22 07:36 O2 Del Method 10/24/22 07:36 O2 Flow Rate 40 10/24/22 04:17 FiO2 45 10/24/22 04:17 Oxygen Flow Rate 5 10/19/22 22:21 BMI result Body Mass Index 18.8 Gen: somnolent Lungs: diminished throughout Heart: regular rate and rhythm Abd: soft, non-tender Ext: no edema Skin: warm/well-perfused Neuro: somnolent Objective Data Active Medications Morphine Sulfate (Morphine Sulfate/Ns) 100 mg in 100 mls @ 0 mls/hr IVCONT .Q0M [facility]; Protocol Lorazepam (Lorazepam 2 Mg/Ml Vial) 0.5 mg IVPUSH Q4H PRN PRN Reason: anxiety/restlessness Last Admin: 10/24/22 06:34 Dose: 0.5 mg Documented By: ERIKA Ondansetron HCl (Ondansetron Hcl 4 Mg/2 Ml Vial) 4 mg IVPUSH Q8H PRN PRN Reason: Nausea and Vomiting Sodium Chloride (0.9 % Sodium Chloride Flush 3 Ml Syringe) [facility] Last Admin: 10/24/22 07:42 Dose: 3 ml Documented By: MARIA M Labs 10/22/22 09:00 10/23/22 07:49 Labs: Laboratory Results - last 24 hr 10/22/22 10/23/22 09:00 12:54 Smear Path Review SEE NOTE Vancomycin Trough 11.6 Assessment and Plan (1) Acute and chronic respiratory failure: Status: Acute (2) Postobstructive pneumonia: Status: Acute (3) Small cell lung cancer: Status: Acute (4) Anemia: Status: Acute Plan d#5 67yo F with SCLC, COPD, osteopenia, depression presented with AMS/dyspnea admitted for resp failure due to post-obstructive PNA transitioned to CHEMISTRY LABORATORY TECHNICIAN care 1/15/23 - morphine IV gtt - lorazepam prn agitation - oxygen for comfort In my clinical judgment, the patient requires continued inpatient hospitalization for the following reasons: CHEMISTRY LABORATORY TECHNICIAN care Time Spent With Patient Time: Total time managing care of this patient today ___25_ minutes. Quality Stroke Does the patient have a stroke diagnosis?: No VTE Prior VTE?: No VTE Risk Level:: Medical - moderate - high VTE Device Contraindication: Treatment Not Indicated VTE Drug Contraindication: N/A - Med Ordered
--- NOTE | 2022-10-24 11:25 | MHC.CLN ---
F/U PT IS MODERATELY MALNOURISHED SEE ALSO FULL CLINICAL NUTRITION ASSESSMENT DATED 10/21/22 DIET ADVANCED TO PUREED WITH NT LIQ-APPROPRIATE PT TRANSITIONED TO MANUFACTURING QUALITY INSPECTOR 10/23/22 PRIMARY GOAL IS COMFORT WILL FOLLOW WITH TEAM AND PROVIDE SUPPORT NEEDED RD TO FOLLOW X7 DAYS
--- NOTE | 2022-10-24 11:29 | MHC.SLORD ---
Speech Language Pathology Order Status: SHOW HOST OR HOSTESS attempted to see pt for dysphagia tx this morning- Pt sleeping, open mouth posture, not appropriate for PO trials. 10/21 SHOW HOST OR HOSTESS rec NDD1/NT. Do not present PO and hold tray if pt is sleepy, lethargic, or not engaging in feeding. SHOW HOST OR HOSTESS will continue to follow during hospitalization.
--- NOTE | 2022-10-24 11:33 | P.CDIC_ITS ---
CDI Concurrent Query Documentation Clarification: PHYSICIAN'S DOCUMENTATION REQUEST Date of Query: 10/24/22 [id number] Patient Name: Isabella Luz Admit Date: 10/20/22 Dear Doctor, A review of the medical record indicates additional documentation may be needed. Please review below and?update the documentation accordingly. Clinical Indicators: Lighting Fixtures Decorator documentation includes the diagnosis of malnutrition. Can you please confirm or rule out this diagnosis based on the findings below: Risk Factors/Clinical Indicators/Treatments Per hogshead salvage consult on 10/21: PT IS MODERATELY MALNOURISHED PT WITH MILDLY DEPLETED SUBCUTANEOUS FAT ?AND MUSCLE MASS, BMI 18 AND 11% SIGNIFICANT WT LOSS X 1 MONTH Per ED note on 10/20: complaining of feeling very weak BMI:?18.9 Weight:?45.359kg Height:?5ft 1in ? If possible, please provide in your progress notes, additional specificity regarding the severity of the malnutrition using the above information: ? l * Moderate * Severe * Other?(please specify) * Unable to determine? Use of terms such as suspected, likely, concern for, or probable (associated with a specific diagnosis that is being evaluated, monitored, or treated as if it exists) are acceptable and can be coded in the inpatient setting, when documented at the time of discharge. Thank you, Kaylee Hoff MS, RN, CCRN Extension: [phone] Please use your independent medical judgment in providing your response. THIS QUERY IS PART OF THE PERMANENT MEDICAL RECORD
--- NOTE | 2022-10-24 12:15 | PC.NURSE ---
Initiated GENETIC TECHNOLOGIST pump (morphine) with MESERET Olivier family and consumer education teacher at this time.
[2022-10-24] MEDS: Morphine Sulfate/NS 100 MG/100 ML PLAST..BAG IVCONT (12:17)
[2022-10-25] VITALS (9 sets, daily range): BP systolic 131; BP diastolic 90; PULSE 91–151; RESP 18–36; TEMP 37.2–37.9; O2SAT 76–86
[2022-10-25] MEDS: Morphine Sulfate/NS 100 MG/100 ML PLAST..BAG 6 MG IVCONT (06:18)
--- NOTE | 2022-10-25 06:28 | PC.NURSE ---
Hung a new bag of morphine for IRRIGATION EQUIPMENT MECHANIC pump with Edith Lion RN at 0618.
--- NOTE | 2022-10-25 07:22 | PC.NURSE ---
Assumed care of patient at this time. Patient appears comfortable, AIR BRAKE TESTER in place, 1L o2 via NC for comfort in place.
[2022-10-25] MEDS: 0.9 % Sodium Chloride Flush 3 ML SYRINGE IVFLUSH ×3 (07:27→19:50)
--- NOTE | 2022-10-25 09:47 | P.PNIM_ITS ---
Subjective Subjective Date of Service: 10/25/22 Interval History: on morphine gtt 6 mg/h at bedside Physical Exam Vital Signs: Vital Signs: Last Vital Signs Temp 100.2 F 10/25/22 07:46 Pulse 105 H 10/25/22 07:46 Resp 20 10/25/22 07:46 BP 120/69 10/24/22 04:17 Pulse Ox 83 L 10/25/22 07:46 O2 Del Method 10/25/22 07:46 O2 Flow Rate 1 10/25/22 00:05 FiO2 45 10/24/22 04:17 Oxygen Flow Rate 5 10/19/22 22:21 BMI result Body Mass Index 18.8 Gen: somnolent Lungs: diminished throughout Heart: regular rate and rhythm Abd: soft, non-tender Ext: no edema Skin: warm/well-perfused Neuro: somnolent Objective Data Active Medications Morphine Sulfate (Morphine Sulfate/Ns) 100 mg in 100 mls @ 0 mls/hr IVCONT .Q0M [facility]; Protocol Last Admin: 10/25/22 06:18 Dose: 6 mg/hr, 6 mls/hr Documented By: CAS Lorazepam (Lorazepam 2 Mg/Ml Vial) 0.5 mg IVPUSH Q4H PRN PRN Reason: anxiety/restlessness Last Admin: 10/24/22 06:34 Dose: 0.5 mg Documented By: ERIKA Ondansetron HCl (Ondansetron Hcl 4 Mg/2 Ml Vial) 4 mg IVPUSH Q8H PRN PRN Reason: Nausea and Vomiting Sodium Chloride (0.9 % Sodium Chloride Flush 3 Ml Syringe) 3 ml IVFLUSH [facility] Last Admin: 10/25/22 07:27 Dose: 3 ml Documented By: MARIA M Labs 10/22/22 09:00 10/23/22 07:49 Labs: Laboratory Results - last 24 hr 10/22/22 09:00 Smear Path Review SEE NOTE Microbiology Microbiology Results: Microbiology 10/19/22 23:11 Blood Culture - Final Blood - Venous No growth after 5 days. 10/19/22 22:58 Blood Culture - Final Blood - Venous No growth after 5 days. Assessment and Plan (1) Acute and chronic respiratory failure: Status: Acute (2) Postobstructive pneumonia: Status: Acute (3) Small cell lung cancer: Status: Acute (4) Anemia: Status: Acute Plan d#5 67yo F with SCLC, COPD, osteopenia, depression presented with AMS/dyspnea admitted for resp failure due to post-obstructive PNA transitioned to WIPING CLOTH CUTTER care 10/23/22 - morphine IV gtt - lorazepam prn agitation - oxygen for comfort - updated at bedside In my clinical judgment, the patient requires continued inpatient hospitalization for the following reasons: WIPING CLOTH CUTTER care Time Spent With Patient Time: Total time managing care of this patient today _20___ minutes. Quality Stroke Does the patient have a stroke diagnosis?: No VTE Prior VTE?: No VTE Risk Level:: Medical - moderate - high VTE Device Contraindication: Treatment Not Indicated VTE Drug Contraindication: N/A - Med Ordered
--- NOTE | 2022-10-25 15:05 | MHC.SLORD ---
Speech Language Pathology Order Status: Patient's status is now SENIOR TECHNICAL SPECIALIST (changed 10/23/22). STEP FINISHER will DC services at this time.
--- NOTE | 2022-10-25 17:25 | PC.NURSE ---
Dafne to d/c diet order at this time per Dr. Rockwell. 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
[2022-10-25] MEDS: LORazepam 2 MG/ML VIAL 0.5 MG IVPUSH (17:50)
[2022-10-25] MEDS: Morphine Sulfate 4 MG/ML CARTRIDGE IVPUSH ×2 (18:12→19:46)
--- NOTE | 2022-10-25 19:31 | PC.NURSE ---
Wasted 12.5ml of morphine drip with ezra mendosa rn at this time
[2022-10-25] MEDS: Morphine Sulfate/NS 100 MG/100 ML PLAST..BAG 9.9 MG IVCONT (19:32)
--- NOTE | 2022-10-25 21:55 | PM.EVENT ---
Event Note Date of Service: 10/25/22 Event Note: Notified by the nurse that patient was not responsive. Patient was unresponsive to painful stimulus. Heart and lung sounds absent. No spontaneous cardiac or respiratory activity. Patient nonreactive to verbal or painful stimulus. No pupillary reflex. Pupils fixed and dilated. Patient was pronounced at 21:30 on 10/25/2022. Patient was comfort measures only. Spoke to patient's , Triston and offered condolences. Questions answered. Time Spent With Patient Time: Total time managing care of this patient today ____ minutes.
--- NOTE | 2022-10-26 07:50 | PM.DDS ---
Discharge Sum: Prov Provider Primary care physician: Festus Quinones MD Admitting clinician: Chasity Rubio Attending physician on admission: Narinder Senior Consults: 10/20/22 13:00 Consult for Sitter Routine Reason for consultation: Pt needs 1:1 sitter for agitation and taking off Hi-Flow Pronouncing clinician: Jaden Spann Discharge Sum: Diag Contributing Factors (1) Acute and chronic respiratory failure: (2) Postobstructive pneumonia: (3) Small cell lung cancer: (4) Anemia: Discharge Sum: Summary Date and Time Date of admission: 10/20/22 12:56 Date of : 10/25/22 Time of : 21:30 Summary Details: from admission H+P on 10/20/22: Pt is a 67-year-old female with a PMH significant for?small cell lung cancer diagnosed three months ago followed by Dr. Phillips, COPD, osteopenia, and depression who presents to the ED from home after 4 days of altered mental status and increasing difficulty breathing.? According to EMS patient was found hypoxic satting in the 70s on RA. Pt was supposed to be on 4L supplemental O2. Of note, pt was recently diagnosed with small cell lung cancer and recently saw her preload supervisor Dr. Levine 2 days ago. Pt has appointment with onlcology in 2 days and was set to start chemotherapy next week. Pt is alert to person only and not capable of providing an HPI. In the ED patient was satting at 85% on 3 L of O2, increased to 5 L satting in the low 90s, then became hypoxic again.? O2 increased to 5-6 L without much effect.? ED attempted to switch patient to CPAP but patient could not tolerate mask so placed on high-flow with O2 sats in mid to high 90s, tolerating well. Llabs were significant for worsening H&H of 7.9/24.7, worsening platelets of 39, sodium of 147, potassium 3.1, lactic acid of 2.5, 2.1, and then 2.7, total bilirubin of 2.2, direct bilirubin 1.3, AST of 177, ALT of 98, alk-phos of 166, troponin mildly elevated at 35.8, and BNP of 213. VBG showed pH of 7.53 and HC03 of 43.? UA clear.? EKG showed sinus rhythm with no evidence of acute ischemia. CXR showed complete opacification of the left hemithorax with significant volume loss suggesting large component of atelectasis, possible superimposed postobstructive pneumonia or pleural fluid. CTA was negative for pulmonary embolism but showed complete collapse of the left lung and increased mediastinal lymphadenopathy consistent with metastatic disease.? CT of head found no acute intracranial pathology Pt was treated with IVF, Solu-Medrol, Zosyn and levofloxacin, potassium chloride, morphine and fentanyl. Pt will be admitted to the hospital acute respiratory failure in setting of obstructive pneumonia due to small cell lung cancer. This is a 67yo F with SCLC, COPD, osteopenia, depression who presented with AMS/dyspnea and was admitted for respiratory failure due to post-obstructive PNA. After failure to improve on steroids, high-flow oxygen, and broad-spectrum antibiotics, she transitioned to BLANKER OPERATOR care 10/23/22 due to unrelieved suffering from respiratory distress. She was placed on morphine for comfort and lorazepam for anxiety. She on 10/25/22 at 21:30. Additional Data Confirmation of as documented by pronouncing clinician: no pulse, no respirations, no heart sounds and pupils fixed and dilated Family: contacted Attending physician: Jessee Rockwell MD Was code activated?: No Autopsy requested?: No legal instruments examiner notified?: No Organ bank notified?: No Advance directives: Yes Hospice patient?: Yes
== END 2022-10-25 23:54 | disposition expired | DRG 180 ==
LOC: HO.ED 23:22 → HO.EDOVER 10-20 13:18 → HO.IMC 10-21 03:23
PROVIDERS: Hospitalist; Admitting Provider Student in an Organized Health Care Education/Training Program; Emergency Provider Emergency Medicine; PCP Internal Medicine; Visit Provider Family Medicine
DX: C34.92 Malignant neoplasm of unspecified part of left bronchus or lung (principal); G93.41 Metabolic encephalopathy; J18.9 Pneumonia, unspecified organism; J96.21 Acute and chronic respiratory failure with hypoxia; C77.1 Secondary and unspecified malignant neoplasm of intrathoracic lymph nodes; E44.0 Moderate protein-calorie malnutrition; Z68.1 Body mass index [BMI] 19.9 or less, adult; F17.210 Nicotine dependence, cigarettes, uncomplicated; Z51.5 Encounter for palliative care; Z66 Do not resuscitate; Z71.6 Tobacco abuse counseling; Z20.822 Contact with and (suspected) exposure to COVID-19; D63.0 Anemia in neoplastic disease; Z99.81 Dependence on supplemental oxygen; Z88.0 Allergy status to penicillin; Z79.51 Long term (current) use of inhaled steroids; Z79.899 Other long term (current) drug therapy
CPT/HCPCS: 36415; 70450; 71045; 71275; 80048; 80053; 80076; 80202; 80307; 81003; 82140; 82272; 82565; 82803; 83605; 83735; 83880; 84443; 84484; 85007; 85025; 85027; 85610; 86850; 86900; 86901; 86923; 87040; 87635; 92610; 92950; 93005; 94640; 99285; J1170; J1650; J1956; J2060; J2270; J2930; J3010; J3370; J3371; P9016; Q9967